=== PATIENT | female | born 1955 | race Caucasian/White ===

== ENCOUNTER 2019-09-15 08:10 | Inpatient (IN) | payer MEDICAID ==
[2019-09-15] MEDS ORDERED: MORPHINE 2 MG/ML CARPUJECT IVP STA (08:36)
[2019-09-15] MEDS ORDERED: IPRATROPIUM 0.2 MG/ML NEB INH STA ×2 (08:36→11:01)
[2019-09-15] MEDS ORDERED: LEVALBUTEROL 1.25 MG/3 ML NEB INH STA ×3 (08:36→11:01)
[2019-09-15] MEDS ORDERED: DEXAMETHASONE 10 MG/ML VIAL IVP STA (08:38)
--- NOTE | 2019-09-15 08:39 | ED Physician Documentation ---
PD HPI DYSPNEA - Stated complaint Stated Complaint: SOA - Chief complaint Chief Complaint: Resp - History obtained from History obtained from: Patient - History of Present Illness Timing - onset: How many days ago (several days to a week of worsening dyspnea, more with exertion and now overnight even at rest. She has history of COPD and uses Atrovent nebulizer along with Spiriva and Advair. She does not use albuterol as it has made her jittery in the past. She does have history of lung cancer and had opted not to have any chemo or radiation so currently not sure of the staging of it. It was diagnosed 2 years ago is still localized in the lung at that time. Likely is more spread at this point.) Timing - onset during: Light activity, Exertion Timing - duration: Days, Weeks (1) Timing - details: Gradual onset, Still present Inciting event(s): No: Out of meds, URI (Has a baseline chronic cough for the last 2 years. She denies it increasing recently and no added sputum production fevers or upper respiratory symptoms.) Improved by: O2 Worsened by: Exertion, Coughing Associated symptoms: Cough (baseline dry), Wheezing, Anxiety. No: Fever, Hemoptysis, Chest pain / discomfort, Palpitations, Bilateral edema Review of Systems Constitutional: reports: Fatigue. denies: Fever, Chills, Myalgias, Weight Loss, Sweats Nose: denies: Rhinorrhea / runny nose, Congestion Throat: denies: Sore throat Cardiac: denies: Chest pain / pressure, Palpitations, Pedal edema, Calf pain Respiratory: reports: Dyspnea, Cough, Wheezing GI: denies: Abdominal Pain, Nausea, Vomiting, Diarrhea, Bloody / black stool : denies: Dysuria Musculoskeletal: denies: Extremity swelling Neurologic: reports: Generalized weakness. denies: Focal weakness, Numbness, Near syncope Psychiatric: reports: Depressed, Anxiety Endocrine: denies: Weight loss Immunocompromised: denies: Immunocompromised, Chemotherapy PD PAST MEDICAL HISTORY - Past Medical History Cardiovascular: None Respiratory: COPD, Other (lung CA, opted for no treatment; Dx 2 years ago) Endocrine/Autoimmune: None - Present Medications Home Medications: Ambulatory Orders Medication Instructions Recorded Confirmed ALPRAZolam [Alprazolam] 0.5 mg PO QID PRN 09/15/19 Atorvastatin Calcium 80 mg PO QPM 09/15/19 Balsalazide Disodium 750 mg PO DAILY 09/15/19 Budesonide/Formoterol Fumarate 2 puffs INH BID 09/15/19 [Symbicort 80-4.5 Mcg Inhaler] Buspirone HCl 30 mg PO BID 09/15/19 Citalopram Hydrobromide 40 mg PO DAILY 09/15/19 [Citalopram HBr] Fluticasone [Flonase] 2 sprays JEANNE DAILY 09/15/19 Hydrocodone/Acetaminophen 1 tab PO QID PRN 09/15/19 [Hydrocodone-Acetamin 5-325 mg] Ipratropium [Atrovent] 0.2 mg INH 09/15/19 Ipratropium [Atrovent] 0.5 mg INH Q6H 09/15/19 Mesalamine 4 gm RI QPM 09/15/19 Mesalamine W/Cleansing Wipes 1 applic RI DAILY PM 09/15/19 [Mesalamine 4 gm/60 ml Kit] Metoprolol Succinate 25 mg PO DAILY 09/15/19 SUMAtriptan [Sumatriptan] 20 mg JEANNE Q24H PRN MDD 40MG 09/15/19 Tiotropium [place] [Spiriva] 1 puffs INH DAILY 09/15/19 Trazodone HCl 100 mg PO QPM 09/15/19 lisinopriL [Zestril] 5 mg PO DAILY 09/15/19 - Allergies Allergies/Adverse Reactions: Allergies Allergy/AdvReac Type Severity Reaction Status Date / Time No Known Drug Allergies Allergy Verified 09/15/19 08:21 PD ED PE NORMAL - Vitals Vital signs reviewed: Yes - General General: Alert and oriented X 3, Well developed/nourished - HEENT HEENT: Moist mucous membranes, Pharynx benign - Neck Neck: Supple, no meningeal sign, No adenopathy - Cardiac Cardiac: No murmur. No: RRR (regular but tachycardic) - Respiratory Respiratory: Other (She is tachypneic with some work of breathing initially. She is able to talk in near complete sentences. She is awake and conversant.). No: Clear bilaterally (She has diffuse expiratory wheezes and tight sounds. There is no coarse nests noted.) - Abdomen Abdomen: Soft, Non tender - Female Female : Deferred - Rectal Rectal: Deferred - Back Back: No CVA TTP - Derm Derm: Normal color, Warm and dry - Extremities Extremities: No tenderness to palpate, Normal ROM s pain, No calf tenderness / cord, Other (1+ edema in both legs. ) - Neuro Neuro: Alert and oriented X 3, No motor deficit, Normal speech Results - Vitals Vitals: Vital Signs - 24 hr 09/15/19 09/15/19 09/15/19 08:21 08:25 08:50 Temperature 37 C Heart Rate 136 H 134 H 132 H Respiratory 24 24 25 H Rate Blood Pressure 122/85 H 123/73 O2 Saturation 86 L 83 L 09/15/19 09/15/19 09/15/19 08:58 09:39 09:52 Temperature Heart Rate 130 H 125 H 118 H Respiratory 24 20 20 Rate Blood Pressure 131/94 H 105/67 O2 Saturation 87 L 88 L 09/15/19 09/15/19 09/15/19 10:02 10:32 11:11 Temperature 37.8 C H Heart Rate 121 H 122 H 120 H Respiratory 20 19 20 Rate Blood Pressure 102/71 O2 Saturation 94 85 L 09/15/19 11:12 Temperature Heart Rate 118 H Respiratory 19 Rate Blood Pressure 119/65 O2 Saturation 92 Oxygen O2 Source Oxymask Oxygen Flow Rate 8 - EKG (time done) 08:38 Rate: Rate (enter#) (132) Rhythm: Sinus tachycardia [place]: Normal Intervals: Normal RI QRS: Normal Ischemia: Normal ST segments. No: ST elevation c/w ischemia, ST depression - Labs Labs: Laboratory Tests 09/15/19 09/15/19 09/15/19 10:00 10:00 10:00 WBC 17.0 H RBC 4.48 Hgb 12.4 Hct 39.4 MCV 87.9 MCH 27.7 MCHC 31.5 L RDW 15.0 Plt Count 378 MPV 8.2 Neut # (Auto) 15.1 H Lymph # (Auto) 0.9 L Will # (Auto) 0.6 Eos # (Auto) 0.2 Baso # (Auto) 0.1 Absolute Nucleated RBC 0.00 Nucleated RBC % 0.0 D-Dimer > 1050.0 H Bld Gas Analysis Time Sample Site ABG pH ABG pCO2 ABG pO2 ABG HCO3 ABG Total CO2 ABG O2 Saturation ABG Base Excess Ugo Test O2 Delivery Device O2 Liters/Min Sodium 134 L Potassium 4.6 Chloride 98 L Carbon Dioxide 26 Anion Gap 10.0 BUN 13 Creatinine 0.7 Estimated GFR (MDRD) 85 L Glucose 123 H Calcium 8.7 Total Bilirubin 0.6 AST 27 ALT 14 Alkaline Phosphatase 64 Troponin I High Sens B-Natriuretic Peptide Total Protein 7.1 Albumin 3.7 Globulin 3.4 Albumin/Globulin Ratio 1.1 Lipase 20 L 09/15/19 09/15/19 09/15/19 10:00 10:00 10:53 WBC RBC Hgb Hct MCV MCH MCHC RDW Plt Count MPV Neut # (Auto) Lymph # (Auto) Will # (Auto) Eos # (Auto) Baso # (Auto) Absolute Nucleated RBC Nucleated RBC % D-Dimer Bld Gas Analysis Time 1053 Sample Site RIGHT RADIAL ABG pH 7.46 H ABG pCO2 37 ABG pO2 47 L* ABG HCO3 25.5 ABG Total CO2 26.7 ABG O2 Saturation 85 L* ABG Base Excess 1.8 Ugo Test POSITIVE O2 Delivery Device OXYMASK O2 Liters/Min 6.00 Sodium Potassium Chloride Carbon Dioxide Anion Gap BUN Creatinine Estimated GFR (MDRD) Glucose Calcium Total Bilirubin AST ALT Alkaline Phosphatase Troponin I High Sens 4.2 B-Natriuretic Peptide 95 Total Protein Albumin Globulin Albumin/Globulin Ratio Lipase PD MEDICAL DECISION MAKING - ED course Complexity details: re-evaluated patient (Breathing more easily. She does appear to be resting. Concern was for hypercarbia rather than just being relaxed and so blood gas was done which showed a low oxygenation but normal PCO2 and pH. The patient's oxygenation was increased with nasal cannula and partial rebreather Ventimask to maintain sats around 90 to 92%. She had unlabored respirations. I did discuss with the patient BiPAP if needed and she was agreeable. I talked with her about intubation and CPR regarding CODE STATUS and she and her dining room captain were uncommitted at this time but would want to think about it with further discussion. She had not wanted treatment of her lung cancer but this is not highly progressed so she is not really at the point of palliative or hospice care. This seems to be mainly an exacerbation of her COPD with potential infectious underlying etiology at this point.), considered differential (She is wheezy with prolonged expiratory phase. Likely COPD exacerbation. She denies cough or current head cold type symptoms. Will get an x-ray to to see any obvious progression of her lung cancer. She could have a considerable effusion or infiltrate or mucous plugging. Check her labs and blood count as well. Initially start with Xopenex and Atrovent as she had had jitteriness from regular albuterol in the past. She is typically on 4 L nasal cannula which right now is providing her at 86 to 90% sats. This should improve with the nebulizer treatment.), d/w patient, d/w senior financial consultant (I talked with the hospitalist regarding further care. I did convey their desire for BiPAP and further discussion regarding other CODE STATUS. I did convey the patient is very anxious and tight area so prior would need sedation or some anxiolysis if doing a CT scan or BiPAP.) Departure - Departure Disposition: 66 [facility] DC/Xfer Clinical Impression: COPD exacerbation Dyspnea Qualifiers: Dyspnea type: dyspnea on exertion Qualified Code(s): R06.09 - Other forms of dyspnea Lung cancer Qualifiers: Laterality: left Lung location: upper lobe of lung Qualified Code(s): C34.12 - Malignant neoplasm of upper lobe, left bronchus or lung Condition: Stable Record reviewed to determine appropriate education?: Yes Discharge Date/Time: 09/15/19 12:22
--- NOTE | 2019-09-15 09:45 | XRAY Report ---
Reason: dyspnea/COPD/lung CA Procedure Date: 09/15/2019 Accession Number: [id number] / [id number] Procedure: XR - Chest 2 View X-Ray CPT Code: 76482 Final Report FULL RESULT: EXAM: CHEST RADIOGRAPHY EXAM DATE: 09/15/2019 09:35 AM. CLINICAL HISTORY: Dyspnea/COPD/lung CA. Increased O2 needs. Not able to breathe well. Diminished lung sounds. Wheezing. COMPARISON: None. TECHNIQUE: 2 views. FINDINGS: Lungs/Pleura: Hyperinflation. Left mid and lower lung airspace opacity also seen in the right lung base. No pneumothorax. No pleural effusions. Mediastinum: Heart size upper normal. Aorta is tortuous. Other: Degenerative changes. IMPRESSION: 1. Left mid and lower lung and right basilar airspace consolidation which may represent multilobar pneumonia. No comparison radiographs are available. Follow-up recommended. 2. Hyperinflation. RADIA
[2019-09-15 10:04] LABS: BASOPHILS # (AUTO) 0.1 10^3/uL (0.0-0.1); BASOPHILS % (AUTO) 0.4 %; EOSINOPHILS # (AUTO) 0.2 10^3/uL (0.0-0.7); EOSINOPHILS % (AUTO) 0.9 %; HGB - HEMOGLOBIN 12.4 g/dL (12.0-16.0); LYMPHOCYTES # (AUTO) 0.9 10^3/uL (1.5-3.5); LYMPHOCYTES % (AUTO) 5.2 %; MEAN CORPUSCULAR HEMOGLOBIN 27.7 pg (27.0-31.0); MEAN CORPUSCULAR HGB CONC 31.5 g/dL (32.0-36.0); MEAN CORPUSCULAR VOLUME 87.9 fL (81.0-99.0); MEAN PLATELET VOLUME 8.2 fL (7.9-10.8); MONOCYTES # (AUTO) 0.6 10^3/uL (0.0-1.0); MONOCYTES % (AUTO) 3.4 %; NEUTROPHILS # (AUTO) 15.1 10^3/uL (1.5-6.6); NEUTROPHILS % (AUTO) 89.1 %; PLT - PLATELET COUNT 378 10^3/uL (130-450); RED BLOOD COUNT 4.48 10^6/uL (4.20-5.40)
[2019-09-15] MEDS ORDERED: cefTRIAXone 1 GM VIAL IVP STA (10:12)
[2019-09-15 10:16] LABS: ALBUMIN 3.7 g/dL (3.2-5.5); ALBUMIN/GLOBULIN RATIO 1.1 (1.0-2.2); BILIRUBIN,TOTAL 0.6 mg/dL (0.2-1.0); CALCIUM 8.7 mg/dL (8.5-10.3); CREATININE 0.7 mg/dL (0.4-1.0); TOTAL PROTEIN 7.1 g/dL (6.7-8.2)
[2019-09-15] MEDS ORDERED: SODIUM CHLORIDE 0.9% 1,000 ML IV ONE (11:00)
[2019-09-15] MEDS ORDERED: LORazepam 2 MG/ML VIAL IVP STA (11:01)
[2019-09-15] MEDS ORDERED: SODIUM CHLORIDE FLUSH 0.9% 10 ML SYRINGE IVP PRN (11:27)
[2019-09-15 11:49] LABS: ABG PCO2 37 mmHg (34-45); ABG PH 7.46 (7.35-7.45)
[2019-09-15 11:50] LABS: ABG BASE EXCESS 1.8 mmol/L (-2.0-3.0); ABG HCO3 25.5 mmol/L (22.0-26.0); ABG TCO2 26.7 MMOL/L (21.0-29.0); ALLEN TEST POSITIVE
[2019-09-15 11:52] LABS: ABG PO2 47 mmHg (80-100)
[2019-09-15 11:53] LABS: ABG OXYGEN SATURATION 85 % (94-98)
[2019-09-15] MEDS ORDERED: PIPERACILLIN/TAZOBACTAM 3.375 GM in SODIUM CHLORIDE 0.9% MINIBAG 100 ML IV SCH (13:00)
[2019-09-15] MEDS ORDERED: METOPROLOL SUCCINATE 25 MG TABLET PO SCH (13:00)
--- NOTE | 2019-09-15 13:27 | HISTORY & PHYSICAL EXAMINATION ---
Chief Complaint - Chief Complaint Chief Complaint: shortness of breath, cough History of Present Illness - Admitted From Admitted From:: ED - History Obtained From Records Reviewed: yes History obtained from: patient, her S.O, and chart review Exam Limitations: anxiety - History of Present Illness HPI Comment/Other: Eve Mcmanus is an ill appearing 63-year old white female with a past medical history of hypertension, myocardial infarction, CAD, migraines, GERD, ulcerative colitis, COPD on home oxygen, tobacco dependence in remission, known lung cancer, and anxiety. She was brought into the ED by her significant other with a 2 week history of a progressive cough, increased shortness of breath, non- productive cough, and increased oxygen needs from 4L nasal cannula at home to 6L without improvement. Imaging of a chest x-ray while in the ED showed left mid to lower lung, right consolidation, which may represent multi-lobar pneumonia. Labs show an elevated WBC count of 17, sodium 134, d-dimer 1050, glucose 123, and an ABG with an elevated pH of 7.46, pO1 47, O2 saturation 85. The patient was anxious on exam and could express her wishes of full resuscitation in the event she requires temporary respiratory support, BiPAP if needed. She was swabbed for COVID-19 while in the ED, and was placed on a high flow nasal cannula with droplet precautions once arriving to the nursing unit. She has been admitted for inpatient care for COPD exacerbation, pneumonia, and evaluation via CT for pulmonary emboli. History - Past Medical History Cardiovascular: reports: Hypertension, High cholesterol, Coronary artery disease, Peripheral Vascular Disease, Murmur Respiratory: reports: COPD, Emphysema, Shortness of breath (home oxygen @ 4L chronically), Other (lung cancer) Neuro: reports: Headaches, Migraines Endocrine/Autoimmune: reports: None GI: reports: GERD, Ulcerative colitis WASH AND GREASER: reports: None : reports: Incontinence (stress), Nocturia, Frequency HEENT: reports: Chronic vision loss, Chronic sinusitis, Chronic hearing loss Psych: reports: Anxiety Musculoskeletal: reports: Osteoarthritis, Fatigue, Chronic back pain Derm: reports: None MRSA Hx?: No Other Past Medical History: lung cancer, pt opted no treatment - Past Surgical History General: reports: Colonoscopy, EGD - Family & Social History Living arrangement: At home Living Situation: With spouse/s.o. Social History Notes: [place] Khari, her significant other. She admits to life long tobacco dependence, denies alcholism, or illicit drug use. She wishes to be a FULL code. - Substance History Use: Uses substance without health or social issues: NONE Abuse: Recurrent use of substance despite neg consequences: NONE Dependence: Experiences withdrawal or developed tolerances: NONE - POLST Patient has POLST: No POLST Status: Full Code Meds/Allgy - Home Medications Home Medications: Ambulatory Orders Medication Instructions Recorded Confirmed ALPRAZolam [Alprazolam] 0.5 - 1 mg PO TID PRN 09/15/19 09/15/19 Atorvastatin Calcium 80 mg PO QPM 09/15/19 09/15/19 Balsalazide Disodium 750 mg PO DAILY 09/15/19 09/15/19 Budesonide/Formoterol Fumarate 2 puffs INH BID 09/15/19 09/15/19 [Symbicort 80-4.5 Mcg Inhaler] Buspirone HCl 20 mg PO TID 09/15/19 09/15/19 Citalopram Hydrobromide 40 mg PO DAILY 09/15/19 09/15/19 [Citalopram HBr] Fluticasone [Flonase] 2 sprays JEANNE DAILY 09/15/19 09/15/19 Hydrocodone/Acetaminophen 1 tab PO QID PRN 09/15/19 09/15/19 [Hydrocodone-Acetamin 5-325 mg] Ipratropium [Atrovent] 0.2 mg INH QID PRN 09/15/19 09/15/19 Mesalamine 4 gm HI QPM 09/15/19 09/15/19 Metoprolol Succinate 25 mg PO DAILY 09/15/19 09/15/19 SUMAtriptan [Sumatriptan] 20 mg JEANNE Q24H PRN MDD 40MG 09/15/19 09/15/19 Tiotropium [place] [Spiriva] 1 puffs INH QPM 09/15/19 09/15/19 Trazodone HCl 100 mg PO QPM 09/15/19 09/15/19 lisinopriL [Zestril] 5 mg PO DAILY 09/15/19 09/15/19 - Allergies Allergies/Adverse Reactions: Allergies Allergy/AdvReac Type Severity Reaction Status Date / Time No Known Drug Allergies Allergy Verified 09/15/19 08:21 Review of Systems - Constitutional Constitutional: reports: Fatigue, Fever, Chills, Weakness, Poor appetite - Eyes Eyes: reports: Vision loss - Ears, Nose & Throat Ears, Nose & Throat: reports: Tinnitus, Vertigo, Postnasal drainage, Sore throat, Hoarseness - Cardiovascular Cariovascular: reports: Chest pain, Edema, Lightheadedness, Exertional dyspnea, Decr. exercise tolerance, Orthopnea - Respiratory Respiratory: reports: Cough, Sputum production, Wheezing, Orthopnea, SOB at rest, SOB with exertion - Gastrointestinal Gastrointestinal: reports: Diarrhea, Change in bowel habits, Nausea, Reflux/heartburn, Bloating, Poor appetite - Genitourinary Genitourinary: reports: Dysuria, Frequency, Incontinence, Nocturia - Musculoskeletal Musculoskeletal: reports: Back pain, Muscle aches, Limited range of motion - Integumentary Integumentary: reports: Dryness - Neurological Neurological: reports: General weakness, Headache, Dizziness, Memory problems, Pre-existing deficit - Psychiatric Psychiatric: reports: Depression, Anxiety - Hematologic/Lymphatic Hematologic/Lymphatic: reports: Anemia, Bleeding tendencies, Recurrent infections - All Other Systems All Other Systems: reports: Reviewed and negative Prior Level of Functionality: Minimally ambulatory, no recent falls, lives w/ significant other, Khari Exam - Vital Signs Reviewed Vital Signs: Yes Vital Signs: Vital Signs x48h Temp Pulse Resp BP Pulse Ox 09/15/19 12:04 37.4 C 117 H 18 103/62 95 09/15/19 11:55 116 H 18 84/63 L 94 09/15/19 11:12 118 H 19 119/65 92 09/15/19 11:11 120 H 20 09/15/19 10:32 37.8 C H 122 H 19 85 L 09/15/19 10:02 121 H 20 102/71 94 09/15/19 09:52 118 H 20 09/15/19 09:39 125 H 20 105/67 88 L 09/15/19 08:58 130 H 24 131/94 H 87 L 09/15/19 08:50 132 H 25 H 09/15/19 08:25 134 H 24 123/73 83 L 09/15/19 08:21 37 C 136 H 24 122/85 H 86 L - Physical Exam General Appearance: positive: Alert, Moderate distress, Anxious Eyes Bilateral: positive: PERRL, No lid inflammation ENT: positive: Pharyngeal erythema, Dry mucous membranes Neck: positive: No JVD, Trachea midline, Stiff neck Respiratory: positive: Chest non-tender, Rhonchi, Other (scattered crackles to left mid lung, diminished, bilaterally) Cardiovascular: positive: No gallop, Tachycardia, Systolic murmur, Decreased pulse(s) Peripheral Pulses: positive: 1+ Abdomen: positive: Non-tender, Nml bowel sounds, Other (rounded, soft) Back: positive: Nml inspection Skin: positive: No rash, Warm, Dry Extremities: positive: Non-tender, Full ROM, Pedal edema (trace, BLEs), Joint swelling Neurologic/Psychiatric: positive: Oriented x3, CN's nml (2-12), Motor nml, Sensation nml, Weakness, Sensory loss, Slurred/abnml speech (short sentances, due to breathing difficulties), Depressed mood/affect Reflexes: Bicep (R): 3+, Bicep (L): 3+ Conclusion/Plan - Problem List (1) COPD exacerbation Conclusion/Plan: -Known tobacco dependence, now in remission -Known lung cancer (left lung) -Baseline home oxygen -Home inhalers include: Spiriva, Atrovent, Symbicort, and Flonase nasal spray -Presenting symptoms, progressive cough, progressive shortness of breath, air hunger, increased oxygen needs, elevated WBC count, all requiring inpatient stay -CT of chest was not obtained due to increased anxiety, baseline patient claustrophobia -COVID-19 swabs in process -Influenza A & B to be obtained -Starting high dose IV steroids, IV Zosyn, expectorants, Xopenex nebs, routine respiratory cares -Monitor for improvement Acute respiratory failure with hypoxia -Baseline home oxygen at 4L, turned up to 6L without relief -Abnormal ABG, showing alkalosis, compensating -Treating initially for COPD exacerbation with pneumonia -Await influenza and COVID-19 swabs -Await chest CT to evaluate for pulmonary emboli, progression of lung cancer, and/or pneumonia -Support respiratory system with high flow nasal cannula, respiratory cares -Monitor for improvement Pneumonia -Progressive and productive cough which first started 2-weeks ago -Now with worsening hypoxia requiring inpatient treatment -No sick contacts per patient on exam -Starting IV Zosyn, IV steroids, routine Xopenex nebulizers -Await chest CT results Lung cancer -Patient had a lung biopsy at an unknown time, confirming this, left lung -Predisposing her to a higher risk of DVT/PE, COVID-19 or recurrent pneumonia -Initial chest x-ray is questionable for lung tumor, or acute infiltrate -Baseline home oxygen, ~4L -Await chest CT results to guide treatment Anxiety disorder -Known history of this, takes alprazolam, buspirone, and trazodone for sleep at home -Continues on lorazepam, morphine for air hunger, and home buspirone -IV lorazepam prior to chest CT tonight -Monitor for air hunger, or other symptoms - Lab Results Lab results reviewed: Yes Fish Bones: 09/15/19 10:00 09/15/19 10:00 - Diagnostic Imaging Results Diagnostic Imaging Results: positive: Final report reviewed Diagnostic Imaging Results Comments: EXAM: CHEST RADIOGRAPHY 09/15/2019 09:35 AM IMPRESSION: 1. Left mid and lower lung and right basilar airspace consolidation which may represent multi-lobar pneumonia. No comparison radiographs are available. Follow-up recommended. 2. Hyperinflation. Core Measures - Anticipated LOS I expect patient to be DC'd or transferred within 96 hours.: Yes - DVT/VTE - Prophylaxis VTE/DVT Device ordered at admit?: Yes VTE/DVT Prophylaxis med ordered at admit?: Yes - Stroke - Rehab Assessment Rehab services assessment to be ordered?: No Not Ordered - Medical Reason: Contraindicated - AMI - Statin at Admit Aspirin Prescribed on Admit: Yes
[2019-09-15] MEDS: LEVALBUTEROL 1.25 MG/3 ML NEB INH SCH ×2 (14:05→19:23)
[2019-09-15] MEDS: ENOXAPARIN 40 MG/0.4 ML SYRINGE SUBQ SCH (14:31)
[2019-09-15] MEDS: methylPREDNISolone SUCCINATE 125 MG/2 ML VIAL IVP SCH ×3 (14:32→21:30)
[2019-09-15] MEDS: PIPERACILLIN/TAZOBACTAM 3.375 GM in SODIUM CHLORIDE 0.9% MINIBAG 100 ML IV SCH ×2 (16:13→21:29)
[2019-09-15] MEDS: SODIUM CHLORIDE FLUSH 0.9% 10 ML SYRINGE IVP SCH (16:14)
[2019-09-15] MEDS: LORazepam 1 MG TABLET PO PRN (16:27)
[2019-09-15] MEDS: MORPHINE 2 MG/ML CARPUJECT IVP PRN (16:28)
--- NOTE | 2019-09-15 16:40 | PHARMACY PROGRESS NOTE ---
- Best Possible Medication History Admit Date and Time: 09/15/19 1126 Processed by: Pharmacy Medication History completed: Yes Patient Interview: Pt unable to participate Secondary Source(s): Pharmacy records, Insurance records (Medication list gen erated from consistent and recent pharmacy refill history over previous 12 months from [employer] application, that included instructions. Patient currently in restricted access status.) As the person ultimately responsible for medication therapy, providers are able to order a medication from an existing home medication list in [facility] via the "Reconcile Routine" prior to Confirmation of that medication by dealer support technician. Such practice is discouraged except when the physician, in their clinical judgment, deems that a medical need exists for a medication without regard to previous use.
[2019-09-15] MEDS ORDERED: HYDROcod/ACETAM 5/325 MG TABLET PO PRN (17:41)
[2019-09-15] MEDS ORDERED: LORazepam 2 MG/ML VIAL IVP ONE (18:00)
[2019-09-15] MEDS: BUDESONIDE 0.5 MG/2 ML NEB INH SCH (19:23)
[2019-09-15] MEDS: FORMOTEROL FUMARATE NEB 20 MCG/2 ML INH SCH (19:23)
[2019-09-15] MEDS: guaiFENesin 600 MG TABLET PO SCH (21:30)
[2019-09-15] MEDS: busPIRone 5 MG TABLET PO SCH (21:30)
[2019-09-15] MEDS: traZODone 50 MG TABLET PO SCH (21:30)
[2019-09-15] MEDS ORDERED: AZITHROMYCIN 250 MG TABLET PO STA (22:43)
[2019-09-16] MEDS: LEVALBUTEROL 1.25 MG/3 ML NEB INH PRN (00:46)
[2019-09-16] MEDS: SODIUM CHLORIDE FLUSH 0.9% 10 ML SYRINGE IVP SCH ×3 (00:54→16:16)
[2019-09-16] MEDS: LORazepam 1 MG TABLET PO PRN ×3 (00:59→16:38)
[2019-09-16 05:36] LABS: BASOPHILS % (AUTO) 0.1 %; EOSINOPHILS % (AUTO) 0.1 %; HGB - HEMOGLOBIN 10.5 g/dL (12.0-16.0); LYMPHOCYTES # (AUTO) 0.9 10^3/uL (1.5-3.5); LYMPHOCYTES % (AUTO) 7.2 %; MEAN CORPUSCULAR HEMOGLOBIN 27.6 pg (27.0-31.0); MEAN CORPUSCULAR HGB CONC 30.6 g/dL (32.0-36.0); MEAN CORPUSCULAR VOLUME 90.3 fL (81.0-99.0); MONOCYTES # (AUTO) 0.2 10^3/uL (0.0-1.0); MONOCYTES % (AUTO) 1.6 %; NEUTROPHILS # (AUTO) 10.6 10^3/uL (1.5-6.6); NEUTROPHILS % (AUTO) 90.5 %; PLT - PLATELET COUNT 324 10^3/uL (130-450); RED CELL DISTRIBUTION WIDTH 15.5 % (12.0-15.0); WHITE BLOOD COUNT 11.7 x10^3/uL (4.8-10.8)
[2019-09-16 05:49] LABS: ALBUMIN 3.2 g/dL (3.2-5.5); ALBUMIN/GLOBULIN RATIO 0.9 (1.0-2.2); BILIRUBIN,TOTAL 0.6 mg/dL (0.2-1.0); CALCIUM 8.3 mg/dL (8.5-10.3); CREATININE 0.8 mg/dL (0.4-1.0); MAGNESIUM 2.3 mg/dL (1.7-2.8); PHOSPHORUS 3.3 mg/dL (2.5-4.6); TOTAL PROTEIN 6.6 g/dL (6.7-8.2)
[2019-09-16] MEDS: methylPREDNISolone SUCCINATE 125 MG/2 ML VIAL IVP SCH ×2 (06:04→13:48)
[2019-09-16] MEDS: busPIRone 5 MG TABLET PO SCH ×3 (06:04→21:47)
[2019-09-16] MEDS: PIPERACILLIN/TAZOBACTAM 3.375 GM in SODIUM CHLORIDE 0.9% MINIBAG 100 ML IV SCH ×3 (06:05→21:46)
[2019-09-16] MEDS: MORPHINE 2 MG/ML CARPUJECT IVP PRN ×2 (06:24→20:32)
[2019-09-16] MEDS: BUDESONIDE 0.5 MG/2 ML NEB INH SCH ×2 (08:06→19:47)
[2019-09-16] MEDS: FORMOTEROL FUMARATE NEB 20 MCG/2 ML INH SCH ×2 (08:06→19:46)
[2019-09-16] MEDS: LEVALBUTEROL 1.25 MG/3 ML NEB INH SCH ×4 (08:06→19:46)
[2019-09-16] MEDS ORDERED: FLUTICASONE NASAL SPRAY NAS SCH (09:00)
[2019-09-16] MEDS ORDERED: FUROSEMIDE 40 MG/4 ML VIAL IVP SCH (09:00)
[2019-09-16] MEDS ORDERED: POTASSIUM CHLORIDE 20 MEQ TABLET PO SCH (09:01)
[2019-09-16] MEDS: AZITHROMYCIN 250 MG TABLET PO SCH (09:31)
[2019-09-16] MEDS: guaiFENesin 600 MG TABLET PO SCH ×2 (09:31→21:47)
[2019-09-16] MEDS: CITALOPRAM HYDROBROMIDE 20 MG TABLET PO SCH (09:31)
[2019-09-16] MEDS: MAGNESIUM OXIDE 400 MG TABLET PO SCH ×2 (09:31→16:28)
[2019-09-16] MEDS: METOPROLOL SUCCINATE 25 MG TABLET PO SCH (09:32)
[2019-09-16] MEDS: OXYMETAZOLINE HCL 100 SPRAYS BOTTLE NAS SCH ×2 (09:33→21:44)
[2019-09-16] MEDS: ENOXAPARIN 40 MG/0.4 ML SYRINGE SUBQ SCH (09:33)
--- NOTE | 2019-09-16 13:50 | PROVIDER PROGRESS NOTE ---
Subjective - Prog Note Date Prog Note Date: 09/16/19 Prog Note Time: 13:49 - Subjective Pt reports feeling: Improved Subjective: Eve has been tearful today again, frustration, and fear are the ring leaders in this reaction, steroids are changing her into a "troll" with having profound mood swings. Eve and her significant other, Khari were given a summary of the [facility] hospital diagnoses and what we are doing for her to clear up any questions and to help them lead her care. She continues to have profound anxiety surrounding the possibility of a chest CT. She will undergo both an echocardiogram and duplex Doppler to further rule out or rule in the possibility of pulmonary emboli. She has had improvement in her symptoms since the IV lasix, but still has intermittent tachycardia on telemetry. Awaiting final read on COV ID [id number] result before both of the tests tomorrow. Current Medications - Current Medications Current Medications: Active Medications: [place] 5/325 2 tab PO QID PRN Azithromycin (Zithromax) 250 mg PO DAILY AMADO Budesonide (Pulmicort) 0.5 mg INH RTBID AMADO Buspirone HCl (Buspar) 20 mg PO TID AMADO Citalopram Hydrobromide (Celexa) 40 mg PO DAILY AMADO Enoxaparin Sodium (Lovenox) 40 mg SUBQ DAILY AMADO Formoterol Fumarate (Perforomist) 20 mcg INH RTBID AMADO Guaifenesin (Mucinex) 600 mg PO BID AMADO Piperacillin Sod/Tazobactam 100 mls @ 25 mls/hr IV Q8H AMADO Levalbuterol HCl (Xopenex) 1.25 mg INH RTQ4H PRN Levalbuterol HCl (Xopenex) 1.25 mg INH RTBID AMADO Lorazepam (Ativan) 1 mg PO Q6H PRN Magnesium Oxide (Mag Ox) 400 mg PO BIDWM AMADO Methylprednisolone Sodium Succinate 60 mg IVP BID AMADO to start in the AM (got 2 doses of 125 today) Metoprolol Succinate (Toprol Xl) 50 mg PO DAILY AMADO (adjusted up today for ongoing tachycardia) Morphine Sulfate (Morphine (Carpuject) 2 mg IVP Q2HR PRN Oxymetazoline HCl (Afrin) 2 sprays JEANNE BID AMADO Trazodone HCl (Desyrel) 50 mg PO QPM AMADO Vitamin D3 & vitamin C to start in the AM Balsalazide for her Ulcerative colitis to start in the AM HOME meds: ALPRAZolam [Alprazolam] 0.5 - 1 mg PO TID PRN 09/15/19 Atorvastatin Calcium 80 mg PO QPM 09/15/19 Balsalazide Disodium 750 mg PO DAILY 09/15/19 Budesonide/Formoterol Fumarate [Symbicort 2 puffs INH BID 09/15/19 Buspirone HCl 20 mg PO TID 09/15/19 Citalopram 40 mg PO DAILY 09/15/19 Fluticasone [Flonase] 2 sprays JEANNE DAILY 09/15/19 Hydrocodone/Acetaminophen 1 tab PO QID PRN 09/15/19 Ipratropium [Atrovent] 0.2 mg INH QID PRN 09/15/19 Mesalamine 4 gm [place] QPM 09/15/19 Metoprolol Succinate 25 mg PO DAILY 09/15/19 SUMAtriptan [Sumatriptan] 20 mg JEANNE Q24H PRN MDD 40MG 09/15/19 Tiotropium [place] [Spiriva] 1 puffs INH QPM 09/15/19 Trazodone HCl 100 mg PO QPM 09/15/19 lisinopriL [Zestril] 5 mg PO DAILY 09/15/19 Objective - Vital Signs/Intake & Output Reviewed Vital Signs: Yes Vital Signs: Vital Signs x48h Temp Pulse Pulse Resp BP Pulse Ox 09/16/19 12:16 36.9 C 98 20 104/51 L 94 09/16/19 11:48 92 20 09/16/19 08:51 36.4 C L 102 H 20 111/57 L 94 09/16/19 08:06 89 20 Intake & Output: Intake & Output 09/13/19 09/14/19 09/15/19 09/16/19 23:59 23:59 23:59 23:59 Intake Total 1200 200 Output Total 2700 Balance 1200 -2500 - Objective General Appearance: positive: Alert, Moderate distress, Anxious Eyes Bilateral: positive: PERRL, No lid inflammation Eyes: OU Conjunctivae pale ENT: positive: Pharyngeal erythema, Dry mucous membranes Neck: positive: No JVD, Trachea midline, Stiff neck Respiratory: positive: Chest non-tender, Wheezes, Rhonchi Cardiovascular: positive: No gallop, Tachycardia, Systolic murmur, Decreased pulse(s) Peripheral Pulses: 1+ Radial (R), 1+ Radial (L) Abdomen: positive: Non-tender, No organomegaly, Nml bowel sounds Back: positive: Nml inspection Skin: positive: Color nml, No rash, Warm, Dry, Cyanosis (Minimal today, fingertips, toes become cool), Other (bronze toned, pale) Extremities: positive: Non-tender, Full ROM, Nml appearance, No pedal edema Neurologic/Psychiatric: positive: Oriented x3, CN's nml (2-12), Motor nml, Sensation nml, Weakness, Sensory loss, Depressed mood/affect (flat, tearful easily) Reflexes: Bicep (R): 2+, Bicep (L): 2+ - Lab Results Fish Bones: 09/16/19 05:05 09/16/19 05:05 Other Labs: Lab Results x24hrs 09/16/19 09/16/19 09/16/19 Range/Units 05:05 05:05 05:05 WBC (4.8-10.8) x10^3/uL RBC (4.20-5.40) 10^6/uL Hgb (12.0-16.0) g/dL Hct (37.0-47.0) % MCV (81.0-99.0) fL MCH (27.0-31.0) pg MCHC (32.0-36.0) g/dL RDW (12.0-15.0) % Plt Count (130-450) 10^3/uL MPV (7.9-10.8) fL Neut # (Auto) (1.5-6.6) 10^3/uL Lymph # (Auto) (1.5-3.5) 10^3/uL [place] # (Auto) (0.0-1.0) 10^3/uL Eos # (Auto) (0.0-0.7) 10^3/uL Baso # (Auto) (0.0-0.1) 10^3/uL Absolute Nucleated RBC x10^3/uL Nucleated RBC % /100WBC Sodium 138 (135-145) mmol/L Potassium 3.6 (3.5-5.0) mmol/L Chloride 101 (101-111) mmol/L Carbon Dioxide 27 (21-32) mmol/L Anion Gap 10.0 (6-13) BUN 13 (6-20) mg/dL Creatinine 0.8 (0.4-1.0) mg/dL Estimated GFR (MDRD) 73 L (>89) Glucose 165 H (70-100) mg/dL Lactic Acid 1.2 (0.5-2.2) mmol/L Calcium 8.3 L (8.5-10.3) mg/dL Phosphorus 3.3 (2.5-4.6) mg/dL Magnesium 2.3 (1.7-2.8) mg/dL Total Bilirubin 0.6 (0.2-1.0) mg/dL AST 26 (10-42) IU/L ALT 13 (10-60) IU/L Alkaline Phosphatase 51 (42-121) IU/L B-Natriuretic Peptide 186 H (5-100) pg/mL Total Protein 6.6 L (6.7-8.2) g/dL Albumin 3.2 (3.2-5.5) g/dL Globulin 3.4 (2.1-4.2) g/dL Albumin/Globulin Ratio 0.9 L (1.0-2.2) Influenza A (Rapid) (Negative) Influenza B (Rapid) (Negative) 09/16/19 09/15/19 Range/Units 05:05 17:55 WBC 11.7 H (4.8-10.8) x10^3/uL RBC 3.80 L (4.20-5.40) 10^6/uL Hgb 10.5 L (12.0-16.0) g/dL Hct 34.3 L (37.0-47.0) % MCV 90.3 (81.0-99.0) fL MCH 27.6 (27.0-31.0) pg MCHC 30.6 L (32.0-36.0) g/dL RDW 15.5 H (12.0-15.0) % Plt Count 324 (130-450) 10^3/uL MPV 9.0 (7.9-10.8) fL Neut # (Auto) 10.6 H (1.5-6.6) 10^3/uL Lymph # (Auto) 0.9 L (1.5-3.5) 10^3/uL [place]pp # (Auto) 0.2 (0.0-1.0) 10^3/uL Eos # (Auto) 0.0 (0.0-0.7) 10^3/uL Baso # (Auto) 0.0 (0.0-0.1) 10^3/uL Absolute Nucleated RBC 0.00 x10^3/uL Nucleated RBC % 0.0 /100WBC Sodium (135-145) mmol/L Potassium (3.5-5.0) mmol/L Chloride (101-111) mmol/L Carbon Dioxide (21-32) mmol/L Anion Gap (6-13) BUN (6-20) mg/dL Creatinine (0.4-1.0) mg/dL Estimated GFR (MDRD) (>89) Glucose (70-100) mg/dL Lactic Acid (0.5-2.2) mmol/L Calcium (8.5-10.3) mg/dL Phosphorus (2.5-4.6) mg/dL Magnesium (1.7-2.8) mg/dL Total Bilirubin (0.2-1.0) mg/dL AST (10-42) IU/L ALT (10-60) IU/L Alkaline Phosphatase (42-121) IU/L B-Natriuretic Peptide (5-100) pg/mL Total Protein (6.7-8.2) g/dL Albumin (3.2-5.5) g/dL Globulin (2.1-4.2) g/dL Albumin/Globulin Ratio (1.0-2.2) Influenza A (Rapid) Negative (Negative) Influenza B (Rapid) Negative (Negative) ABX Reporting Has patient been on IV antibiotics over the past 48 hours?: Yes Assessment/Plan - Problem List (1) COPD exacerbation Impression: -Known tobacco dependence, now in remission -Known lung cancer (left lung) -Baseline home oxygen -Home inhalers include: Spiriva, Atrovent, Symbicort, and Flonase nasal spray -Presenting symptoms, progressive cough, progressive shortness of breath, air hunger, increased oxygen needs, elevated WBC count, all requiring inpatient stay -CT of chest was not obtained due to increased anxiety, baseline patient claustrophobia -COVID-19 swabs in process, no results today -Influenza A & B are negative -Sending a sputum sample today -Continues on IV steroids with reduced dosing, IV Zosyn, expectorants, Xopenex nebs, routine respiratory cares -Keep oxygen 88-92%, oxygen order adjusted accordingly -Monitor for improvement Acute respiratory failure with hypoxia -Baseline home oxygen at 4L, turned up to 6L without relief -Abnormal ABG, showing alkalosis, compensating -Treating initially for COPD exacerbation with pneumonia -Await influenza and COVID-19 swabs -Await chest CT to evaluate for pulmonary emboli, progression of lung cancer, and/or pneumonia -Support respiratory system with high flow nasal cannula, respiratory cares -Monitor for improvement Pneumonia -Progressive and productive cough which first started 2-weeks ago -Now with worsening hypoxia requiring inpatient treatment -No sick contacts per patient on exam -Continues on IV Zosyn, azithromycin, IV steroids, routine Xopenex nebulizers -Monitor for improvement Lung cancer -Patient had a lung biopsy at an unknown time, confirming this, left lung -Predisposing her to a higher risk of DVT/PE, COVID-19 or recurrent pneumonia -Initial chest x-ray is questionable for lung tumor, or acute infiltrate -Baseline home oxygen, ~4L -Patient still refuses chest CT -They are considering a Palliative care consult, but need time to think about this Ulcerative colitis -Longstanding disease -Immunocompromised as a result of years of therapy -Takes Balsalazide & mesalamine [place] at home, now resumed here -High dose IV steroids were initially given, so ok to have skipped a few doses -No colostomy as a result of this disease, no bloody diarrhea -Continue to monitor stools, symptoms and abdominal pain Anxiety disorder -Known history of this, takes alprazolam, buspirone, and trazodone for sleep at home -Continues on lorazepam, morphine for air hunger, and home buspirone -Tearful today again, frustration, and fear are the ring leaders in this reaction, steroids are changing her into a "troll" with having profound mood swings -Monitor for air hunger, or other symptoms
[2019-09-16] MEDS ORDERED: methylPREDNISolone SUCCINATE 125 MG/2 ML VIAL IVP SCH (14:00)
[2019-09-16] MEDS ORDERED: BENZOCAINE/MENTHOL LOZENGE MM PRN (17:55)
[2019-09-16] MEDS ORDERED: MESALAMINE 4 GM PR PRN (17:55)
[2019-09-16] MEDS ORDERED: SODIUM CHLORIDE 0.65% NASAL SPRAY NAS PRN (17:55)
[2019-09-16] MEDS ORDERED: MESALAMINE 4 GM PR SCH (21:00)
[2019-09-16] MEDS: ATORVASTATIN 40 MG TABLET PO SCH (21:46)
[2019-09-16] MEDS: HYDROcod/ACETAM 5/325 MG TABLET PO PRN (21:46)
[2019-09-16] MEDS: traZODone 50 MG TABLET PO SCH (21:47)
[2019-09-17] MEDS: MORPHINE 2 MG/ML CARPUJECT IVP PRN ×5 (00:57→17:13)
[2019-09-17] MEDS: SODIUM CHLORIDE FLUSH 0.9% 10 ML SYRINGE IVP SCH ×3 (01:22→17:13)
[2019-09-17] MEDS: LEVALBUTEROL 1.25 MG/3 ML NEB INH PRN ×4 (01:35→21:33)
[2019-09-17] MEDS: LORazepam 1 MG TABLET PO PRN ×3 (03:19→19:45)
[2019-09-17] MEDS: methylPREDNISolone SUCCINATE 125 MG/2 ML VIAL IVP SCH ×2 (05:37→08:37)
[2019-09-17] MEDS: busPIRone 5 MG TABLET PO SCH ×3 (05:41→21:14)
[2019-09-17] MEDS: PIPERACILLIN/TAZOBACTAM 3.375 GM in SODIUM CHLORIDE 0.9% MINIBAG 100 ML IV SCH ×2 (05:43→13:43)
[2019-09-17] MEDS: HYDROcod/ACETAM 5/325 MG TABLET PO PRN (06:19)
[2019-09-17] MEDS: FORMOTEROL FUMARATE NEB 20 MCG/2 ML INH SCH ×2 (06:57→21:34)
[2019-09-17] MEDS: LEVALBUTEROL 1.25 MG/3 ML NEB INH SCH (06:57)
[2019-09-17] MEDS: BUDESONIDE 0.5 MG/2 ML NEB INH SCH ×2 (06:57→21:33)
[2019-09-17 07:00] LABS: BASOPHILS % (AUTO) 0.2 %; HGB - HEMOGLOBIN 10.5 g/dL (12.0-16.0); LYMPHOCYTES % (AUTO) 4.2 %; MEAN CORPUSCULAR HEMOGLOBIN 26.7 pg (27.0-31.0); MEAN CORPUSCULAR HGB CONC 30.8 g/dL (32.0-36.0); MEAN CORPUSCULAR VOLUME 86.8 fL (81.0-99.0); MEAN PLATELET VOLUME 8.4 fL (7.9-10.8); MONOCYTES % (AUTO) 4.3 %; NEUTROPHILS % (AUTO) 89.5 %; PLT - PLATELET COUNT 443 10^3/uL (130-450); RED BLOOD COUNT 3.93 10^6/uL (4.20-5.40); RED CELL DISTRIBUTION WIDTH 15.6 % (12.0-15.0); WHITE BLOOD COUNT 22.6 x10^3/uL (4.8-10.8)
[2019-09-17 07:03] LABS: ALBUMIN 3.2 g/dL (3.2-5.5); BILIRUBIN,TOTAL 0.5 mg/dL (0.2-1.0); CREATININE 0.7 mg/dL (0.4-1.0); TOTAL PROTEIN 6.4 g/dL (6.7-8.2)
[2019-09-17 07:21] LABS: ABNORMAL LYMPHS % (MANUAL) 0 %; BAND NEUTROPHILS % (MANUAL) 0 %
[2019-09-17 07:47] LABS: LYMPHOCYTES # (MANUAL) 0.7 10^3/uL (1.5-3.5); LYMPHOCYTES % (MANUAL) 3 %; MONOCYTES # (MANUAL) 1.8 10^3/uL (0.0-1.0)
[2019-09-17 07:49] LABS: PLATELET MORPHOLOGY NORMAL APPEARANCE (NORMAL); RBC MORPHOLOGY (MULTIPLE) 1+ POLYCHROMASIA (NORMAL)
[2019-09-17 07:50] LABS: DIFFERENTIAL COMMENT MANUAL DIFFERENTIAL; PLATELET ESTIMATE, MANUAL NORMAL (130-450,000) (NORMAL)
[2019-09-17] MEDS: METOPROLOL SUCCINATE 25 MG TABLET PO SCH (08:29)
[2019-09-17] MEDS: guaiFENesin 600 MG TABLET PO SCH ×2 (08:29→21:14)
[2019-09-17] MEDS: ASCORBIC ACID CHEW 500 MG TABLET PO SCH (08:29)
[2019-09-17] MEDS: CHOLECALCIFEROL 1,000 UNIT TABLET PO SCH (08:29)
[2019-09-17] MEDS: CITALOPRAM HYDROBROMIDE 20 MG TABLET PO SCH (08:29)
[2019-09-17] MEDS: AZITHROMYCIN 250 MG TABLET PO SCH (08:30)
[2019-09-17] MEDS: MAGNESIUM OXIDE 400 MG TABLET PO SCH ×2 (08:30→17:12)
[2019-09-17] MEDS: ENOXAPARIN 40 MG/0.4 ML SYRINGE SUBQ SCH (08:32)
[2019-09-17] MEDS: OXYMETAZOLINE HCL 100 SPRAYS BOTTLE NAS SCH ×2 (08:32→21:15)
[2019-09-17] MEDS ORDERED: BALSALAZIDE DISODIUM 750 MG PO SCH ×2 (09:00)
--- NOTE | 2019-09-17 14:00 | PROVIDER PROGRESS NOTE ---
Subjective - Prog Note Date Prog Note Date: 09/17/19 Prog Note Time: 13:59 - Subjective Pt reports feeling: Improved Subjective: Eve states that her sleep has minimally improved compared to her first night here. She denies any new symptoms, and feels that her ulcerative colitis is in good order since moving her bowels last night. She thinks that her cough has improved and her COVID-19 results are still pending. Her significant other is at her bedside and also notes that the patient is much improved. During this exam, I changed her from high flow NC to regular NC with good results. She states she seems to breath better this way. We will continue to keep her oxygen saturation between 88-90%. Current Medications - Current Medications Current Medications: Active Medications: Hydrocodone Bitart/Acetaminophen 2 tab PO QID PRN Ascorbic Acid (Vitamin C) 500 mg PO DAILY COUNTS INCLUDE 234 BEDS AT THE [facility] Atorvastatin Calcium (Lipitor) 80 mg PO QPM AMADO Azithromycin (Zithromax) 250 mg PO DAILY AMADO Budesonide (Pulmicort) 0.5 mg INH RTBID AMADO Buspirone HCl (Buspar) 20 mg PO TID AMADO Cholecalciferol (Vitamin D3) 2,000 unit PO DAILY COUNTS INCLUDE 234 BEDS AT THE [facility] Citalopram Hydrobromide (Celexa) 40 mg PO DAILY COUNTS INCLUDE 234 BEDS AT THE [facility] Enoxaparin Sodium (Lovenox) 40 mg SUBQ DAILY COUNTS INCLUDE 234 BEDS AT THE [facility] Fluticasone Propionate (Flonase) 2 sprays JEANNE DAILY COUNTS INCLUDE 234 BEDS AT THE [facility] Formoterol Fumarate (Perforomist) 20 mcg INH RTBID AMADO Guaifenesin (Mucinex) 600 mg PO BID COUNTS INCLUDE 234 BEDS AT THE [facility] Piperacillin Sod/Tazobactam 100 mls @ 25 mls/hr IV Q8H AMADO Levalbuterol HCl (Xopenex) 1.25 mg INH RTQ4H PRN Levalbuterol HCl (Xopenex) 1.25 mg INH RTBID AMADO Lorazepam (Ativan) 1 mg PO Q6H PRN Magnesium Oxide (Mag Ox) 400 mg PO BIDWM COUNTS INCLUDE 234 BEDS AT THE [facility] Methylprednisolone Sodium Succinate 60 mg IVP BID AMADO Metoprolol Succinate (Toprol Xl) 50 mg PO DAILY AMADO Morphine Sulfate (Morphine (Carpuject) 2 mg IVP Q2HR PRN Oxymetazoline HCl (Afrin) 2 sprays JEANNE BID COUNTS INCLUDE 234 BEDS AT THE [facility] Patient Own Med ( Mesalamine [ Mesalamine] 4 Gm) 1 each [place] QPM PRN Balsalazide Disodium [Balsalazide Disodium] 750 Mg) 5 each PO DAILY AMADO Balsalazide Disodium [Balsalazide Disodium] 750 Mg) 4 each PO QPM AMADO Sodium Chloride ([place]) 2 sprays JEANNE Q4HR PRN Throat Lozenges (Cepacol) 1 lozenge MM Q2HR PRN Trazodone HCl (Desyrel) 50 mg PO QPM COUNTS INCLUDE 234 BEDS AT THE [facility] HOME meds: ALPRAZolam [Alprazolam] 0.5 - 1 mg PO TID PRN 09/15/19 Atorvastatin Calcium 80 mg PO QPM 09/15/19 Balsalazide Disodium 3,750 mg PO DAILY 09/15/19 Budesonide/Formoterol Fumarate 2 puffs INH BID 09/15/19 Buspirone HCl 20 mg PO TID 09/15/19 Citalopram Hydrobromide [Citalopram HBr] 40 mg PO DAILY 09/15/19 Fluticasone [Flonase] 2 sprays JEANNE DAILY 09/15/19 Hydrocodone/Acetaminophen 5-325 mg] 1 tab PO QID PRN 09/15/19 Ipratropium [Atrovent] 0.2 mg INH QID PRN 09/15/19 Mesalamine 4 gm [place] QPM 09/15/19 Metoprolol Succinate 25 mg PO DAILY 09/15/19 SUMAtriptan 20 mg JEANNE Q24H PRN MDD 40MG 09/15/19 Tiotropium [place] [Spiriva] 1 puffs INH QPM 09/15/19 Trazodone HCl 100 mg PO QPM 09/15/19 lisinopriL [Zestril] 5 mg PO DAILY 09/15/19 Balsalazide Disodium 3,000 mg PO QPM 09/17/19 Objective - Vital Signs/Intake & Output Reviewed Vital Signs: Yes Vital Signs: Vital Signs x48h Temp Pulse Pulse Resp BP Pulse Ox 09/17/19 13:39 36.9 C 100 22 111/59 L 89 L 09/17/19 11:04 90 20 09/17/19 08:00 36.6 C 88 24 128/56 L 96 09/17/19 06:59 91 20 Intake & Output: Intake & Output 09/14/19 09/15/19 09/16/19 09/17/19 23:59 23:59 23:59 23:59 Intake Total 1200 1000 660 Output Total 2800 700 Balance 1200 -1800 -40 - Objective General Appearance: positive: No acute distress, Alert Eyes Bilateral: positive: No lid inflammation ENT: positive: Pharynx nml, No signs of dehydration Neck: positive: Thyroid nml, Trachea midline Respiratory: positive: Chest non-tender, No respiratory distress, Wheezes (intermittent scattered crackles on expiration with intermittent expiratory wheezing) Cardiovascular: positive: Regular rate & rhythm, Tachycardia, Systolic murmur, Decreased pulse(s) Peripheral Pulses: 1+ Radial (R), 1+ Radial (L) Abdomen: positive: Non-tender, Nml bowel sounds, Other (obese) Back: positive: Nml inspection Skin: positive: No rash, Warm, Dry, Other (bronze toned skin, no further cyanosis today) Extremities: positive: Non-tender, Full ROM, Nml appearance, No pedal edema, Joint swelling Neurologic/Psychiatric: positive: Oriented x3, CN's nml (2-12), Motor nml, Sensation nml, Weakness, Depressed mood/affect (flat, not tearful today) Reflexes: Bicep (R): 3+, Bicep (L): 3+ - Lab Results Fish Bones: 09/17/19 06:44 09/17/19 06:44 Other Labs: Lab Results x24hrs 09/17/19 09/17/19 Range/Units 06:44 06:44 WBC 22.6 H (4.8-10.8) x10^3/uL RBC 3.93 L (4.20-5.40) 10^6/uL Hgb 10.5 L (12.0-16.0) g/dL Hct 34.1 L (37.0-47.0) % MCV 86.8 (81.0-99.0) fL MCH 26.7 L (27.0-31.0) pg MCHC 30.8 L (32.0-36.0) g/dL RDW 15.6 H (12.0-15.0) % Plt Count 443 (130-450) 10^3/uL MPV 8.4 (7.9-10.8) fL Neut # (Auto) Not Reportable Lymph # (Auto) Not Reportable [place] # (Auto) Not Reportable Eos # (Auto) Not Reportable Baso # (Auto) Not Reportable Absolute Nucleated RBC Not Reportable Total Counted 100 Band Neuts % (Manual) 0 (0 - 10) % Abnorm Lymph % (Manual) 0 % Nucleated RBC % Not Reportable Neutrophils # (Manual) 20.1 H (1.5-6.6) 10^3/uL Lymphocytes # (Manual) 0.7 L (1.5-3.5) 10^3/uL Monocytes # (Manual) 1.8 H (0.0-1.0) 10^3/uL Eosinophils # (Manual) 0.0 (0-0.7) 10^3/uL Basophils # (Manual) 0.0 (0-0.1) 10^3/uL Differential Comment MANUAL DIFFERENTIAL WBC Morphology NORMAL APPEARANCE (NORMAL) Platelet Estimate NORMAL (130-450,000) (NORMAL) Platelet Morphology NORMAL APPEARANCE (NORMAL) RBC Morph Micro Appear 1+ POLYCHROMASIA (NORMAL) Sodium 135 (135-145) mmol/L Potassium 3.3 L (3.5-5.0) mmol/L Chloride 99 L (101-111) mmol/L Carbon Dioxide 27 (21-32) mmol/L Anion Gap 9.0 (6-13) BUN 18 (6-20) mg/dL Creatinine 0.7 (0.4-1.0) mg/dL Estimated GFR (MDRD) 85 L (>89) Glucose 146 H (70-100) mg/dL Calcium 8.0 L (8.5-10.3) mg/dL Total Bilirubin 0.5 (0.2-1.0) mg/dL AST 32 (10-42) IU/L ALT 17 (10-60) IU/L Alkaline Phosphatase 47 (42-121) IU/L Total Protein 6.4 L (6.7-8.2) g/dL Albumin 3.2 (3.2-5.5) g/dL Globulin 3.2 (2.1-4.2) g/dL Albumin/Globulin Ratio 1.0 (1.0-2.2) ABX Reporting Has patient been on IV antibiotics over the past 48 hours?: Yes Assessment/Plan - Problem List (1) COPD exacerbation Impression: -Known tobacco dependence, now in remission -Known lung cancer (left lung) -Baseline home oxygen -Home inhalers include: Spiriva, Atrovent, Symbicort, and Flonase nasal spray -Presenting symptoms, progressive cough, progressive shortness of breath, air hunger, increased oxygen needs, elevated WBC count, all requiring inpatient stay -CT of chest was not obtained due to increased anxiety, baseline patient claustrophobia -COVID-19 swabs in process, no results today -Influenza A & B are negative -Sputum sample is no growth today -Continues on IV steroids with reduced dosing, IV Zosyn, expectorants, Xopenex nebs, routine respiratory cares -Keep oxygen 88-90%, oxygen order adjusted accordingly -Monitor for improvement Acute respiratory failure with hypoxia -Baseline home oxygen at 4L, now weaned to a regular nasal cannula from high flow this morning, tolerating well -Abnormal ABG, showing alkalosis, compensating, completed on admission -Treating initially for COPD exacerbation with pneumonia -Await influenza and COVID-19 swabs -Patient continues to refuse chest CT to evaluate for pulmonary emboli, progression of lung cancer, and/or pneumonia with her profound claustrophobia -Support respiratory system with nasal cannula, respiratory cares -Monitor for improvement Pneumonia -Progressive and productive cough which first started 2-weeks ago -Now with worsening hypoxia requiring inpatient treatment -No sick contacts per patient on exam -Continues on IV Zosyn, azithromycin, IV steroids, routine Xopenex nebulizers -Monitor for improvement Lung cancer -Patient had a lung biopsy at an unknown time, confirming this, left lung -Predisposing her to a higher risk of DVT/PE, COVID-19 or recurrent pneumonia -Initial chest x-ray is questionable for lung tumor, or acute infiltrate -Baseline home oxygen, ~4L -Patient still refuses chest CT, asking daily with significant other, Khari at the bedside -Continues to wish to be a FULL code despite poor prognosis -They are considering a Palliative care consult, but need time to think about this Ulcerative colitis -Longstanding disease -Immunocompromised as a result of years of therapy -Takes Balsalazide & mesalamine [place] at home, now resumed here -High dose IV steroids were initially given, so ok to have skipped a few doses -No colostomy as a result of this disease -Continue to monitor stools, symptoms and abdominal pain Anxiety disorder -Known history of this, takes alprazolam, buspirone, and trazodone for sleep at home -Continues on lorazepam, morphine for air hunger, and home buspirone -Not tearful today, less frustration, and fear -Monitor for air hunger, or other symptoms
[2019-09-17] MEDS ORDERED: BENZONATATE 100 MG CAPSULE PO PRN (18:44)
[2019-09-17] MEDS: levoFLOXacin 250 MG TABLET PO SCH (19:01)
[2019-09-17] MEDS ORDERED: BALSALAZIDE DISODIUM PO SCH (21:00)
[2019-09-17] MEDS: traZODone 50 MG TABLET PO SCH (21:14)
[2019-09-17] MEDS: ATORVASTATIN 40 MG TABLET PO SCH (21:14)
[2019-09-17] MEDS: BALSALAZIDE DISODIUM 750 MG PO SCH (21:15)
[2019-09-18] MEDS: SODIUM CHLORIDE FLUSH 0.9% 10 ML SYRINGE IVP SCH ×3 (01:34→16:39)
[2019-09-18] MEDS: MORPHINE SOL 10 MG/0.5 ML SYRINGE PO PRN ×6 (01:52→18:47)
[2019-09-18] MEDS: LORazepam 1 MG TABLET PO PRN ×4 (01:53→22:32)
[2019-09-18] MEDS: LEVALBUTEROL 1.25 MG/3 ML NEB INH PRN ×6 (03:13→23:13)
[2019-09-18] MEDS: busPIRone 5 MG TABLET PO SCH ×3 (07:16→21:18)
[2019-09-18] MEDS: BUDESONIDE 0.5 MG/2 ML NEB INH SCH ×2 (07:21→18:07)
[2019-09-18] MEDS: FORMOTEROL FUMARATE NEB 20 MCG/2 ML INH SCH ×2 (07:21→18:07)
[2019-09-18] MEDS ORDERED: LORazepam 2 MG/ML VIAL IVP SCH (09:29)
[2019-09-18 09:37] LABS: BASOPHILS % (AUTO) 0.2 %; EOSINOPHILS # (AUTO) 0.3 10^3/uL (0.0-0.7); EOSINOPHILS % (AUTO) 1.3 %; HGB - HEMOGLOBIN 11.6 g/dL (12.0-16.0); LYMPHOCYTES # (AUTO) 1.4 10^3/uL (1.5-3.5); LYMPHOCYTES % (AUTO) 7.3 %; MEAN CORPUSCULAR HEMOGLOBIN 27.6 pg (27.0-31.0); MEAN CORPUSCULAR HGB CONC 31.4 g/dL (32.0-36.0); MEAN CORPUSCULAR VOLUME 88.1 fL (81.0-99.0); MEAN PLATELET VOLUME 9.5 fL (7.9-10.8); MONOCYTES # (AUTO) 1.2 10^3/uL (0.0-1.0); MONOCYTES % (AUTO) 6.4 %; NEUTROPHILS # (AUTO) 15.7 10^3/uL (1.5-6.6); NEUTROPHILS % (AUTO) 83.9 %; PLT - PLATELET COUNT 503 10^3/uL (130-450); RED CELL DISTRIBUTION WIDTH 15.8 % (12.0-15.0); WHITE BLOOD COUNT 18.7 x10^3/uL (4.8-10.8)
[2019-09-18 09:50] LABS: ALBUMIN 3.5 g/dL (3.2-5.5); ALBUMIN/GLOBULIN RATIO 1.1 (1.0-2.2); BILIRUBIN,TOTAL 0.4 mg/dL (0.2-1.0); CALCIUM 8.2 mg/dL (8.5-10.3); CREATININE 0.7 mg/dL (0.4-1.0); CRP - C-REACTIVE PROTEIN 2.1 mg/dL (0-1.0); TOTAL PROTEIN 6.7 g/dL (6.7-8.2)
[2019-09-18] MEDS: ENOXAPARIN 40 MG/0.4 ML SYRINGE SUBQ SCH (09:58)
[2019-09-18] MEDS: predniSONE 20 MG TABLET PO SCH (09:58)
[2019-09-18] MEDS: MAGNESIUM OXIDE 400 MG TABLET PO SCH ×2 (09:59→16:38)
[2019-09-18] MEDS: CITALOPRAM HYDROBROMIDE 20 MG TABLET PO SCH (09:59)
[2019-09-18] MEDS: ASCORBIC ACID CHEW 500 MG TABLET PO SCH (09:59)
[2019-09-18] MEDS: LOPERAMIDE 2 MG CAPSULE PO PRN (10:00)
[2019-09-18] MEDS: METOPROLOL SUCCINATE 25 MG TABLET PO SCH (10:00)
[2019-09-18] MEDS: levoFLOXacin 250 MG TABLET PO SCH (10:00)
[2019-09-18] MEDS: AZITHROMYCIN 250 MG TABLET PO SCH (10:00)
[2019-09-18] MEDS: CHOLECALCIFEROL 1,000 UNIT TABLET PO SCH (10:00)
[2019-09-18] MEDS: guaiFENesin 600 MG TABLET PO SCH ×2 (10:00→21:18)
[2019-09-18] MEDS: SACCHAROMYCES BOULARDII 250 MG CAPSULE PO SCH (10:00)
[2019-09-18] MEDS: OXYMETAZOLINE HCL 100 SPRAYS BOTTLE NAS SCH ×2 (10:03→21:20)
[2019-09-18] MEDS: FLUTICASONE NASAL SPRAY NAS SCH (10:04)
[2019-09-18 10:29] LABS: PLATELET MORPHOLOGY NORMAL APPEARANCE (NORMAL); RBC MORPHOLOGY (MULTIPLE) 1+ STOMATOCYTES (NORMAL)
[2019-09-18 10:30] LABS: PLATELET ESTIMATE, MANUAL INCREASED (>450,000) (NORMAL)
[2019-09-18] MEDS ORDERED: POTASSIUM CHLORIDE 20 MEQ TABLET PO ONE (12:00)
[2019-09-18] MEDS ORDERED: POTASSIUM CHLORIDE INJ 40 MEQ in SODIUM CHLORIDE 0.9% 500 ML IV ONE (12:00)
[2019-09-18] MEDS: BALSALAZIDE DISODIUM 750 MG PO SCH ×2 (12:20→21:20)
[2019-09-18 14:22] LABS: ABG BASE EXCESS 3.5 mmol/L (-2.0-3.0); ABG HCO3 27.6 mmol/L (22.0-26.0); ABG PCO2 40 mmHg (34-45); ABG PH 7.46 (7.35-7.45); ABG TCO2 28.8 MMOL/L (21.0-29.0); ALLEN TEST POSITIVE
[2019-09-18 14:23] LABS: ABG PO2 52 mmHg (80-100)
[2019-09-18 14:24] LABS: ABG OXYGEN SATURATION 86 % (94-98)
--- NOTE | 2019-09-18 15:51 | PROVIDER PROGRESS NOTE ---
Subjective - Prog Note Date Prog Note Date: 09/18/19 - Subjective Pt reports feeling: Worse Subjective: pt present lots of anxiety. pt has 88% sats on 10 liter of O2 and present mild to moderate respiratory distress. RT report pt vomit out around several ml fresh blood with sputum. discussed with pt's , VETO. he report pt took 4-5 liter of O2 with NC at home and remain 88-92% sat on home. DPOA report pt refused to have chemotherapy or other therapy for her lung cancer since she was diagnosis about 2 yeas ago. The reason is pt declined to have treatment because of "too weak for treatment." pt has chronic vomit with a few cc fresh blood for over a year, " it is no new for my ." DPOA refused pt to have CTA of chest. pt was diagnosis on stage 2 lung cancer with biopsy per DPOA report. DPOA state if pt's conditions continue deteriorate, he think palliative and hospice for pt. he will come back tomorrow to see the progress. DPOA did not pursue further cancer treatment for pt. Current Medications - Current Medications Current Medications: Active Medications Hydrocodone Bitart/Acetaminophen ([place] 5/325) 2 tab PO QID PRN PRN Reason: CANCER PAIN Last Admin: 09/17/19 06:19 Dose: 1 tab Ascorbic Acid (Vitamin C) 500 mg PO DAILY [facility] Last Admin: 09/18/19 09:59 Dose: 500 mg Atorvastatin Calcium (Lipitor) 80 mg PO QPM [facility] Last Admin: 09/17/19 21:14 Dose: 80 mg Azithromycin (Zithromax) 250 mg PO DAILY [facility] Stop: 09/19/19 09:01 Last Admin: 09/18/19 10:00 Dose: 250 mg Benzonatate (Tessalon) 100 mg PO TID PRN PRN Reason: Cough Budesonide (Pulmicort) 0.5 mg INH RTBID [facility] Last Admin: 09/18/19 07:21 Dose: 0.5 mg Buspirone HCl (Buspar) 20 mg PO TID [facility] Last Admin: 09/18/19 14:30 Dose: 20 mg Cholecalciferol (Vitamin D3) 2,000 unit PO DAILY [facility] Last Admin: 09/18/19 10:00 Dose: 2,000 unit Citalopram Hydrobromide (Celexa) 40 mg PO DAILY [facility] Last Admin: 09/18/19 09:59 Dose: 40 mg Enoxaparin Sodium (Lovenox) 40 mg SUBQ DAILY [facility] Last Admin: 09/18/19 09:58 Dose: 40 mg Fluticasone Propionate (Flonase) 2 sprays JEANNE DAILY [facility] Last Admin: 09/18/19 10:04 Dose: 2 spr Formoterol Fumarate (Perforomist) 20 mcg INH RTBID [facility] Last Admin: 09/18/19 07:21 Dose: 20 mcg Guaifenesin (Mucinex) 600 mg PO BID [facility] Last Admin: 09/18/19 10:00 Dose: 600 mg Levalbuterol HCl (Xopenex) 1.25 mg INH RTQ4H PRN PRN Reason: WHEEZING/SHORTNESS OF AIR Last Admin: 09/18/19 14:33 Dose: 1.25 mg Levofloxacin (Levaquin) 500 mg PO DAILY [facility] Last Admin: 09/18/19 10:00 Dose: 500 mg Loperamide HCl (Imodium) 2 mg PO QID PRN PRN Reason: Diarrhea Last Admin: 09/18/19 10:00 Dose: 2 mg Lorazepam (Ativan) 1 mg PO Q6H PRN PRN Reason: Anxiety Last Admin: 09/18/19 10:00 Dose: 1 mg Magnesium Oxide (Mag Ox) 400 mg PO BIDWM [facility] Last Admin: 09/18/19 09:59 Dose: 400 mg Metoprolol Succinate (Toprol Xl) 50 mg PO DAILY [facility] Last Admin: 09/18/19 10:00 Dose: 50 mg Morphine Sulfate (Roxanol) 10 mg PO Q2HR PRN PRN Reason: PAIN Last Admin: 09/18/19 14:30 Dose: 10 mg Oxymetazoline HCl (Afrin) 2 sprays JEANNE BID [facility] Stop: 09/18/19 21:01 Last Admin: 09/18/19 10:03 Dose: 2 sprays Patient Own Med ( Mesalamine [ Mesalamine] 4 Gm) 1 each NE QPM PRN PRN Reason: Abdominal Pain Balsalazide Disodium [Balsalazide Disodium] 750 Mg) 5 each PO DAILY [facility] Last Admin: 09/18/19 12:20 Dose: Not Given Balsalazide Disodium [Balsalazide Disodium] 750 Mg) 4 each PO QPM [facility] Last Admin: 09/17/19 21:15 Dose: 4 each Prednisone (Deltasone) 60 mg PO DAILYWM [facility] Last Admin: 09/18/19 09:58 Dose: 60 mg Saccharomyces Boulardii (Florastor) 250 mg PO DAILYWM [facility] Last Admin: 09/18/19 10:00 Dose: 250 mg Sodium Chloride (Normal Saline Flush 0.9%) 10 ml IVP PRN PRN PRN Reason: NEEDED PER PROVIDER ORDERS Last Admin: 09/16/19 20:33 Dose: 10 ml Sodium Chloride (Normal Saline Flush 0.9%) 10 ml IVP 0100,0900,1700 [facility] Last Admin: 09/18/19 09:59 Dose: 10 ml Sodium Chloride (Summers) 2 sprays JEANNE Q4HR PRN PRN Reason: Nasal Congestion Throat Lozenges (Cepacol) 1 lozenge MM Q2HR PRN PRN Reason: Mouth Sore Pain Trazodone HCl (Desyrel) 50 mg PO QPM [facility] Last Admin: 09/17/19 21:14 Dose: 50 mg ALPRAZolam [Alprazolam] 0.5 - 1 mg PO TID PRN 09/15/19 Atorvastatin Calcium 80 mg PO QPM 09/15/19 Balsalazide Disodium 3,750 mg PO DAILY 09/15/19 Budesonide/Formoterol Fumarate [Symbicort 80-4.5 Mcg Inhaler] 2 puffs INH BID Buspirone HCl 20 mg PO TID 09/15/19 Citalopram Hydrobromide [Citalopram HBr] 40 mg PO DAILY 09/15/19 Fluticasone [Flonase] 2 sprays JEANNE DAILY 09/15/19 Hydrocodone/Acetaminophen [Hydrocodone-Acetamin 5-325 mg] 1 tab PO QID PRN 09/15/19 Ipratropium [Atrovent] 0.2 mg INH QID PRN 09/15/19 Mesalamine 4 gm NE QPM 09/15/19 Metoprolol Succinate 25 mg PO DAILY 09/15/19 SUMAtriptan [Sumatriptan] 20 mg JEANNE Q24H PRN MDD 40MG 09/15/19 Tiotropium [place] [Spiriva] 1 puffs INH QPM 09/15/19 Trazodone HCl 100 mg PO QPM 09/15/19 lisinopriL [Zestril] 5 mg PO DAILY 09/15/19 Balsalazide Disodium 3,000 mg PO QPM 09/17/19 Objective - Vital Signs/Intake & Output Vital Signs: Vital Signs x48h Pulse Resp Pulse Ox 09/18/19 14:35 94 24 09/18/19 10:37 92 24 09/18/19 09:15 88 L Intake & Output: Intake & Output 09/15/19 09/16/19 09/17/19 09/18/19 23:59 23:59 23:59 23:59 Intake Total 1200 1000 1680 540 Output Total 2800 1400 450 Balance 1200 -1800 280 90 - Objective General Appearance: positive: Alert, Mild distress. negative: Lethargic Eyes Bilateral: positive: Normal inspection, PERRL, No lid inflammation ENT: positive: ENT inspection nml, Pharynx nml, No signs of dehydration. negative: Purulent nasal drainage Neck: positive: Nml inspection, Thyroid nml, No JVD, Trachea midline. negative: Thyromegaly, Lymphadenopathy (R), Lymphadenopathy (L), Stiff neck, Tracheal deviation Respiratory: positive: Chest non-tender, Rales, Rhonchi. negative: No respiratory distress, Breath sounds nml, Wheezes Cardiovascular: positive: Regular rate & rhythm, No murmur, No gallop. negative: Irregularly irregular, Extrasystoles, Tachycardia, Bradycardia, JVD present, Systolic murmur, Diastolic murmur Peripheral Pulses: 2+ Radial (R), 2+ Radial (L), 2+ Dorsalis pedis (R), 2+ Dorsalis pedis (L) Abdomen: positive: Non-tender, No organomegaly, Nml bowel sounds, No distention. negative: Tenderness, Guarding, Rebound Back: positive: Nml inspection. negative: CVA tenderness (R), CVA tenderness (L) Skin: positive: Color nml, No rash, Warm, Dry. negative: Cyanosis, Diaphoresis, Pallor Extremities: positive: Non-tender, Full ROM, Nml appearance. negative: Calf tenderness, Kwadwo's sign/cords Neurologic/Psychiatric: positive: Oriented x3, Sensation nml. negative: Weakness, Sensory loss, Facial droop, Slurred/abnml speech, Depressed mood/aff ect - Lab Results Fish Bones: 09/18/19 09:10 09/18/19 09:10 Other Labs: Lab Results x24hrs 09/18/19 09/18/19 09/18/19 Range/Units 14:15 09:10 09:10 WBC (4.8-10.8) x10^3/uL RBC (4.20-5.40) 10^6/uL Hgb (12.0-16.0) g/dL Hct (37.0-47.0) % MCV (81.0-99.0) fL MCH (27.0-31.0) pg MCHC (32.0-36.0) g/dL RDW (12.0-15.0) % Plt Count (130-450) 10^3/uL MPV (7.9-10.8) fL Neut # (Auto) (1.5-6.6) 10^3/uL Lymph # (Auto) (1.5-3.5) 10^3/uL [place] # (Auto) (0.0-1.0) 10^3/uL Eos # (Auto) (0.0-0.7) 10^3/uL Baso # (Auto) (0.0-0.1) 10^3/uL Absolute Nucleated RBC x10^3/uL Nucleated RBC % /100WBC Manual Slide Review WBC Morphology (NORMAL) Platelet Estimate (NORMAL) Platelet Morphology (NORMAL) RBC Morph Micro Appear (NORMAL) Bld Gas Analysis Time 1415 Sample Site LEFT RADIAL ABG pH 7.46 H (7.35-7.45) ABG pCO2 40 (34-45) mmHg ABG pO2 52 L* (80-100) mmHg ABG HCO3 27.6 H (22.0-26.0) mmol/L ABG Total CO2 28.8 (21.0-29.0) MMOL/L ABG O2 Saturation 86 L* (94-98) % ABG Base Excess 3.5 H (-2.0-3.0) mmol/L Ugo Test POSITIVE O2 Delivery Device OXYMIZER O2 Liters/Min 8.00 LPM Sodium 138 (135-145) mmol/L Potassium 2.7 L (3.5-5.0) mmol/L Chloride 100 L (101-111) mmol/L Carbon Dioxide 27 (21-32) mmol/L Anion Gap 11.0 (6-13) BUN 19 (6-20) mg/dL Creatinine 0.7 (0.4-1.0) mg/dL Estimated GFR (MDRD) 85 L (>89) Glucose 110 H (70-100) mg/dL Lactic Acid 1.2 (0.5-2.2) mmol/L Calcium 8.2 L (8.5-10.3) mg/dL Total Bilirubin 0.4 (0.2-1.0) mg/dL AST 32 (10-42) IU/L ALT 23 (10-60) IU/L Alkaline Phosphatase 46 (42-121) IU/L C-Reactive Protein 2.1 H (0-1.0) mg/dL Total Protein 6.7 (6.7-8.2) g/dL Albumin 3.5 (3.2-5.5) g/dL Globulin 3.2 (2.1-4.2) g/dL Albumin/Globulin Ratio 1.1 (1.0-2.2) Stl C. diff Tox B Gene (NEGATIVE) 09/18/19 09/18/19 Range/Units 09:10 03:47 WBC 18.7 H (4.8-10.8) x10^3/uL RBC 4.20 (4.20-5.40) 10^6/uL Hgb 11.6 L (12.0-16.0) g/dL Hct 37.0 (37.0-47.0) % MCV 88.1 (81.0-99.0) fL MCH 27.6 (27.0-31.0) pg MCHC 31.4 L (32.0-36.0) g/dL RDW 15.8 H (12.0-15.0) % Plt Count 503 H (130-450) 10^3/uL MPV 9.5 (7.9-10.8) fL Neut # (Auto) 15.7 H (1.5-6.6) 10^3/uL Lymph # (Auto) 1.4 L (1.5-3.5) 10^3/uL [place] # (Auto) 1.2 H (0.0-1.0) 10^3/uL Eos # (Auto) 0.3 (0.0-0.7) 10^3/uL Baso # (Auto) 0.0 (0.0-0.1) 10^3/uL Absolute Nucleated RBC 0.00 x10^3/uL Nucleated RBC % 0.0 /100WBC Manual Slide Review Indicated WBC Morphology NORMAL APPEARANCE (NORMAL) Platelet Estimate INCREASED (>450,000) (NORMAL) Platelet Morphology NORMAL APPEARANCE (NORMAL) RBC Morph Micro Appear 1+ STOMATOCYTES (NORMAL) Bld Gas Analysis Time Sample Site ABG pH (7.35-7.45) ABG pCO2 (34-45) mmHg ABG pO2 (80-100) mmHg ABG HCO3 (22.0-26.0) mmol/L ABG Total CO2 (21.0-29.0) MMOL/L ABG O2 Saturation (94-98) % ABG Base Excess (-2.0-3.0) mmol/L Ugo Test O2 Delivery Device O2 Liters/Min LPM Sodium (135-145) mmol/L Potassium (3.5-5.0) mmol/L Chloride (101-111) mmol/L Carbon Dioxide (21-32) mmol/L Anion Gap (6-13) BUN (6-20) mg/dL Creatinine (0.4-1.0) mg/dL Estimated GFR (MDRD) (>89) Glucose (70-100) mg/dL Lactic Acid (0.5-2.2) mmol/L Calcium (8.5-10.3) mg/dL Total Bilirubin (0.2-1.0) mg/dL AST (10-42) IU/L ALT (10-60) IU/L Alkaline Phosphatase (42-121) IU/L C-Reactive Protein (0-1.0) mg/dL Total Protein (6.7-8.2) g/dL Albumin (3.2-5.5) g/dL Globulin (2.1-4.2) g/dL Albumin/Globulin Ratio (1.0-2.2) Stl C. diff Tox B Gene NEGATIVE (NEGATIVE) ABX Reporting Has patient been on IV antibiotics over the past 48 hours?: Yes Assessment/Plan - Problem List (1) Acute respiratory failure with hypoxia Impression: pt required 10 liter of O2 on mask to remain 88% sats. pt report has been on sats 88%-92% on home with NC of 4-5 liter of O2. pt has hx of lung cancer but without treatment. pt present multilobar pneumonia with acute COPD exacerbation. Covid 19 was order three days ago. the test result was pending now. ABG is slight better today. continue antibiotics, and steroid continue supplement of O2 Covid 19 was ordered and result is pending will discuss with DPOA for d/c plan on tomorrow. COPD exacerbation pt has hx of cigarette smoking, and COPD, and present respiratory distress. pt was already treated with steroid by colleague for COPD exacerbation. continue PO Prednisone, continue Spiriva, Atrovent, Symbicort, and Flonase nasal spray for d/c, continue albuterol, and Dueneb, and O2 supplement. Pneumonia multilobar pneumonia, continue antibiotics. Covid 19 was ordered and result is pending Lung cancer pt and DPOA refused to have treatment for her lung cancer. today DPOA still declined to have oncologist consult or treatment. DPOA report it was too weak for her to have cancer treatment before, now he still declined to have CTA or oncologist consult Ulcerative colitis pt has hx of Longstanding ulcerative colitis resume home Immunocompromised as a result of years of therapy as Takes Balsalazide & mesalamine NE at home Anxiety disorder Known history of this issue, takes alprazolam, buspirone, and trazodone for sleep at home, Continues on lorazepam, morphine for air hunger, and home buspirone
--- NOTE | 2019-09-18 16:30 | ADVANCE CARE PLANNING NOTE ---
Advance Care Planning - Planning Encounter Date: 09/18/19 Time: 10:30 Purpose: advance care plan for pt Parties in Attendance: pt's DPOA and me Decisional Capacity of the Patient: pt has limited capacity to make her own decision because of her illness. - Diagnosis for Encounter (2) Lung cancer Qualifiers: Laterality: left Lung location: upper lobe of lung Qualified Code(s): C34.12 - Malignant neoplasm of upper lobe, left bronchus or lung - Encounter Subjective/Patient's Story: discussed with pt's , DPOA. he report pt took 4-5 liter of O2 with NC at home and remain 88-92% sat on home. DPOA report pt refused to have chemotherapy or other therapy for her lung cancer since she was diagnosis about 2 yeas ago. The reason is pt declined to have treatment because of "too weak for treatment." pt has chronic vomit with a few cc fresh blood for over a year, " it is no new for my ." DPOA refused pt to have CTA of chest. pt was diagnosis on stage 2 lung cancer with biopsy per DPOA report. DPOA state if pt's conditions continue deteriorate, he think palliative and hospice for pt. he will come back tomorrow to see the progress. DPOA did not pursue further cancer treatment for pt. Objective/Medical Story: pt has lung cancer for two years without any treatment, because pt and her DPOA refused to have treatment. multilobar pneumonia COPD exacerbation chronic colitis extremely anxiety disorder Goals of Care: advance and comfortable care for pt's quality of life Plan: keep code status as full code today, DPOA will come back tomorrow for further discuss and possible for palliative and hospice care if pt's condition deteriorate. Code Status: Attempt Resuscitation Time spent on advance care plannin
[2019-09-18] MEDS: ATORVASTATIN 40 MG TABLET PO SCH (21:18)
[2019-09-18] MEDS: traZODone 50 MG TABLET PO SCH (21:18)
[2019-09-19] MEDS: LOPERAMIDE 2 MG CAPSULE PO PRN ×2 (02:12→08:48)
[2019-09-19] MEDS: SODIUM CHLORIDE FLUSH 0.9% 10 ML SYRINGE IVP SCH ×3 (02:12→17:37)
[2019-09-19] MEDS: MORPHINE SOL 10 MG/0.5 ML SYRINGE PO PRN ×5 (02:13→17:37)
[2019-09-19] MEDS: LEVALBUTEROL 1.25 MG/3 ML NEB INH PRN ×5 (05:14→23:40)
[2019-09-19 05:44] LABS: BASOPHILS % (AUTO) 0.1 %; EOSINOPHILS # (AUTO) 0.3 10^3/uL (0.0-0.7); EOSINOPHILS % (AUTO) 1.9 %; HGB - HEMOGLOBIN 10.7 g/dL (12.0-16.0); LYMPHOCYTES # (AUTO) 1.6 10^3/uL (1.5-3.5); LYMPHOCYTES % (AUTO) 11.5 %; MEAN CORPUSCULAR HEMOGLOBIN 27.3 pg (27.0-31.0); MEAN CORPUSCULAR HGB CONC 30.7 g/dL (32.0-36.0); MEAN CORPUSCULAR VOLUME 88.8 fL (81.0-99.0); MEAN PLATELET VOLUME 8.5 fL (7.9-10.8); MONOCYTES # (AUTO) 1.1 10^3/uL (0.0-1.0); MONOCYTES % (AUTO) 7.8 %; NEUTROPHILS # (AUTO) 11.1 10^3/uL (1.5-6.6); NEUTROPHILS % (AUTO) 77.3 %; PLT - PLATELET COUNT 471 10^3/uL (130-450); RED BLOOD COUNT 3.92 10^6/uL (4.20-5.40); RED CELL DISTRIBUTION WIDTH 15.7 % (12.0-15.0); WHITE BLOOD COUNT 14.3 x10^3/uL (4.8-10.8)
[2019-09-19 05:54] LABS: ALBUMIN 3.3 g/dL (3.2-5.5); BILIRUBIN,TOTAL 0.5 mg/dL (0.2-1.0); CALCIUM 8.5 mg/dL (8.5-10.3); CREATININE 0.5 mg/dL (0.4-1.0); CRP - C-REACTIVE PROTEIN 8.3 mg/dL (0-1.0); TOTAL PROTEIN 6.5 g/dL (6.7-8.2)
[2019-09-19] MEDS: busPIRone 5 MG TABLET PO SCH ×3 (07:07→21:09)
[2019-09-19] MEDS: LORazepam 1 MG TABLET PO PRN ×3 (07:08→21:09)
[2019-09-19] MEDS: BUDESONIDE 0.5 MG/2 ML NEB INH SCH ×2 (07:31→19:28)
[2019-09-19] MEDS: FORMOTEROL FUMARATE NEB 20 MCG/2 ML INH SCH ×2 (07:31→19:28)
[2019-09-19] MEDS: SACCHAROMYCES BOULARDII 250 MG CAPSULE PO SCH (08:47)
[2019-09-19] MEDS: ENOXAPARIN 40 MG/0.4 ML SYRINGE SUBQ SCH (08:47)
[2019-09-19] MEDS: AZITHROMYCIN 250 MG TABLET PO SCH (08:47)
[2019-09-19] MEDS: ASCORBIC ACID CHEW 500 MG TABLET PO SCH (08:47)
[2019-09-19] MEDS: CITALOPRAM HYDROBROMIDE 20 MG TABLET PO SCH (08:47)
[2019-09-19] MEDS: levoFLOXacin 250 MG TABLET PO SCH (08:47)
[2019-09-19] MEDS: guaiFENesin 600 MG TABLET PO SCH ×2 (08:47→21:09)
[2019-09-19] MEDS: CHOLECALCIFEROL 1,000 UNIT TABLET PO SCH (08:47)
[2019-09-19] MEDS: predniSONE 20 MG TABLET PO SCH (08:48)
[2019-09-19] MEDS: METOPROLOL SUCCINATE 25 MG TABLET PO SCH (08:48)
[2019-09-19] MEDS: MAGNESIUM OXIDE 400 MG TABLET PO SCH ×2 (08:48→17:36)
[2019-09-19] MEDS: BALSALAZIDE DISODIUM 750 MG PO SCH ×2 (08:49→21:11)
[2019-09-19] MEDS: FLUTICASONE NASAL SPRAY NAS SCH (08:50)
[2019-09-19] MEDS ORDERED: FUROSEMIDE 20 MG TABLET PO ONE (11:00)
[2019-09-19] MEDS: HYDROcod/ACETAM 5/325 MG TABLET PO PRN (16:31)
--- NOTE | 2019-09-19 18:31 | PROVIDER PROGRESS NOTE ---
Assessment/Plan - Problem List (1) Acute respiratory failure with hypoxia Assessment/Plan: 09/18 still present significant respiratory distress, and easy drop her sats especially when she has on anxiety, and significant SOB on exertion, and difficult to go to bathroom, but improved when she is at rest she feel comfortable. Covid 19 test is negative continue antibiotics, and steroid continue supplement of O2 discuss with pt's DOPA for care and d/c plan pt required 10 liter of O2 on mask to remain 88% sats. pt report has been on sats 88%-92% on home with NC of 4-5 liter of O2. pt has hx of lung cancer but without treatment. pt present multilobar pneumonia with acute COPD exacerbation. Covid 19 was order three days ago. the test result was pending now. ABG is slight better today. continue antibiotics, and steroid continue supplement of O2 Covid 19 was ordered and result is pending will discuss with DPOA for d/c plan on tomorrow. Anxiety disorder 09/18 Known history of this issue, takes alprazolam, buspirone, and trazodone for sleep at home, Continues on lorazepam, morphine for air hunger, and home buspirone ativan and morphine PRN COPD exacerbation 09/18 continue breath treatment, and supplement of O2 as needed pt has hx of cigarette smoking, and COPD, and present respiratory distress. pt was already treated with steroid by colleague for COPD exacerbation. continue PO Prednisone, continue Spiriva, Atrovent, Symbicort, and Flonase nasal spray for d/c, continue albuterol, and Dueneb, and O2 supplement. Pneumonia multilobar pneumonia, continue antibiotics. Covid 19 was ordered and result is pending Lung cancer pt and DPOA refused to have treatment for her lung cancer. today DPOA still declined to have oncologist consult or treatment. DPOA report it was too weak for her to have cancer treatment before, now he still declined to have CTA or oncologist consult Ulcerative colitis pt has hx of Longstanding ulcerative colitis resume home Immunocompromised as a result of years of therapy as Takes Balsalazide & mesalamine IA at home (2) Lung cancer Qualifiers: Laterality: left Lung location: upper lobe of lung Qualified Code(s): C34.12 - Malignant neoplasm of upper lobe, left bronchus or lung - Current Meds Current Meds: Current Medications Generic Name Dose Route Start Last Admin Trade Name Freq PRN Reason Stop Dose Admin Hydrocodone Bitart/Acetaminophen 2 tab 09/16/19 17:54 09/19/19 16:31 [place] 5/325 PO 1 tab QID PRN Administration CANCER PAIN Ascorbic Acid 500 mg 09/17/19 09:00 09/19/19 08:47 Vitamin C PO 500 mg DAILY AMADO Administration Atorvastatin Calcium 80 mg 09/16/19 21:00 09/18/19 21:18 Lipitor PO 80 mg QPM AMADO Administration Budesonide 0.5 mg 09/15/19 19:00 09/19/19 07:31 Pulmicort INH 0.5 mg RTBID AMADO Administration Buspirone HCl 20 mg 09/15/19 22:00 09/19/19 13:42 Buspar PO 20 mg TID AMADO Administration Cholecalciferol 2,000 unit 09/17/19 09:00 09/19/19 08:47 Vitamin D3 PO 2,000 unit DAILY AMADO Administration Citalopram Hydrobromide 40 mg 09/16/19 09:00 09/19/19 08:47 Celexa PO 40 mg DAILY AMADO Administration Enoxaparin Sodium 40 mg 09/15/19 13:00 09/19/19 08:47 Lovenox SUBQ 40 mg DAILY AMADO Administration Fluticasone Propionate 2 sprays 09/18/19 09:00 09/19/19 08:50 Flonase JEANNE 2 spr DAILY AMADO Administration Formoterol Fumarate 20 mcg 09/15/19 19:00 09/19/19 07:31 Perforomist INH 20 mcg RTBID AMADO Administration Guaifenesin 600 mg 09/15/19 21:00 09/19/19 08:47 Mucinex PO 600 mg BID AMADO Administration Levalbuterol HCl 1.25 mg 09/15/19 12:30 09/19/19 11:16 Xopenex INH 1.25 mg RTQ4H PRN Administration WHEEZING/SHORTNESS OF AIR Levofloxacin 500 mg 09/17/19 18:44 09/19/19 08:47 Levaquin PO 500 mg DAILY AMADO Administration Loperamide HCl 2 mg 09/18/19 07:00 09/19/19 08:48 Imodium PO 2 mg QID PRN Administration Diarrhea Lorazepam 1 mg 09/15/19 12:33 09/19/19 13:42 Ativan PO 1 mg Q6H PRN Administration Anxiety Magnesium Oxide 400 mg 09/16/19 09:01 09/19/19 17:36 Mag Ox PO 400 mg BIDWM AMADO Administration Metoprolol Succinate 50 mg 09/17/19 09:00 09/19/19 08:48 Toprol Xl PO 50 mg DAILY AMADO Administration Morphine Sulfate 10 mg 09/17/19 18:42 09/19/19 17:37 Roxanol PO 10 mg Q2HR PRN Administration PAIN Balsalazide Disodium 5 each 09/18/19 13:00 09/19/19 08:49 [Balsalazide PO Not Given Disodium] 750 Mg) DAILY AMADO Balsalazide Disodium 4 each 09/17/19 21:00 09/18/19 21:20 [Balsalazide PO Not Given Disodium] 750 Mg) QPM AMADO Prednisone 60 mg 09/18/19 08:00 09/19/19 08:48 Deltasone PO 60 mg DAILYWM AMADO Administration Saccharomyces Boulardii 250 mg 09/18/19 08:00 09/19/19 08:47 Florastor PO 250 mg DAILYWM AMADO Administration Sodium Chloride 10 ml 09/15/19 11:27 09/16/19 20:33 Normal Saline Flush 0.9% IVP 10 ml PRN PRN Administration NEEDED PER PROVIDER ORDERS Sodium Chloride 10 ml 09/15/19 17:00 09/19/19 17:37 Normal Saline Flush 0.9% IVP 10 ml 0100,0900,1700 AMADO Administration Trazodone HCl 50 mg 09/15/19 21:00 09/18/19 21:18 Desyrel PO 50 mg QPM AMADO Administration - Lab Result Fish Bone Diagrams: 09/19/19 04:50 09/19/19 04:50 - Additional Planning My Orders: My Active Orders 09/20/19 05:00 CBC - COMP BLD CT W/AUTO DIFF [HEME] DAILYLAB CMP [COMPREHENSIVE METABOLIC PANEL] [CHEM] DAILYLAB CRP - C-REACTIVE PROTEIN [CHEM] DAILYLAB 09/21/19 05:00 CBC - COMP BLD CT W/AUTO DIFF [HEME] DAILYLAB CMP [COMPREHENSIVE METABOLIC PANEL] [CHEM] DAILYLAB CRP - C-REACTIVE PROTEIN [CHEM] DAILYLAB 09/22/19 05:00 CBC - COMP BLD CT W/AUTO DIFF [HEME] DAILYLAB CMP [COMPREHENSIVE METABOLIC PANEL] [CHEM] DAILYLAB CRP - C-REACTIVE PROTEIN [CHEM] DAILYLAB Subjective - Subjective Patient Reports: Resting Comfortably Objective Vital Signs: Vital Signs - 24 hr 09/18/19 09/18/19 09/19/19 19:00 23:10 00:00 Temperature 36.8 C Heart Rate 94 Heart Rate [ 93 Brachial] Respiratory 22 18 Rate Blood Pressure 124/65 [Left Brachial artery] Blood Pressure [Right Brachial artery] O2 Saturation 90 L 92 09/19/19 09/19/19 09/19/19 05:14 07:12 07:14 Temperature 36.8 C Heart Rate 86 Heart Rate [ 101 H Brachial] Respiratory 22 24 Rate Blood Pressure [Left Brachial artery] Blood Pressure 141/68 H [Right Brachial artery] O2 Saturation 85 L 90 L 09/19/19 09/19/19 09/19/19 07:33 11:21 11:29 Temperature 37.3 C Heart Rate 94 91 Heart Rate [ 99 Brachial] Respiratory 20 28 H 20 Rate Blood Pressure [Left Brachial artery] Blood Pressure 144/77 H [Right Brachial artery] O2 Saturation 88 L 09/19/19 16:00 Temperature 36.8 C Heart Rate Heart Rate [ 99 Brachial] Respiratory 20 Rate Blood Pressure [Left Brachial artery] Blood Pressure 126/74 [Right Brachial artery] O2 Saturation 91 L Oxygen O2 Source Oxymizer Oxygen Flow Rate 8 I&O (Last 24 Hrs): Intake and Output Totals x24h 09/17/19 09/18/19 09/19/19 23:59 23:59 23:59 Intake Total 1680 1680 900 Output Total 1400 1250 400 Balance 280 430 500 General: Alert, Moderate distress HEENT: Atraumatic Neck: Supple Lymphatic: no adenopathy Neuro: Alert, Non Focal, Oriented Times 3 Cardiovascular: Regular rate, Normal S1, Normal S2 Respiratory: Chest non-tender, Rales, Rhonchi Abdomen: Normal bowel sounds, Soft, No tenderness - Results Results: Laboratory Results WBC 14.3 x10^3/uL (4.8-10.8) H 09/19/19 04:50 RBC 3.92 10^6/uL (4.20-5.40) L 09/19/19 04:50 Hgb 10.7 g/dL (12.0-16.0) L 09/19/19 04:50 Hct 34.8 % (37.0-47.0) L 09/19/19 04:50 MCV 88.8 fL (81.0-99.0) 09/19/19 04:50 MCH 27.3 pg (27.0-31.0) 09/19/19 04:50 MCHC 30.7 g/dL (32.0-36.0) L 09/19/19 04:50 RDW 15.7 % (12.0-15.0) H 09/19/19 04:50 Plt Count 471 10^3/uL (130-450) H 09/19/19 04:50 MPV 8.5 fL (7.9-10.8) 09/19/19 04:50 Neut # (Auto) 11.1 10^3/uL (1.5-6.6) H 09/19/19 04:50 Lymph # (Auto) 1.6 10^3/uL (1.5-3.5) 09/19/19 04:50 Stoddard # (Auto) 1.1 10^3/uL (0.0-1.0) H 09/19/19 04:50 Eos # (Auto) 0.3 10^3/uL (0.0-0.7) 09/19/19 04:50 Baso # (Auto) 0.0 10^3/uL (0.0-0.1) 09/19/19 04:50 Absolute Nucleated RBC 0.02 x10^3/uL 09/19/19 04:50 Total Counted 100 09/17/19 06:44 Band Neuts % (Manual) 0 % (0-10) 09/17/19 06:44 Abnorm Lymph % (Manual) 0 % 09/17/19 06:44 Nucleated RBC % 0.1 /100WBC 09/19/19 04:50 Neutrophils # (Manual) 20.1 10^3/uL (1.5-6.6) H 09/17/19 06:44 Lymphocytes # (Manual) 0.7 10^3/uL (1.5-3.5) L 09/17/19 06:44 Monocytes # (Manual) 1.8 10^3/uL (0.0-1.0) H 09/17/19 06:44 Eosinophils # (Manual) 0.0 10^3/uL (0-0.7) 09/17/19 06:44 Basophils # (Manual) 0.0 10^3/uL (0-0.1) 09/17/19 06:44 Differential Comment MANUAL DIFFERENTIAL 09/17/19 06:44 Manual Slide Review Indicated 09/18/19 09:10 WBC Morphology NORMAL APPEARANCE (NORMAL) 09/18/19 09:10 Platelet Estimate INCREASED (>450,000) (NORMAL) 09/18/19 09:10 Platelet Morphology NORMAL APPEARANCE (NORMAL) 09/18/19 09:10 RBC Morph Micro Appear 1+ STOMATOCYTES (NORMAL) 09/18/19 09:10 D-Dimer > 1050.0 ng/mL (200.0-255.0) H 09/15/19 10:00 Bld Gas Analysis Time 1415 09/18/19 14:15 Sample Site LEFT RADIAL 09/18/19 14:15 ABG pH 7.46 (7.35-7.45) H 09/18/19 14:15 ABG pCO2 40 mmHg (34-45) 09/18/19 14:15 ABG pO2 52 mmHg (80-100) L* 09/18/19 14:15 ABG HCO3 27.6 mmol/L (22.0-26.0) H 09/18/19 14:15 ABG Total CO2 28.8 MMOL/L (21.0-29.0) 09/18/19 14:15 ABG O2 Saturation 86 % (94-98) L* 09/18/19 14:15 ABG Base Excess 3.5 mmol/L (-2.0-3.0) H 09/18/19 14:15 Ugo Test POSITIVE 09/18/19 14:15 O2 Delivery Device OXYMIZER 09/18/19 14:15 O2 Liters/Min 8.00 LPM 09/18/19 14:15 Sodium 139 mmol/L (135-145) 09/19/19 04:50 Potassium 3.8 mmol/L (3.5-5.0) 09/19/19 04:50 Chloride 102 mmol/L (101-111) 09/19/19 04:50 Carbon Dioxide 29 mmol/L (21-32) 09/19/19 04:50 Anion Gap 8.0 (6-13) 09/19/19 04:50 BUN 16 mg/dL (6-20) 09/19/19 04:50 Creatinine 0.5 mg/dL (0.4-1.0) 09/19/19 04:50 Estimated GFR (MDRD) 125 (>89) 09/19/19 04:50 Glucose 107 mg/dL (70-100) H 09/19/19 04:50 Lactic Acid 1.2 mmol/L (0.5-2.2) 09/18/19 09:10 Calcium 8.5 mg/dL (8.5-10.3) 09/19/19 04:50 Phosphorus 3.3 mg/dL (2.5-4.6) 09/16/19 05:05 Magnesium 2.3 mg/dL (1.7-2.8) 09/16/19 05:05 Total Bilirubin 0.5 mg/dL (0.2-1.0) 09/19/19 04:50 AST 28 IU/L (10-42) 09/19/19 04:50 ALT 21 IU/L (10-60) 09/19/19 04:50 Alkaline Phosphatase 46 IU/L (42-121) 09/19/19 04:50 Troponin I High Sens 4.2 ng/L (2.3-14.8) 09/15/19 10:00 C-Reactive Protein 8.3 mg/dL (0-1.0) H 09/19/19 04:50 B-Natriuretic Peptide 186 pg/mL (5-100) H 09/16/19 05:05 Total Protein 6.5 g/dL (6.7-8.2) L 09/19/19 04:50 Albumin 3.3 g/dL (3.2-5.5) 09/19/19 04:50 Globulin 3.2 g/dL (2.1-4.2) 09/19/19 04:50 Albumin/Globulin Ratio 1.0 (1.0-2.2) 09/19/19 04:50 Lipase 20 U/L (22-51) L 09/15/19 10:00 Stl C. diff Tox B Gene NEGATIVE (NEGATIVE) 09/18/19 03:47 Influenza A (Rapid) Negative (Negative) 09/15/19 17:55 Influenza B (Rapid) Negative (Negative) 09/15/19 17:55 Ref Lab Test Result REPORT 09/15/19 11:17 ABX Reporting Has patient been on IV antibiotics over the past 48 hours?: Yes Current Medications - Current Medications Current Medications: Active Medications Hydrocodone Bitart/Acetaminophen ([place] 5/325) 2 tab PO QID PRN PRN Reason: CANCER PAIN Last Admin: 09/19/19 16:31 Dose: 1 tab Ascorbic Acid (Vitamin C) 500 mg PO DAILY [facility] Last Admin: 09/19/19 08:47 Dose: 500 mg Atorvastatin Calcium (Lipitor) 80 mg PO QPM [facility] Last Admin: 09/18/19 21:18 Dose: 80 mg Benzonatate (Tessalon) 100 mg PO TID PRN PRN Reason: Cough Budesonide (Pulmicort) 0.5 mg INH RTBID [facility] Last Admin: 09/19/19 07:31 Dose: 0.5 mg Buspirone HCl (Buspar) 20 mg PO TID [facility] Last Admin: 09/19/19 13:42 Dose: 20 mg Cholecalciferol (Vitamin D3) 2,000 unit PO DAILY [facility] Last Admin: 09/19/19 08:47 Dose: 2,000 unit Citalopram Hydrobromide (Celexa) 40 mg PO DAILY [facility] Last Admin: 09/19/19 08:47 Dose: 40 mg Enoxaparin Sodium (Lovenox) 40 mg SUBQ DAILY [facility] Last Admin: 09/19/19 08:47 Dose: 40 mg Fluticasone Propionate (Flonase) 2 sprays JEANNE DAILY [facility] Last Admin: 09/19/19 08:50 Dose: 2 spr Formoterol Fumarate (Perforomist) 20 mcg INH RTBID [facility] Last Admin: 09/19/19 07:31 Dose: 20 mcg Guaifenesin (Mucinex) 600 mg PO BID [facility] Last Admin: 09/19/19 08:47 Dose: 600 mg Levalbuterol HCl (Xopenex) 1.25 mg INH RTQ4H PRN PRN Reason: WHEEZING/SHORTNESS OF AIR Last Admin: 09/19/19 11:16 Dose: 1.25 mg Levofloxacin (Levaquin) 500 mg PO DAILY [facility] Last Admin: 09/19/19 08:47 Dose: 500 mg Loperamide HCl (Imodium) 2 mg PO QID PRN PRN Reason: Diarrhea Last Admin: 09/19/19 08:48 Dose: 2 mg Lorazepam (Ativan) 1 mg PO Q6H PRN PRN Reason: Anxiety Last Admin: 09/19/19 13:42 Dose: 1 mg Magnesium Oxide (Mag Ox) 400 mg PO BIDWM [facility] Last Admin: 09/19/19 17:36 Dose: 400 mg Metoprolol Succinate (Toprol Xl) 50 mg PO DAILY [facility] Last Admin: 09/19/19 08:48 Dose: 50 mg Morphine Sulfate (Roxanol) 10 mg PO Q2HR PRN PRN Reason: PAIN Last Admin: 09/19/19 17:37 Dose: 10 mg Patient Own Med ( Mesalamine [ Mesalamine] 4 Gm) 1 each IA QPM PRN PRN Reason: Abdominal Pain Balsalazide Disodium [Balsalazide Disodium] 750 Mg) 5 each PO DAILY [facility] Last Admin: 09/19/19 08:49 Dose: Not Given Balsalazide Disodium [Balsalazide Disodium] 750 Mg) 4 each PO QPM [facility] Last Admin: 09/18/19 21:20 Dose: Not Given Prednisone (Deltasone) 60 mg PO DAILYWM [facility] Last Admin: 09/19/19 08:48 Dose: 60 mg Saccharomyces Boulardii (Florastor) 250 mg PO DAILYWM [facility] Last Admin: 09/19/19 08:47 Dose: 250 mg Sodium Chloride (Normal Saline Flush 0.9%) 10 ml IVP PRN PRN PRN Reason: NEEDED PER PROVIDER ORDERS Last Admin: 09/16/19 20:33 Dose: 10 ml Sodium Chloride (Normal Saline Flush 0.9%) 10 ml IVP 0100,0900,1700 [facility] Last Admin: 09/19/19 17:37 Dose: 10 ml Sodium Chloride (Kimball) 2 sprays JEANNE Q4HR PRN PRN Reason: Nasal Congestion Throat Lozenges (Cepacol) 1 lozenge MM Q2HR PRN PRN Reason: Mouth Sore Pain Trazodone HCl (Desyrel) 50 mg PO QPM [facility] Last Admin: 09/18/19 21:18 Dose: 50 mg ALPRAZolam [Alprazolam] 0.5 - 1 mg PO TID PRN 09/15/19 Atorvastatin Calcium 80 mg PO QPM 09/15/19 Balsalazide Disodium 3,750 mg PO DAILY 09/15/19 Budesonide/Formoterol Fumarate [Symbicort 80-4.5 Mcg Inhaler] 2 puffs INH BID 09/15/19 Buspirone HCl 20 mg PO TID 09/15/19 Citalopram Hydrobromide [Citalopram HBr] 40 mg PO DAILY 09/15/19 Fluticasone [Flonase] 2 sprays JEANNE DAILY 09/15/19 Hydrocodone/Acetaminophen [Hydrocodone-Acetamin 5-325 mg] 1 tab PO QID PRN 09/15/19 Ipratropium [Atrovent] 0.2 mg INH QID PRN 09/15/19 Mesalamine 4 gm IA QPM 09/15/19 Metoprolol Succinate 25 mg PO DAILY 09/15/19 SUMAtriptan [Sumatriptan] 20 mg JEANNE Q24H PRN MDD 40MG 09/15/19 Tiotropium Banner [Spiriva] 1 puffs INH QPM 09/15/19 Trazodone HCl 100 mg PO QPM 09/15/19 lisinopriL [Zestril] 5 mg PO DAILY 09/15/19 Balsalazide Disodium 3,000 mg PO QPM 09/17/19
[2019-09-19] MEDS: traZODone 50 MG TABLET PO SCH (21:09)
[2019-09-19] MEDS: ATORVASTATIN 40 MG TABLET PO SCH (21:09)
[2019-09-19] MEDS: OXYMETAZOLINE HCL 100 SPRAYS BOTTLE NAS SCH (21:11)
[2019-09-20] MEDS: SODIUM CHLORIDE FLUSH 0.9% 10 ML SYRINGE IVP SCH ×2 (04:08→09:19)
[2019-09-20] MEDS: MORPHINE SOL 10 MG/0.5 ML SYRINGE PO PRN ×2 (05:09→09:15)
[2019-09-20] MEDS: LORazepam 1 MG TABLET PO PRN (05:10)
[2019-09-20] MEDS: LEVALBUTEROL 1.25 MG/3 ML NEB INH PRN (05:29)
[2019-09-20 05:46] LABS: BASOPHILS % (AUTO) 0.2 %; EOSINOPHILS # (AUTO) 0.5 10^3/uL (0.0-0.7); EOSINOPHILS % (AUTO) 3.8 %; HGB - HEMOGLOBIN 10.3 g/dL (12.0-16.0); LYMPHOCYTES # (AUTO) 1.9 10^3/uL (1.5-3.5); LYMPHOCYTES % (AUTO) 14.5 %; MEAN CORPUSCULAR HEMOGLOBIN 26.5 pg (27.0-31.0); MEAN CORPUSCULAR VOLUME 88.2 fL (81.0-99.0); MEAN PLATELET VOLUME 8.8 fL (7.9-10.8); MONOCYTES # (AUTO) 1.1 10^3/uL (0.0-1.0); MONOCYTES % (AUTO) 8.7 %; NEUTROPHILS # (AUTO) 9.3 10^3/uL (1.5-6.6); NEUTROPHILS % (AUTO) 70.9 %; PLT - PLATELET COUNT 456 10^3/uL (130-450); RED BLOOD COUNT 3.89 10^6/uL (4.20-5.40); RED CELL DISTRIBUTION WIDTH 15.5 % (12.0-15.0)
[2019-09-20 05:58] LABS: ALBUMIN 3.1 g/dL (3.2-5.5); ALBUMIN/GLOBULIN RATIO 1.1 (1.0-2.2); BILIRUBIN,TOTAL 0.7 mg/dL (0.2-1.0); CALCIUM 8.4 mg/dL (8.5-10.3); CREATININE 0.7 mg/dL (0.4-1.0); CRP - C-REACTIVE PROTEIN 4.7 mg/dL (0-1.0)
[2019-09-20] MEDS: busPIRone 5 MG TABLET PO SCH (06:55)
[2019-09-20 08:21] VITALS: BP 128/77
[2019-09-20] MEDS: BUDESONIDE 0.5 MG/2 ML NEB INH SCH (08:26)
[2019-09-20] MEDS: FORMOTEROL FUMARATE NEB 20 MCG/2 ML INH SCH (08:26)
[2019-09-20] MEDS: SACCHAROMYCES BOULARDII 250 MG CAPSULE PO SCH (09:17)
[2019-09-20] MEDS: ASCORBIC ACID CHEW 500 MG TABLET PO SCH ×2 (09:17→09:23)
[2019-09-20] MEDS: guaiFENesin 600 MG TABLET PO SCH (09:17)
[2019-09-20] MEDS: levoFLOXacin 250 MG TABLET PO SCH (09:17)
[2019-09-20] MEDS: predniSONE 20 MG TABLET PO SCH (09:17)
[2019-09-20] MEDS: MAGNESIUM OXIDE 400 MG TABLET PO SCH (09:17)
[2019-09-20] MEDS: CHOLECALCIFEROL 1,000 UNIT TABLET PO SCH (09:18)
[2019-09-20] MEDS: CITALOPRAM HYDROBROMIDE 20 MG TABLET PO SCH (09:18)
[2019-09-20] MEDS: FLUTICASONE NASAL SPRAY NAS SCH (09:18)
[2019-09-20] MEDS: ENOXAPARIN 40 MG/0.4 ML SYRINGE SUBQ SCH (09:19)
[2019-09-20] MEDS: BALSALAZIDE DISODIUM 750 MG PO SCH (09:19)
[2019-09-20] MEDS: METOPROLOL SUCCINATE 25 MG TABLET PO SCH (09:20)
--- NOTE | 2019-09-20 10:08 | Discharge Plan ---
Discharge Plan Problem Reviewed?: Yes Disposition: Home, Self Care Condition: Poor Prescriptions: levoFLOXacin [Levaquin] 500 mg PO DAILY #7 tablet LORazepam [Ativan] 1 mg PO Q8H PRN #15 tablet PRN Reason: Anxiety predniSONE [Deltasone] 20 mg PO [id number] #21 tab Diet: Regular Activity Restrictions: Activity as Tolerated Shower Restrictions: No (fall precaution) Instruction Topics: Levofloxacin tablets, Lorazepam tablets, Prednisone tablets Health Concerns: COPD, pneumonia, anxiety, lung cancer Plan of Treatment: your pulmonary function status is returned to your baseline and stable, and without acute distress. pt are prescribed short term of steroid, and you can continue your home meds regimens. you are also prescribed anti-anxiety meds. antibiotics Levaquin is prescribed for your finishing of treatment course for pneumonia. advise you followup oncologist as out-pt. Care Goals: stabilization and improvement of your medical conditions Assessment: discussed with you for the care plan, you understood. Additional Instructions or Follow Up instructions: You may followup your PCP in one week, followup your stay cutter and oncologist as out-pt. Should your symptoms return or worsen, you may present ER or call 911 for help No Smoking: If you smoke, Please STOP! Call for help.
--- NOTE | 2019-09-20 10:26 | DISCHARGE SUMMARY ---
Discharge Summary Admit Date: 09/15/19 Discharge Date: 09/20/19 Discharging Provider: Zachary Abdul Condition at Discharge: Poor Discharge Disposition: 01 Home, Self Care Discharge Facility Name: home - DIAGNOSES Admission Diagnoses: (1) COPD exacerbation Acute respiratory failure with hypoxia Pneumonia Lung cancer Anxiety disorder Discharge Diagnoses with Status of Each Condition: (1) Acute respiratory failure with hypoxia resolved as pt's baseline. pt has 91% sats on 6 liter of O2 as her's sats status with O2 supplement on her home. pt report she feel comfortable without respiratory distress. pt clinic did not show respiratory distress. pt request to be d/c to home as soon as possible, the same as her request. pt is prescribed Morphine PRN. pt report to RT she had enough O2 tank at her home at the time when pt was d/c Anxiety disorder chronic. pt is prescribed Ativan PRN COPD exacerbation controlled/chronic. pt is prescribed Prednisone for short term and wane off. pt is prescribed O2 tank for her O2 need: 6 liter of O2 by [place] to remain her 91% sats . Pneumonia controlled. pt is prescribed antibiotics Levaquin to finish the treatment course Lung cancer for two years without treatment. pt refused to have treatment, and refused to image study CTA of chest. advise pt followup oncologist as out-pt Ulcerative colitis stable, Covid 19 test is negative, pt and her were notified the test result - [facility] History of Present Illness: refer from Ms. Broderick's HPI on 09/15/2019 Eve Mcmanus is an ill appearing 63-year old white female with a past medical history of hypertension, myocardial infarction, CAD, migraines, GERD, ulcerative colitis, COPD on home oxygen, tobacco dependence in remission, known lung cancer, and anxiety. She was brought into the ED by her significant other with a 2 week history of a progressive cough, increased shortness of breath, non-pr oductive cough, and increased oxygen needs from 4L nasal cannula at home to 6L without improvement. Imaging of a chest x-ray while in the ED showed left mid to lower lung, right consolidation, which may represent multi-lobar pneumonia. Labs show an elevated WBC count of 17, sodium 134, d-dimer 1050, glucose 123, and an ABG with an elevated pH of 7.46, pO1 47, O2 saturation 85. The patient was anxi ous on exam and could express her wishes of full resuscitation in the event she requires temporary respiratory support, BiPAP if needed. She was swabbed for COVID-19 while in the ED, and was placed on a high flow nasal cannula with droplet precautions once arriving to the nursing unit. She has been admitted for inpatient care for COPD exacerbation, pneumonia, and evaluation via CT for pulmonary emboli. - HOSPITAL COURSE Hospital Course: pt was admitted for shortness of breath and cough. pt was found to have pneumonia and COPD exacerbation. pt has hx of significant anxiety, hx of lung cancer and pt refused to be treated. pt had Covid 19 test which was negative. after pt was given antibiotics, steroid, anti-anxiety, supplement of O2 as ne eded, pt was improved to her baseline without acute distress. pt was happy and request to be d/c to home. The detail hospital course is as the below: (1) Acute respiratory failure with hypoxia resolved as pt's baseline. pt has 91% sats on 6 liter of O2 as her's sats status with O2 supplement on her home. pt report she feel comfortable without respiratory distress. pt clinic did not show respiratory distress. pt request to be d/c to home as soon as possible, the same as her request. pt is prescribed Morphine PRN. pt report to RT she had enough O2 tank at her home at the time when pt was d/c Anxiety disorder chronic. pt is prescribed Ativan PRN COPD exacerbation controlled/chronic. pt is prescribed Prednisone for short term and wane off. pt is prescribed O2 tank for her O2 need: 6 liter of O2 by [place] to remain her 91% sats . Pneumonia controlled. pt is prescribed antibiotics Levaquin to finish the treatment course Lung cancer for two years without treatment. pt refused to have treatment, and refused to image study CTA of chest. advise pt followup oncologist as out-pt Ulcerative colitis stable, Covid 19 test is negative, pt and her were notified the test result - ALLERGIES Allergies/Adverse Reactions: Allergies Allergy/AdvReac Type Severity Reaction Status Date / Time No Known Drug Allergies Allergy Verified 09/15/19 08:21 - MEDICATIONS Home Medications: Ambulatory Orders Medication Instructions Recorded Confirmed Atorvastatin Calcium 80 mg PO QPM 09/15/19 09/15/19 Balsalazide Disodium 3,750 mg PO DAILY 09/15/19 09/17/19 Budesonide/Formoterol Fumarate 2 puffs INH BID 09/15/19 09/15/19 [Symbicort 80-4.5 Mcg Inhaler] Buspirone HCl 20 mg PO TID 09/15/19 09/15/19 Citalopram Hydrobromide 40 mg PO DAILY 09/15/19 09/15/19 [Citalopram HBr] Fluticasone [Flonase] 2 sprays JEANNE DAILY 09/15/19 09/15/19 Hydrocodone/Acetaminophen 1 tab PO QID PRN 09/15/19 09/15/19 [Hydrocodone-Acetamin 5-325 mg] Ipratropium [Atrovent] 0.2 mg INH QID PRN 09/15/19 09/15/19 Mesalamine 4 gm MT QPM 09/15/19 09/15/19 Metoprolol Succinate 25 mg PO DAILY 09/15/19 09/15/19 SUMAtriptan [Sumatriptan] 20 mg JEANNE Q24H PRN MDD 40MG 09/15/19 09/15/19 Tiotropium [place] [Spiriva] 1 puffs INH QPM 09/15/19 09/15/19 Trazodone HCl 100 mg PO QPM 09/15/19 09/15/19 lisinopriL [Zestril] 5 mg PO DAILY 09/15/19 09/15/19 Balsalazide Disodium 3,000 mg PO QPM 09/17/19 09/17/19 LORazepam [Ativan] 1 mg PO Q8H PRN #15 tablet 09/20/19 Morphine Sulfate [Morphine Sulf 5 mg PO Q4H PRN #15 ml 09/20/19 Oral (Roxanol)] levoFLOXacin [Levaquin] 500 mg PO DAILY #7 tablet 09/20/19 predniSONE [Deltasone] 20 mg PO [id number] #21 tab 09/20/19 - PHYSICAL EXAM AT DISCHARGE General Appearance: positive: No acute distress, Alert. negative: Lethargic Eyes Bilateral: positive: Normal inspection, PERRL, No lid inflammation ENT: positive: ENT inspection nml, Pharynx nml, No signs of dehydration. negative: Purulent nasal drainage Neck: positive: Nml inspection, Thyroid nml, No JVD. negative: Trachea midline, Thyromegaly, Lymphadenopathy (R), Lymphadenopathy (L), Stiff neck, Tracheal deviation Respiratory: positive: Chest non-tender, No respiratory distress, Rales. negative: Breath sounds nml Cardiovascular: positive: Regular rate & rhythm, No murmur, No gallop. negative: Irregularly irregular, Extrasystoles, Tachycardia, Bradycardia, Systolic murmur, Diastolic murmur Peripheral Pulses: positive: 2+ Abdomen: positive: Non-tender, No organomegaly, Nml bowel sounds, No distention. negative: Tenderness, Guarding, Rebound Back: positive: Nml inspection. negative: CVA tenderness (R), CVA tenderness (L) Skin: positive: Color nml, No rash, Warm, Dry. negative: Cyanosis, Diaphoresis, Pallor Extremities: positive: Non-tender, Full ROM, Nml appearance. negative: Calf tenderness, Kwadwo's sign/cords Neurologic/Psychiatric: positive: Oriented x3, Sensation nml. negative: Weakness, Sensory loss, Facial droop, Slurred/abnml speech - LABS Result Diagrams: 09/20/19 04:40 09/20/19 04:40 - FOLLOW UP Follow Up: your pulmonary function status is returned to your baseline and stable, and without acute distress. pt are prescribed short term of steroid, and you can continue your home meds regimens. you are also prescribed anti-anxiety meds. antibiotics Levaquin is prescribed for your finishing of treatment course for pneumonia. advise you followup oncologist as out-pt. You may followup your PCP in one week, followup your bottom hoop driver and oncologist as out-pt. Should your symptoms return or worsen, you may present ER or call 911 for help - TIME SPENT Time Spent in Discharge (Minutes): 30
== END 2019-09-20 11:20 | disposition home or self-care (01) | DRG 189 ==
LOC: ED 08:10 → MS2 11:26
PROVIDERS: ADMIT Nurse Practitioner; ATTEND Nurse Practitioner Gerontology
DX: J96.01 Acute respiratory failure with hypoxia (principal); J18.1 Lobar pneumonia, unspecified organism; J44.0 Chronic obstructive pulmonary disease with (acute) lower respiratory infection; J44.1 Chronic obstructive pulmonary disease with (acute) exacerbation; K51.90 Ulcerative colitis, unspecified, without complications; C34.92 Malignant neoplasm of unspecified part of left bronchus or lung; F17.210 Nicotine dependence, cigarettes, uncomplicated; F41.9 Anxiety disorder, unspecified; I10 Essential (primary) hypertension; F40.240 Claustrophobia; I25.10 Atherosclerotic heart disease of native coronary artery without angina pectoris; R32 Unspecified urinary incontinence; R35.1 Nocturia; R35.0 Frequency of micturition; H54.7 Unspecified visual loss; J32.9 Chronic sinusitis, unspecified; H91.90 Unspecified hearing loss, unspecified ear; G89.29 Other chronic pain; M54.9 Dorsalgia, unspecified; M19.90 Unspecified osteoarthritis, unspecified site; Z91.19 Patient's noncompliance with other medical treatment and regimen; Z79.51 Long term (current) use of inhaled steroids; Z79.899 Other long term (current) drug therapy; Z99.81 Dependence on supplemental oxygen; I25.2 Old myocardial infarction
CPT/HCPCS: 36415; 36600; 71046; 80053; 81599; 82803; 83605; 83690; 83735; 83880; 84100; 84484; 85025; 85379; 86140; 87070; 87205; 87275; 87276; 87493; 93005; 94640; 96374; 96375; 99284; 99285; A9270; J1650; J2060; J7512; J7626; J8499

== ENCOUNTER 2019-09-20 16:53 | Outpatient (CLI) | payer MEDICAID | END 2019-09-20 16:54 | disposition EMS.NT | LOC: EMS 16:53 | PROVIDERS: ATTEND Surgery | DX: R06.02 Shortness of breath (principal) ==

== ENCOUNTER 2019-11-22 11:28 | Outpatient (CLI) | payer MEDICAID | END 2019-11-22 11:29 | disposition critical access hospital (66) | LOC: EMS 11:28 | PROVIDERS: ATTEND Surgery | DX: R06.02 Shortness of breath (principal) | CPT/HCPCS: A0425; A0429; A0999 ==

== ENCOUNTER 2019-11-22 12:09 | Inpatient (IN) | payer MEDICAID ==
[2019-11-22] MEDS ORDERED: DEXAMETHASONE 10 MG/ML VIAL IV STA (12:26)
[2019-11-22] MEDS ORDERED: IPRATROPIUM/ALBUTEROL 3 ML NEB INH STA (12:26)
[2019-11-22] MEDS ORDERED: ALBUTEROL 1 PUFF INH STA (12:47)
[2019-11-22 12:58] LABS: BASOPHILS # (AUTO) 0.1 10^3/uL (0.0-0.1); BASOPHILS % (AUTO) 0.5 %; EOSINOPHILS # (AUTO) 0.2 10^3/uL (0.0-0.7); EOSINOPHILS % (AUTO) 1.5 %; HGB - HEMOGLOBIN 11.4 g/dL (12.0-16.0); LYMPHOCYTES # (AUTO) 1.3 10^3/uL (1.5-3.5); LYMPHOCYTES % (AUTO) 9.6 %; MEAN CORPUSCULAR HEMOGLOBIN 27.7 pg (27.0-31.0); MEAN CORPUSCULAR HGB CONC 31.3 g/dL (32.0-36.0); MEAN CORPUSCULAR VOLUME 88.6 fL (81.0-99.0); MEAN PLATELET VOLUME 8.4 fL (7.9-10.8); MONOCYTES # (AUTO) 0.8 10^3/uL (0.0-1.0); MONOCYTES % (AUTO) 5.9 %; NEUTROPHILS # (AUTO) 11.3 10^3/uL (1.5-6.6); NEUTROPHILS % (AUTO) 81.9 %; PLT - PLATELET COUNT 370 10^3/uL (130-450); RED BLOOD COUNT 4.11 10^6/uL (4.20-5.40); RED CELL DISTRIBUTION WIDTH 16.3 % (12.0-15.0); WHITE BLOOD COUNT 13.8 x10^3/uL (4.8-10.8)
[2019-11-22 13:12] LABS: ABG BASE EXCESS 2.7 mmol/L (-2.0-3.0); ABG HCO3 26.3 mmol/L (22.0-26.0); ABG PCO2 37 mmHg (34-45); ABG PH 7.47 (7.35-7.45); ABG PO2 66 mmHg (80-100); ABG TCO2 27.5 MMOL/L (21.0-29.0)
[2019-11-22 13:13] LABS: ABG OXYGEN SATURATION 93 % (94-98)
[2019-11-22 13:15] LABS: ALBUMIN 3.3 g/dL (3.2-5.5); ALBUMIN/GLOBULIN RATIO 1.1 (1.0-2.2); BILIRUBIN,TOTAL 0.7 mg/dL (0.2-1.0); CALCIUM 9.3 mg/dL (8.5-10.3); CREATININE 0.7 mg/dL (0.4-1.0); TOTAL PROTEIN 6.4 g/dL (6.7-8.2)
--- NOTE | 2019-11-22 13:29 | XRAY Report ---
Reason: Chest pain Procedure Date: 11/22/2019 Accession Number: [id number] / [id number] Procedure: XR - Chest 1 View X-Ray CPT Code: 67752 Final Report FULL RESULT: EXAM: CHEST RADIOGRAPHY EXAM DATE: 11/22/2019 12:34 PM. CLINICAL HISTORY: Chest pain. Shortness of breath. COMPARISON: CHEST 2 VIEW 09/15/2019 8:53 AM. TECHNIQUE: 1 view. FINDINGS: Lungs/Pleura: There are patchy interstitial and airspace opacities in the left midlung and bilateral lung bases, similar to the prior exam. There is blunting of the left costophrenic sulcus. No pneumothorax. Mediastinum: The cardiac silhouette is normal in size. Prominent left hilar contour raises the possibility of left hilar adenopathy. Other: No acute osseous abnormality. IMPRESSION: 1. Similar appearance of interstitial and airspace opacities in the left midlung and bilateral lung bases. This could be due to edema in the setting of chronic fibrotic changes, multifocal pneumonia, or aspiration. 2. Blunting of the left costophrenic sulcus is suspicious for small left pleural effusion. 3. Prominent left hilar contour raises the possibility of left hilar adenopathy. This could be further evaluated with contrast enhanced CT of the chest when clinically appropriate. RADIA
[2019-11-22] MEDS ORDERED: IOVERSOL 320 100 ML VIAL IVP ONE ×2 (14:53→16:03)
[2019-11-22] MEDS ORDERED: LORazepam 2 MG/ML VIAL IVP STA (15:00)
--- NOTE | 2019-11-22 16:18 | CT Report ---
Reason: worsening SOB, h/o cancer Procedure Date: 11/22/2019 Accession Number: [id number] / [id number] Procedure: CT - ANGIO CHEST W/WO CPT Code: Final Report FULL RESULT: EXAM: CT ANGIOGRAM CHEST EXAM DATE: 11/22/2019 03:50 PM. CLINICAL HISTORY: Worsening SOB, h/o cancer. COMPARISON: None. TECHNIQUE: Routine helical imaging was performed through the chest in the pulmonary arterial phase. IV Contrast: 80 cc Optiray 320 IV. Reconstructions: Coronal 3-D MIP reconstructions. Sagittal and coronal. In accordance with CT protocol optimization, one or more of the following dose reduction techniques were utilized for this exam: automated exposure control, adjustment of mA and/or KV based on patient size, or use of iterative reconstructive technique. FINDINGS: Pulmonary Arteries: Diagnostic quality: Adequate through the segmental arteries. Negative for acute pulmonary embolism. Main pulmonary artery size is normal. Lungs/Pleura: There is complete consolidation of the left lower lobe. There is left lower lobe segmental airway narrowing. There is peripheral consolidation within the posterior aspect of the left upper lobe. There are moderate reticular opacities throughout both lungs. There is moderate emphysema. Negative for pneumothorax. There are several nonspecific round and ovoid nodules. There is a right lower lobe 8 mm nodule image 175 of series 6. There is an irregular shaped spiculated nodular opacity in the left upper lobe measuring 32 mm image 91. There is a trace left pleural effusion. Mediastinum: Heart size is normal. There is no pericardial effusion. There is left hilar and mediastinal lymphadenopathy. There are multiple enlarged left hilar lymph nodes including a 21 x 16 mm node. There is a subcarinal node measuring 22 x 18 mm. There is narrowing of the left superior pulmonary vein from a mass of nodes at the left hilum. Thoracic Aorta: There is moderate atherosclerotic disease of the thoracic aorta without aneurysm or dissection. Upper Abdomen: Unremarkable. Other: None. IMPRESSION: 1. Negative for acute pulmonary embolism. 2. Complete consolidation of the left lower lobe. Patchy consolidation in the left upper lobe. These findings could represent pneumonia, bronchogenic carcinoma, asymmetric pulmonary hemorrhage, edema, or radiation pneumonitis depending on clinical history. 3. Moderately bulky left hilar and mediastinal lymph node. The enlarged left hilar lymph nodes narrow the left superior pulmonary vein and left lower lobe bronchus. These lymph nodes are more suspicious for malignant adenopathy than reactive lymphadenopathy. 4. Moderate diffuse emphysema. 5. Comparison with any previous CT would be useful to evaluate for change. RADIA
[2019-11-22] MEDS ORDERED: cefTRIAXone 2 GM in SODIUM CHLORIDE 0.9% MINIBAG 100 ML IV STA (16:33)
[2019-11-22] MEDS ORDERED: AZITHROMYCIN INJ 500 MG in SODIUM CHLORIDE 0.9% 250 ML IV STA (16:33)
--- NOTE | 2019-11-22 16:46 | ED Physician Documentation ---
PD HPI DYSPNEA - Stated complaint Stated Complaint: SOA - Chief complaint Chief Complaint: Resp - History obtained from History obtained from: Patient - Additional information Additional information: Patient comes emergency department complaining of increasing dyspnea over the last couple of weeks. She states that she has a history of COPD and untreated lung cancer, and normally uses oxygen [id number] a couple of liters. However, the patient states that over the last 2 weeks that she has needed increasingly more oxygen and it does not seem to be helping. The patient denies measured fevers, but this feels more tired. She states that she has not had any worsening of her baseline cough. No rhinorrhea or sore throat. No hemoptysis. No sick contacts that she knows of. The patient states that she was told that She would not be a good candidate for cancer treatment, and so she has "nature take its course." However, she is not on hospice. Patient states she stopped smoking about 15 years ago but had smoked for decades before that. She states that she has been using her albuterol Atrovent nebulizers at home, and this does not seem to be helping at all. She states that normally, she is able to ambulate around the house, but that this is been very difficult recently, due to becoming severely short of breath with ambulation. The patient denies any history of DVT or PE. No other complaints at this time. Review of Systems Ten Systems: 10 systems reviewed and negative Constitutional: reports: Reviewed and negative Eyes: reports: Reviewed and negative Ears: reports: Reviewed and negative Nose: reports: Reviewed and negative Throat: reports: Reviewed and negative Cardiac: reports: Reviewed and negative Respiratory: reports: Dyspnea, Cough GI: reports: Reviewed and negative : reports: Reviewed and negative Skin: reports: Reviewed and negative Musculoskeletal: reports: Reviewed and negative Neurologic: reports: Reviewed and negative Psychiatric: reports: Reviewed and negative Endocrine: reports: Reviewed and negative Immunocompromised: reports: Reviewed and negative PD PAST MEDICAL HISTORY - Past Medical History Cardiovascular: Hypertension, High cholesterol, Coronary artery disease, Peripheral Vascular Disease, Murmur Respiratory: COPD, Emphysema, Shortness of breath, Other Neuro: Headaches, Migraines Endocrine/Autoimmune: None GI: GERD, Ulcerative colitis MDM SR: None : Incontinence, Nocturia, Frequency HEENT: Chronic vision loss, Chronic sinusitis, Chronic hearing loss Psych: Anxiety Musculoskeletal: Osteoarthritis, Fatigue, Chronic back pain Derm: None - Past Surgical History Past Surgical History: Yes General: Colonoscopy, EGD - Present Medications Home Medications: Ambulatory Orders Medication Instructions Recorded Confirmed Atorvastatin Calcium 80 mg PO QPM 09/15/19 11/22/19 Balsalazide Disodium 3,750 mg PO DAILY 09/15/19 11/22/19 Budesonide/Formoterol Fumarate 2 puffs INH BID 09/15/19 11/22/19 [Symbicort 80-4.5 Mcg Inhaler] Buspirone HCl 20 mg PO TID 09/15/19 11/22/19 Citalopram Hydrobromide 40 mg PO DAILY 09/15/19 11/22/19 [Citalopram HBr] Fluticasone [Flonase] 2 sprays JEANNE DAILY 09/15/19 11/22/19 Hydrocodone/Acetaminophen 1 tab PO QID PRN 09/15/19 11/22/19 [Hydrocodone-Acetamin 5-325 mg] Ipratropium [Atrovent] 0.2 mg INH QID PRN 09/15/19 11/22/19 Mesalamine 4 gm [place] QPM 09/15/19 11/22/19 Metoprolol Succinate 25 mg PO DAILY 09/15/19 11/22/19 SUMAtriptan [Sumatriptan] 20 mg JEANNE Q24H PRN MDD 40MG 09/15/19 11/22/19 Tiotropium [place] [Spiriva] 1 puffs INH QPM 09/15/19 11/22/19 Trazodone HCl 100 mg PO QPM 09/15/19 11/22/19 lisinopriL [Zestril] 5 mg PO DAILY 09/15/19 11/22/19 Balsalazide Disodium 3,000 mg PO QPM 09/17/19 11/22/19 ALPRAZolam [Alprazolam] 0.25 - 0.5 mg PO DAILY 11/22/19 11/22/19 Multivitamin [Theragran] 1 tab PO DAILY 11/22/19 11/22/19 - Allergies Allergies/Adverse Reactions: Allergies Allergy/AdvReac Type Severity Reaction Status Date / Time No Known Drug Allergies Allergy Verified 09/15/19 08:21 - Social History Does the pt smoke?: No Smoking Status: Never smoker Does the pt drink ETOH?: Yes Does the pt have substance abuse?: No - Immunizations Immunizations are current?: No - POLST Patient has POLST: No POLST Status: Full Code PD ED PE NORMAL - Vitals Vital signs reviewed: Yes - General General: Alert and oriented X 3, Other (Patient appears chronically ill. She is in moderate respiratory distress upon my initial evaluation peer) - HEENT HEENT: Atraumatic, PERRL, EOMI, Moist mucous membranes - Neck Neck: Supple, no meningeal sign - Cardiac Cardiac: RRR, No murmur, Strong equal pulses - Respiratory Respiratory: Other (Patient has diminished air movement bilaterally with occasional fine wheezes. She is tachypneic with mild laboring of respirations. She initially speaks in phrases, though this does improve throughout the course of our interview.) - Abdomen Abdomen: Soft, Non tender, Non distended - Derm Derm: Normal color, Warm and dry, No rash - Extremities Extremities: No deformity, No edema, No calf tenderness / cord - Neuro Neuro: Alert and oriented X 3 - Psych Psych: Normal mood, Normal affect Results - Vitals Vitals: Oxygen O2 Source Simple Mask Oxygen Flow Rate 15 - EKG (time done) 1219 Rate: Rate (enter#) (1219) Rhythm: Sinus tachycardia, Other (PVCs, occasional) [place]: Normal Intervals: Normal [place] QRS: Normal Ischemia: Normal ST segments, Non specific changes Compare to prior EKG: Old EKG unavailable - Labs Labs: Laboratory Tests 11/22/19 11/22/19 11/22/19 12:49 12:49 12:49 WBC 13.8 H RBC 4.11 L Hgb 11.4 L Hct 36.4 L MCV 88.6 MCH 27.7 MCHC 31.3 L RDW 16.3 H Plt Count 370 MPV 8.4 Neut # (Auto) 11.3 H Lymph # (Auto) 1.3 L [place] # (Auto) 0.8 Eos # (Auto) 0.2 Baso # (Auto) 0.1 Absolute Nucleated RBC 0.00 Nucleated RBC % 0.0 Bld Gas Analysis Time Sample Site ABG pH ABG pCO2 ABG pO2 ABG HCO3 ABG Total CO2 ABG O2 Saturation ABG Base Excess Ugo Test O2 Delivery Device O2 Liters/Min Sodium 139 Potassium 4.3 Chloride 101 Carbon Dioxide 29 Anion Gap 9.0 BUN 11 Creatinine 0.7 Estimated GFR (MDRD) 85 L Glucose 109 H Calcium 9.3 Total Bilirubin 0.7 AST 26 ALT 15 Alkaline Phosphatase 61 Troponin I High Sens 3.1 Total Protein 6.4 L Albumin 3.3 Globulin 3.1 Albumin/Globulin Ratio 1.1 Lipase 26 11/22/19 13:07 WBC RBC Hgb Hct MCV MCH MCHC RDW Plt Count MPV Neut # (Auto) Lymph # (Auto) [place] # (Auto) Eos # (Auto) Baso # (Auto) Absolute Nucleated RBC Nucleated RBC % Bld Gas Analysis Time 1311 Sample Site RIGHT BRACHIAL ABG pH 7.47 H ABG pCO2 37 ABG pO2 66 L ABG HCO3 26.3 H ABG Total CO2 27.5 ABG O2 Saturation 93 L ABG Base Excess 2.7 Ugo Test NOT APPLICABLE O2 Delivery Device NON REBREATHER MASK O2 Liters/Min 15.00 Sodium Potassium Chloride Carbon Dioxide Anion Gap BUN Creatinine Estimated GFR (MDRD) Glucose Calcium Total Bilirubin AST ALT Alkaline Phosphatase Troponin I High Sens Total Protein Albumin Globulin Albumin/Globulin Ratio Lipase - Rads (name of study) chest xray Radiology: Final report received, EMP read indepedently, See rad report CTA chest Radiology: Final report received, EMP read indepedently, See rad report PD MEDICAL DECISION MAKING - ED course Complexity details: reviewed results, re-evaluated patient, considered diff erential, d/w patient ED course: The patient was worked up with labs, EKG, chest x-ray, and ultimately, CT angiogram of the chest. She was found to have a mild leukocytosis. The patient was treated initially with IV Decadron and given the possibility of COVID, it was treated with puffs of albuterol instead of a DuoNeb.. This did provide only minimal improvement in the patient's sense of dyspnea. The patient was noted to be difficult to oxygenate, especially after walking to the bathroom. She was found to have a pulse ox of around 70 and was ultimately placed on a nonrebreather mask. After some minutes, her sats did eventually come up to the low 90s on this amount of oxygen. Because of this, I did obtain an ABG, which showed a pH of 7.469, PCO2 of 37.1, and PO2 of 66.4. The patient was not found to have major difficulty with speaking, however, and was after couple of minutes able to speak in full sentences to me throughout her interview. She was found to have complete consolidation of her left lower lobe and partial consolidation of her left upper lobe. This was felt to potentially be pneumonia versus malignancy. I discussed with the patient that she would be best off staying in the hospital, and she was agreeable to this plan. I spoke with Dr. Melissa, who is agreed to admit the patient to her service. I did order COVID testing on the pt, but pt refused swab. I went and explained to the pt why we would like to test her, and she still refused testing. I have asked her to further discuss the matter with her admitting team and reconsider her decision. Departure - Departure Disposition: 66 [facility] DC/Xfer Clinical Impression: COPD exacerbation Pneumonia Qualifiers: Pneumonia type: due to unspecified organism Laterality: left Lung location: unspecified part of lung Qualified Code(s): J18.9 - Pneumonia, unspecified organism Lung cancer Qualifiers: Laterality: unspecified laterality Lung location: unspecified part of lung Qualified Code(s): C34.90 - Malignant neoplasm of unspecified part of unspecified bronchus or lung Discharge Date/Time: 11/22/19 17:50
[2019-11-22] MEDS ORDERED: ACETAMINOPHEN 325 MG TABLET PO PRN (16:59)
[2019-11-22] MEDS ORDERED: ONDANSETRON 4 MG/2 ML VIAL IVP PRN (16:59)
--- NOTE | 2019-11-22 17:25 | PHARMACY PROGRESS NOTE ---
- Best Possible Medication History Admit Date and Time: 11/22/19 1659 Processed by: Pharmacy Medication History completed: Yes Patient Interview: Completed Secondary Source(s): Written medication list, Pharmacy records, Insurance records As the person ultimately responsible for medication therapy, providers are able to order a medication from an existing home medication list in [facility] via the "Reconcile Routine" prior to Confirmation of that medication by it desktop support technician. Such practice is discouraged except when the physician, in their clinical judgment, deems that a medical need exists for a medication without regard to previous use.
[2019-11-22 17:43] LABS: INR 1.1 (0.8-1.2); PT - PROTHROMBIN TIME 12.4 secs (9.9-12.6)
[2019-11-22] MEDS: DEXTROSE 5%-0.9% NACL 1,000 ML IV SCH (18:30)
[2019-11-22] MEDS: methylPREDNISolone SUCCINATE 40 MG/ML VIAL IVP SCH ×2 (18:42→23:35)
[2019-11-22] MEDS: SODIUM CHLORIDE FLUSH 0.9% 10 ML SYRINGE IVP SCH ×2 (18:43→21:45)
[2019-11-22] MEDS ORDERED: LEVALBUTEROL 1.25 MG/3 ML NEB INH PRN (19:00)
[2019-11-22] MEDS ORDERED: IPRATROPIUM 0.2 MG/ML NEB INH PRN (19:00)
--- NOTE | 2019-11-22 19:07 | HISTORY & PHYSICAL EXAMINATION ---
DATE OF SERVICE: 11/22/2019 Physician: Sary Melissa MD PRIMARY CARE PROVIDER: Dr. Feroz Hubbard, [place], [place]. HISTORY OF PRESENT ILLNESS: This is a 64-year-old white female with a history of heavy smoking until 15 years ago, COPD on home oxygen, lung cancer on the left side after biopsy done 2 years ago that was never treated with chemotherapy or other treatment because she was told she was too fragile to have the treatment. The patient was last admitted here 2 months ago with pneumonia and COPD exacerbation and had marked anxiety. She would not even allow a CT scan because of claustrophobia and anxiety. She had COVID testing then which was neg. The patient was admitted on 4 liters of oxygen at that time and now she is on 6 liters of oxygen. The patient now presents with 2 days of worsening shortness of breath, cough, tried to increase her inhaler treatments and her oxygen settings as high as 9 liters and has had no improvement, and presented to the ER. She describe white and blood-tinged sputum. In the ER, she had saturations in the 70% range, despite being on 6L of oxygen, and was put on a nonrebreather oxygen mask. She was given Ativan, had a chest x-ray that shows left-sided infiltrates and then did agree to a CTA of chest, which shows left lobe infiltrate, left upper lobe infiltrate, and lymphadenopathy. Blood gas was done in the ER that showed pH 7.46, pCO2 of 37, pO2 of 66 on a nonrebreather mask. The patient is being admitted to the ICU, because she is hypotensive with blood pressure in the 90s and heart rate of 100-110. PAST MEDICAL HISTORY 1. COPD, on home oxygen. 2. Lung cancer that was untreated. 3. Anxiety. 4. Ulcerative colitis history. 5. Hypertension. ALLERGIES: NONE. MEDICATIONS 1. Symbicort inhaler b.i.d. 2. Ipratropium inhaler q.i.d. p.r.n. 3. Lisinopril 5 mg daily. 4. Mesalamine 4 grams per rectum every evening. 5. Spiriva 1 puff every evening. 6. Alprazolam 0.5 mg daily. 7. Lipitor 80 mg every night. 8. Balsalazide 3000 mg in the evening and 3750 mg every morning. 9. Buspirone 20 mg t.i.d. 10. Citalopram 40 mg daily. 11. Flonase nasal spray daily. 12. Tylenol with Codeine p.r.n. 13. Metoprolol succinate 25 mg daily. 14. Multivitamin daily. 15. Sumatriptan 20 mg nasal spray daily. 16. Trazodone 100 mg every night. SOCIAL HISTORY: The patient was a heavy smoker until 15 years ago when she stopped. There has been no history of alcohol abuse or drug abuse. She lives with her significant other of 35 years. They recently moved to [facility] about 3 months ago. She still has her PCP on in [place], [place]. FAMILY HISTORY: She denies any inherited diseases that run in the family. REVIEW OF SYSTEMS: There has been no fever, travel or exposure to other people, GI symptoms, chest pain, palpitations or syncope. A comprehensive review of systems was performed, the pertinent positives are listed, the rest are negative. PHYSICAL EXAMINATION GENERAL: Cushingoid appearing, white female. She is in no respiratory distress on supplemental oxygen by mask. VITAL SIGNS: Blood pressure 98/60, heart rate 104 in sinus tachycardia, temperature 36, respiratory rate 24, O2 saturation 96% on an 8 liters per minute via mask. HEENT: Unremarkable, moist oral mucosa. NECK: Shows no JVD. CHEST: Diminished breath sounds diffusely, poor air movement. HEART: Tachycardic. No audible murmur. ABDOMEN: Soft, nontender. EXTREMITIES: No clubbing, or cyanosis. She has 1+ pre-tibial edema. NEUROLOGIC: Grossly intact. LABORATORY DATA: Normal electrolytes. Normal BUN and creatinine. Normal liver tests. Normal lipase. Troponin-hs is 3.1. White blood count 30.8 with a left shift, hemoglobin 11.4 with MCV 88, platelet count normal at 370. INR is pending. EKG: Sinus tachycardia, rate 120, low voltage, and diffusely flat T waves. This EKG is unchanged from her EKG 2 months ago. IMAGING: Chest x-ray: Left lower lobe consolidation, prominent left hilum, blunting of the left costophrenic angle, consistent with small pleural effusion, opacity in the left mid lung as well. CTA of the chest showed: no pulmonary embolism. She has complete consolidation of left lower lobe, patchy consolidation in the left upper lobe, bulky left hilar and mediastinal lymph node enlargement. The enlarged left hilar lymph nodes narrow the left superior pulmonary vein and left lower lobe bronchus, which appears suspicious for malignant adenopathy. There is diffuse emphysema. IMPRESSION/DIAGNOSIS 1. Sepsis, with elevated WBC, tachycardia and the source appears to be her lungs. 2. [id number] respiratory failure with hypoxia. 3. Chronic obstructive pulmonary disease exacerbation. 4. Community-acquired pneumonia, probably a post-obstructive pneumonia due to lung cancer. 5. Lung cancer. 6. Hypotension. 7. Tachycardia. 8. Abnormal EKG. 9. Anxiety disorder. 10. Anemia. 11. History of ulcerative colitis, no current symptoms. PLAN: Admit the patient to the ICU and continue with supplemental oxygen and respiratory therapy. Begin nebulizers q.i.d. and 4 hours p.r.n. Use Xopenex because of the tachycardia. Begin IV steroids. Begin Mucinex for expectoration. Add Singulair at bedtime as well. Obtain sputum culture and begin empiric Zithromax and Ceftriaxone treatment. This is very likely a postobstructive pneumonia given the findings of various obstruction on the CT scan chest. Since the patient is not undergoing chemotherapy, she does not want invasive management of her lung status. No cafeteria aide was contacted to consider bronchoscopy and transfer by the ER doctor. COVID nasal swab test ordered and begin respiratory isolation until her status is known. Check BNP regarding the shortness of breath as well and cycle troponins. Obtain an Echo. Obtain a lactic acid level regarding the hypotension, in case this is septic shock, and hold her lisinopril. Will continue the beta halley, but put hold orders if she has very low blood pressure. Check TSH level regarding the tachycardia. Check B12, folate and iron stores regarding her anemia. Watch for significant hemoptysis. Continue with her home medication for her colitis. Continue with her anxiety medications. Add morphine p.r.n. dyspnea and IV Ativan p.r.n. anxiety. CODE STATUS: FULL CODE. DEEP VENOUS THROMBOSIS PROPHYLAXIS: SCDs. ATTESTATION: The patient is expected to be discharged or transferred to another facility within 96 hours: Yes. TD: 11/22/2019 17:55 [facility]
[2019-11-22] MEDS: LEVALBUTEROL 1.25 MG/3 ML NEB INH SCH (19:48)
[2019-11-22] MEDS: HYDROcod/ACETAM 5/325 MG TABLET PO PRN (20:16)
[2019-11-22] MEDS: traZODone 50 MG TABLET PO SCH (21:34)
[2019-11-22] MEDS: ATORVASTATIN 40 MG TABLET PO SCH (21:35)
[2019-11-22] MEDS: guaiFENesin 600 MG TABLET PO SCH (21:35)
[2019-11-22] MEDS: busPIRone 5 MG TABLET PO SCH (21:35)
[2019-11-22] MEDS: MONTELUKAST 10 MG TABLET PO SCH (21:36)
[2019-11-22] MEDS: BALSALAZIDE DISODIUM PO SCH (21:40)
[2019-11-22] MEDS: MORPHINE 2 MG/ML CARPUJECT IVP PRN (21:45)
[2019-11-22 22:09] LABS: BILIRUBIN,URINE NEGATIVE (NEGATIVE); GLUCOSE, URINE (UA) NEGATIVE (NEGATIVE); KETONES,URINE (UA) NEGATIVE (NEGATIVE); LEUKOCYTE ESTERASE, URINE SMALL (NEGATIVE); NITRITE,URINE POSITIVE (NEGATIVE); OCCULT BLOOD,URINE NEGATIVE (NEGATIVE); PROTEIN,URINE NEGATIVE (NEGATIVE); UROBILINOGEN,URINE 0.2 (NORMAL) E.U./dL (NORMAL)
[2019-11-22 22:10] LABS: CLARITY,URINE CLEAR (CLEAR)
[2019-11-22 22:15] LABS: BACTERIA,URINE Few /HPF (None Seen); RBC,URINE None Seen /HPF (0-5); SQUAMOUS EPITHELIAL CELL,UR NONE SEEN (<= Few)
[2019-11-22] MEDS: SODIUM CHLORIDE FLUSH 0.9% 10 ML SYRINGE IVP PRN (23:35)
[2019-11-22] MEDS: LORazepam 2 MG/ML VIAL IVP PRN (23:36)
[2019-11-23] MEDS: DEXTROSE 5%-0.9% NACL 1,000 ML IV SCH ×2 (03:57→14:12)
[2019-11-23 05:23] LABS: BASOPHILS % (AUTO) 0.2 %; HGB - HEMOGLOBIN 9.9 g/dL (12.0-16.0); LYMPHOCYTES # (AUTO) 0.7 10^3/uL (1.5-3.5); LYMPHOCYTES % (AUTO) 7.7 %; MEAN CORPUSCULAR HEMOGLOBIN 27.7 pg (27.0-31.0); MEAN CORPUSCULAR HGB CONC 30.2 g/dL (32.0-36.0); MEAN CORPUSCULAR VOLUME 91.9 fL (81.0-99.0); MEAN PLATELET VOLUME 8.5 fL (7.9-10.8); MONOCYTES # (AUTO) 0.2 10^3/uL (0.0-1.0); NEUTROPHILS # (AUTO) 8.5 10^3/uL (1.5-6.6); NEUTROPHILS % (AUTO) 89.4 %; PLT - PLATELET COUNT 369 10^3/uL (130-450); RED BLOOD COUNT 3.57 10^6/uL (4.20-5.40); RED CELL DISTRIBUTION WIDTH 16.5 % (12.0-15.0); WHITE BLOOD COUNT 9.5 x10^3/uL (4.8-10.8)
[2019-11-23] MEDS: LORazepam 2 MG/ML VIAL IVP PRN ×2 (05:38→19:58)
[2019-11-23] MEDS: SODIUM CHLORIDE FLUSH 0.9% 10 ML SYRINGE IVP PRN ×3 (05:39→19:59)
[2019-11-23 05:42] LABS: CALCIUM 8.6 mg/dL (8.5-10.3); CREATININE 0.8 mg/dL (0.4-1.0); MAGNESIUM 2.1 mg/dL (1.7-2.8)
[2019-11-23 06:01] LABS: FOLATE 16.79 ng/mL (5.90 - >24.8)
[2019-11-23] MEDS: methylPREDNISolone SUCCINATE 40 MG/ML VIAL IVP SCH ×3 (06:22→18:18)
[2019-11-23] MEDS: PANTOPRAZOLE 40 MG VIAL IVP SCH (06:22)
[2019-11-23] MEDS: busPIRone 5 MG TABLET PO SCH ×3 (06:22→21:43)
[2019-11-23] MEDS: LEVALBUTEROL 1.25 MG/3 ML NEB INH SCH ×4 (07:44→19:26)
[2019-11-23] MEDS: SACCHAROMYCES BOULARDII 250 MG CAPSULE PO SCH ×2 (08:24→17:30)
[2019-11-23] MEDS: MULTIVITAMIN TABLET PO SCH (08:52)
[2019-11-23] MEDS: ALPRAZolam 0.25 MG TABLET PO SCH (08:52)
[2019-11-23] MEDS: AZITHROMYCIN 250 MG TABLET PO SCH (08:52)
[2019-11-23] MEDS: CITALOPRAM 10 MG TABLET PO SCH (08:52)
[2019-11-23] MEDS ORDERED: IPRATROPIUM 0.2 MG/ML NEB INH SCH (09:00)
[2019-11-23] MEDS: cefTRIAXone 2 GM in SODIUM CHLORIDE 0.9% MINIBAG 100 ML IV SCH (09:04)
[2019-11-23] MEDS: METOPROLOL SUCCINATE 25 MG TABLET PO SCH (09:05)
[2019-11-23] MEDS: MORPHINE 2 MG/ML CARPUJECT IVP PRN ×3 (09:10→21:46)
[2019-11-23] MEDS: SODIUM CHLORIDE FLUSH 0.9% 10 ML SYRINGE IVP SCH ×3 (09:11→21:47)
[2019-11-23] MEDS: guaiFENesin 600 MG TABLET PO SCH ×2 (11:03→21:43)
[2019-11-23] MEDS: FLUTICASONE NASAL SPRAY NAS SCH (11:11)
[2019-11-23] MEDS: HYDROcod/ACETAM 5/325 MG TABLET PO PRN ×2 (11:11→16:31)
[2019-11-23] MEDS: ENOXAPARIN 40 MG/0.4 ML SYRINGE SUBQ SCH (11:21)
[2019-11-23] MEDS: IPRATROPIUM 0.2 MG/ML NEB INH SCH ×3 (11:35→19:26)
[2019-11-23] MEDS: BUDESONIDE 0.5 MG/2 ML NEB INH SCH ×3 (11:37→19:26)
[2019-11-23] MEDS: BALSALAZIDE DISODIUM PO SCH ×2 (13:09→21:44)
[2019-11-23] MEDS: CARBOXYMETHYLCELLULOSE OPHTH DROPS EACHEYE PRN (16:21)
--- NOTE | 2019-11-23 16:32 | PROVIDER PROGRESS NOTE ---
Assessment/Plan - Problem List (1) Sepsis Assessment/Plan: She remains hypotensive and tachycardic. White blood count improved slightly, Lactic acid improved. Continue with fluid hydration and treatment of infection with antibiotics. Remain in the ICU. (2) Acute and chronic respiratory failure with hypoxia Assessment/Plan: She still requires higher supplemental oxygen than her 6 L O2 nasal cannula at home. Continue with oxygen support and treating the pneumonia and COPD exacerbation. (3) CAP (community acquired pneumonia) Assessment/Plan: She has been started on Zithromax and ceftriaxone. The concern is that this is a postobstructive pneumonia therefore oral anaerobes may also be present. If there is no clinical improvement, will need to increase antibiotics for more anaerobic coverage. Await sputum cultures. (4) COPD exacerbation Assessment/Plan: Continue with IV steroids, nebs, Mucinex, Singulair, treatment of the infection and supplemental oxygen. (5) Lung cancer Qualifiers: Laterality: unspecified laterality Lung location: unspecified part of lung Qualified Code(s): C34.90 - Malignant neoplasm of unspecified part of unspecified bronchus or lung Assessment/Plan: The CT angios showed compression from tumor plus nodes preventing pulmonary vein inflow, this could be adding to the hypotension. I discussed with hKari, that overall her status is worse than her admission 2 months ago. (6) Anxiety disorder Assessment/Plan: All her home medications are being used here. Khari requested that we use anxiolytics liberally. The patient cannot handle any medical updates, we are to call him with any information or for consents and he will "break it to her". (7) Anemia Assessment/Plan: Awaiting B12, folate, iron studies. She did report minimal hemoptysis, we have not seen any since admission. (8) Ulcerative colitis Assessment/Plan: This is currently quiesced sent. Her medications, which are nonformulary, were brought in by her significant other to use here - Current Meds Current Meds: Current Medications Generic Name Dose Route Start Last Admin Trade Name Freq PRN Reason Stop Dose Admin Hydrocodone Bitart/Acetaminophen 1 tab 11/22/19 21:00 11/23/19 11:11 [place] 5/325 PO 1 tab QID PRN Administration CANCER PAIN Alprazolam 0.25 - 0.5 mg 11/23/19 09:00 05/22/20 08:52 Xanax PO 0.25 mg DAILY AMADO Administration Atorvastatin Calcium 80 mg 11/22/19 21:00 11/22/19 21:35 Lipitor PO 80 mg QPM AMADO Administration Azithromycin 250 mg 11/23/19 09:00 11/23/19 08:52 Zithromax PO 11/27/19 00:00 250 mg DAILY AMADO Administration Budesonide 0.5 mg 11/23/19 09:30 11/23/19 11:45 Pulmicort INH 0.5 mg RTBID AMADO Administration Buspirone HCl 20 mg 11/22/19 22:00 11/23/19 06:22 Buspar PO 20 mg TID AMADO Administration Carboxymethylcellulose 1 drops 11/23/19 13:15 11/23/19 16:21 Refresh 1% Ophth Drops EACHEYE 1 applic PRN PRN Administration Dry Eye Citalopram Hydrobromide 40 mg 11/23/19 09:00 11/23/19 08:52 Celexa PO 40 mg DAILY AMADO Administration Enoxaparin Sodium 40 mg 11/23/19 11:00 11/23/19 11:21 Lovenox SUBQ 40 mg DAILY AMADO Administration Fluticasone Propionate 2 sprays 11/23/19 09:00 11/23/19 11:11 Flonase JEANNE 2 sprays DAILY AMADO Administration Guaifenesin 600 mg 11/22/19 21:00 11/23/19 11:03 Mucinex PO 600 mg BID AMADO Administration Dextrose/Sodium Chloride 1,000 mls @ 100 mls/hr 11/22/19 17:00 11/23/19 14:12 D5ns IV 100 mls/hr .Q10H AMADO Administration Ceftriaxone Sodium 2 gm/ 100 mls @ 200 mls/hr 11/23/19 09:00 11/23/19 09:35 Sodium Chloride IV Infused DAILY AMADO Infusion Ipratropium [place] 0.5 mg 11/23/19 15:00 11/23/19 15:28 Atrovent INH 0.5 mg RTQID AMADO Administration Levalbuterol HCl 1.25 mg 11/22/19 19:00 11/23/19 15:28 Xopenex INH 1.25 mg RTQID AMADO Administration Lorazepam 0.5 mg 11/22/19 17:12 11/23/19 05:38 Ativan Inj (Vial) IVP 0.5 mg Q2H PRN Administration Anxiety Methylprednisolone 40 mg 11/22/19 18:00 11/23/19 13:12 Solu-Medrol (40mg Vial) IVP 40 mg Q6HR AMADO Administration Metoprolol Succinate 25 mg 11/23/19 09:00 11/23/19 09:05 Toprol Xl PO Not Given DAILY AMADO Montelukast Sodium 10 mg 11/22/19 21:00 11/22/19 21:36 Singulair PO 10 mg QPM AMADO Administration Morphine Sulfate 1 mg 11/22/19 16:59 11/23/19 09:10 Morphine (Carpuject) IVP 1 mg Q3HR PRN Administration Dyspnea Multivitamins 1 tab 11/23/19 09:00 11/23/19 08:52 Theragran PO 1 tab DAILY AMADO Administration (Balsalazide 3,000 mg 11/22/19 21:00 11/22/19 21:40 Disodium [ PO Not Given Balsalazide Disodium QPM AMADO ] 3,000 Mg) (Balsalazide 3,750 mg 11/23/19 09:00 11/23/19 13:09 Disodium [ PO 3,750 mg Balsalazide Disodium DAILY AMADO Administration ] 3,750 Mg) (Mesalamine [ 4 gm 11/22/19 21:00 11/22/19 21:40 Mesalamine] 4 Gm) MS Not Given QPM AMADO Ondansetron HCl 4 mg 11/22/19 16:59 11/23/19 05:36 Zofran Inj IVP 4 mg Q6HR PRN Administration Nausea / Vomiting Pantoprazole Sodium 40 mg 11/23/19 07:00 11/23/19 06:22 Protonix IVP 40 mg QDAC AMADO Administration Saccharomyces Boulardii 250 mg 11/23/19 08:00 11/23/19 08:24 Florastor PO 250 mg BIDWM AMADO Administration Sodium Chloride 10 ml 11/22/19 17:00 11/23/19 09:11 Normal Saline Flush 0.9% IVP 10 ml 0100,0900,1700 AMADO Administration Sodium Chloride 10 ml 11/22/19 16:59 11/23/19 06:22 Normal Saline Flush 0.9% IVP 10 ml PRN PRN Administration NEEDED PER PROVIDER ORDERS Trazodone HCl 100 mg 11/22/19 21:00 11/22/19 21:34 Desyrel PO 100 mg QPM AMADO Administration - Lab Result Fish Bone Diagrams: 11/23/19 05:10 11/23/19 05:10 - Additional Planning My Orders: My Active Orders 11/22/19 16:59 Activity Orders [RC] Q2HR Daily Weight [RC] 0600 IO [RC] Q1HR Initiate Bowel Care Protocol [RC] QSHIFT Initiate Bronchodialator Karel [RC] .PROTOCOL Initiate ICU Electrolyte Prot. [RC] .protocol Initiate Line Care Protocol [RC] .protocol Initiate Lung Inflation Protoc [RC] .PROTOCOL Initiate Personal Care Protoco [RC] .protocol Initiate Secretion Clearance P [RC] .PROTOCOL Acetaminophen [Tylenol] 650 mg PO Q4HR PRN Morphine Inj (Carpuject) [Morphine (Carpuject)] 1 mg IVP Q3HR PRN Ondansetron Inj [Zofran Inj] 4 mg IVP Q6HR PRN Sodium Chloride Flush 0.9% [Normal Saline Flush 0.9%] 10 ml IVP PRN PRN Code Status [OTHERS] Routine Condition of Patient [OTHERS] Routine DVT Prophylaxis [OTHERS] Routine 11/22/19 17:00 Dextrose 5%-0.9% NaCl [D5ns] 1,000 ml IV 100 mls/hr Sodium Chloride Flush 0.9% [Normal Saline Flush 0.9%] 10 ml IVP 0100,0900,1700 11/22/19 17:02 Oxygen Therapy [RC] .PRN Telemetry- [RC] Q4HR 11/22/19 17:07 Initiate Line Care Protocol [RC] QSHIFT Isolation [Infection Precautions] [RC] ONCE 11/22/19 17:12 LORazepam INJ [Ativan Inj (Vial)] 0.5 mg IVP Q2H PRN 11/22/19 17:28 SUMAtriptan [Sumatriptan] 20 mg JEANNE Q24H PRN 11/22/19 18:00 methylPREDNISolone SUCCINATE [SOLU-Medrol (40MG VIAL)] 40 mg IVP Q6HR 11/22/19 19:00 Ipratropium [Atrovent] 0.5 mg INH RTQ6H PRN Levalbuterol [Xopenex] 1.25 mg INH RTQ4H PRN Levalbuterol [Xopenex] 1.25 mg INH RTQID 11/22/19 20:11 Nebulizer [Nebulizer/MDI Tx.] [RC] .qid&q4prn 11/22/19 21:00 Atorvastatin [Lipitor] 80 mg PO QPM Balsalazide Disodium [Balsalazide Disodium] 3,000 mg PO QPM HYDROcod/ACETAM 5/325 [[place] 5/325] 1 tab PO QID PRN Mesalamine [Mesalamine] 4 gm MS QPM Montelukast [Singulair] 10 mg PO QPM guaiFENesin [Mucinex] 600 mg PO BID traZODone [Desyrel] 100 mg PO QPM 11/22/19 21:44 CUL, URINE [RM] Routine 11/22/19 22:00 busPIRone [Buspar] 20 mg PO TID 11/22/19 Dinner Soft Mechanical Diet [DIET] 11/23/19 07:00 Pantoprazole [Protonix] 40 mg IVP QDAC 11/23/19 08:00 Echo Transthoracic Complete [ECHO] Routine Saccharomyces Boulardii [Florastor] 250 mg PO BIDWM 11/23/19 08:26 Isolation [Isolation - Discontinue] [RC] .once 11/23/19 08:52 Resp Teach Nebulizer/MDI [RC] .ONCE 11/23/19 09:00 ALPRAZolam [Xanax] 0.25 - 0.5 mg PO DAILY Azithromycin [Zithromax] 250 mg PO DAILY Balsalazide Disodium [Balsalazide Disodium] 3,750 mg PO DAILY Citalopram [CeleXA] 40 mg PO DAILY Fluticasone [Flonase] 2 sprays JEANNE DAILY Metoprolol Succinate [Toprol Xl] 25 mg PO DAILY Multivitamin [Theragran] 1 tab PO DAILY cefTRIAXone [Rocephin] 2 gm Sodium Chloride 0.9% Minibag [Normal Saline 0.9% Minibag] 100 ml IV DAILY 11/23/19 09:30 Budesonide [Pulmicort] 0.5 mg INH RTBID 11/23/19 11:00 Enoxaparin [Lovenox] 40 mg SUBQ DAILY 11/23/19 13:15 Carboxymethylcellulose 1% Opht [Refresh 1% Ophth Drops] 1 drops EACHEYE PRN PRN 11/23/19 15:00 Ipratropium [Atrovent] 0.5 mg INH RTQID 11/24/19 05:00 BMP - BASIC METABOLIC PANEL [CHEM] DAILYLAB CBC - COMP BLD CT W/AUTO DIFF [HEME] DAILYLAB 11/25/19 05:00 BMP - BASIC METABOLIC PANEL [CHEM] DAILYLAB CBC - COMP BLD CT W/AUTO DIFF [HEME] DAILYLAB Subjective - Subjective Patient Reports: Feeling Better ("Happy that her COVID test is neg", said her signioficant other, Khari , at bedside.) Objective Vital Signs: Vital Signs - 24 hr 11/22/19 11/22/19 11/22/19 17:00 18:00 19:00 Temperature 36.6 C Heart Rate 104 H Heart Rate [ 100 99 Monitoring electrodes] Respiratory 20 19 22 Rate Blood Pressure 98/60 Blood Pressure 93/52 L 96/76 [Left Brachial artery] O2 Saturation 96 95 93 11/22/19 11/22/19 11/22/19 19:45 20:00 21:00 Temperature 36.4 C L Heart Rate 91 Heart Rate [ 99 104 H Monitoring electrodes] Respiratory 22 19 16 Rate Blood Pressure Blood Pressure 92/58 L 103/58 L [Left Brachial artery] O2 Saturation 94 90 L 11/22/19 11/22/19 11/22/19 22:00 23:00 23:36 Temperature 36.6 C 36.8 C Heart Rate Heart Rate [ 97 94 94 Monitoring electrodes] Respiratory 16 17 18 Rate Blood Pressure Blood Pressure 88/56 L 85/49 L 90/61 [Left Brachial artery] O2 Saturation 93 95 94 11/23/19 11/23/19 11/23/19 00:45 01:00 01:26 Temperature Heart Rate Heart Rate [ 88 91 88 Monitoring electrodes] Respiratory 17 15 15 Rate Blood Pressure Blood Pressure 85/50 L 81/42 L 84/50 L [Left Brachial artery] O2 Saturation 91 L 94 92 11/23/19 11/23/19 11/23/19 02:00 03:00 04:00 Temperature 36.8 C Heart Rate Heart Rate [ 89 80 89 Monitoring electrodes] Respiratory 15 15 16 Rate Blood Pressure Blood Pressure 80/48 L 84/55 L 87/51 L [Left Brachial artery] O2 Saturation 93 93 94 11/23/19 11/23/19 11/23/19 05:00 06:00 07:00 Temperature 36.6 C Heart Rate Heart Rate [ 107 H 101 H 89 Monitoring electrodes] Respiratory 17 21 17 Rate Blood Pressure Blood Pressure 103/56 L 98/56 L 89/52 L [Left Brachial artery] O2 Saturation 91 L 92 92 11/23/19 11/23/19 11/23/19 07:48 07:53 08:00 Temperature 36.6 C 37.5 C Heart Rate 104 H 104 H Heart Rate [ 110 H Monitoring electrodes] Respiratory 20 20 14 Rate Blood Pressure Blood Pressure 97/53 L [Left Brachial artery] O2 Saturation 92 90 L 11/23/19 11/23/19 11/23/19 09:00 10:00 11:00 Temperature Heart Rate Heart Rate [ 118 H 105 H 114 H Monitoring electrodes] Respiratory 21 15 15 Rate Blood Pressure Blood Pressure 103/61 102/57 L 108/63 [Left Brachial artery] O2 Saturation 92 94 91 L 11/23/19 11/23/19 11/23/19 11:38 12:00 13:00 Temperature Heart Rate 112 H Heart Rate [ 125 H 120 H Monitoring electrodes] Respiratory 21 23 18 Rate Blood Pressure Blood Pressure 91/58 L 109/52 L [Left Brachial artery] O2 Saturation 87 L 87 L 11/23/19 11/23/19 11/23/19 14:00 15:00 15:30 Temperature Heart Rate 113 H Heart Rate [ 122 H 118 H Monitoring electrodes] Respiratory 13 18 18 Rate Blood Pressure Blood Pressure 106/54 L 103/57 L [Left Brachial artery] O2 Saturation 81 L 82 L 11/23/19 11/23/19 15:34 16:00 Temperature 36.7 C 36.7 C Heart Rate Heart Rate [ 121 H Monitoring electrodes] Respiratory 21 Rate Blood Pressure Blood Pressure 118/77 [Left Brachial artery] O2 Saturation 90 L Oxygen O2 Source Oxymizer Oxygen Flow Rate 15 I&O (Last 24 Hrs): Intake and Output Totals x24h 11/21/19 11/22/19 11/23/19 23:59 23:59 23:59 Intake Total 890 3435.000 Output Total 1075 725 Balance -185 2710.000 General: Alert, Oriented x3 HEENT: Mucous membr. moist/pink, Other (Cushingoid appearing, edentulous, wearing oximizer.) Neck: Supple Neuro: Non Focal Cardiovascular: Regular rate Respiratory: Breath sounds nml (Poor air movement with diminished breath sounds but no wheezes or rales) Abdomen: Soft Extremities: No edema - Results Results: Laboratory Results WBC 9.5 x10^3/uL (4.8-10.8) 11/23/19 05:10 RBC 3.57 10^6/uL (4.20-5.40) L 11/23/19 05:10 Hgb 9.9 g/dL (12.0-16.0) L 11/23/19 05:10 Hct 32.8 % (37.0-47.0) L 11/23/19 05:10 MCV 91.9 fL (81.0-99.0) 11/23/19 05:10 MCH 27.7 pg (27.0-31.0) 11/23/19 05:10 MCHC 30.2 g/dL (32.0-36.0) L 11/23/19 05:10 RDW 16.5 % (12.0-15.0) H 11/23/19 05:10 Plt Count 369 10^3/uL (130-450) 11/23/19 05:10 MPV 8.5 fL (7.9-10.8) 11/23/19 05:10 Neut # (Auto) 8.5 10^3/uL (1.5-6.6) H 11/23/19 05:10 Lymph # (Auto) 0.7 10^3/uL (1.5-3.5) L 11/23/19 05:10 [place] # (Auto) 0.2 10^3/uL (0.0-1.0) 11/23/19 05:10 Eos # (Auto) 0.0 10^3/uL (0.0-0.7) 11/23/19 05:10 Baso # (Auto) 0.0 10^3/uL (0.0-0.1) 11/23/19 05:10 Absolute Nucleated RBC 0.00 x10^3/uL 11/23/19 05:10 Nucleated RBC % 0.0 /100WBC 11/23/19 05:10 PT 12.4 secs (9.9-12.6) 11/22/19 17:30 INR 1.1 (0.8-1.2) 11/22/19 17:30 Bld Gas Analysis Time 1311 11/22/19 13:07 Sample Site RIGHT BRACHIAL 11/22/19 13:07 ABG pH 7.47 (7.35-7.45) H 11/22/19 13:07 ABG pCO2 37 mmHg (34-45) 11/22/19 13:07 ABG pO2 66 mmHg (80-100) L 11/22/19 13:07 ABG HCO3 26.3 mmol/L (22.0-26.0) H 11/22/19 13:07 ABG Total CO2 27.5 MMOL/L (21.0-29.0) 11/22/19 13:07 ABG O2 Saturation 93 % (94-98) L 11/22/19 13:07 ABG Base Excess 2.7 mmol/L (-2.0-3.0) 11/22/19 13:07 Ugo Test NOT APPLICABLE 11/22/19 13:07 O2 Delivery Device NON REBREATHER MASK 11/22/19 13:07 O2 Liters/Min 15.00 LPM 11/22/19 13:07 Sodium 141 mmol/L (135-145) 11/23/19 05:10 Potassium 4.2 mmol/L (3.5-5.0) 11/23/19 05:10 Chloride 107 mmol/L (101-111) 11/23/19 05:10 Carbon Dioxide 25 mmol/L (21-32) 11/23/19 05:10 Anion Gap 9.0 (6-13) 11/23/19 05:10 BUN 15 mg/dL (6-20) 11/23/19 05:10 Creatinine 0.8 mg/dL (0.4-1.0) 11/23/19 05:10 Estimated GFR (MDRD) 72 (>89) L 11/23/19 05:10 Glucose 217 mg/dL (70-100) H 11/23/19 05:10 Lactic Acid 0.9 mmol/L (0.5-2.2) 11/22/19 17:30 Calcium 8.6 mg/dL (8.5-10.3) 11/23/19 05:10 Phosphorus 4.0 mg/dL (2.5-4.6) 11/23/19 05:10 Magnesium 2.1 mg/dL (1.7-2.8) 11/23/19 05:10 Iron 22 ug/dL (28-170) L 11/23/19 05:10 TIBC 269 ug/dL (250-450) 11/23/19 05:10 % Saturation 8 % (20-50) L 11/23/19 05:10 Transferrin 192 mg/dL (192-382) 11/23/19 05:10 Total Bilirubin 0.7 mg/dL (0.2-1.0) 11/22/19 12:49 AST 26 IU/L (10-42) 11/22/19 12:49 ALT 15 IU/L (10-60) 11/22/19 12:49 Alkaline Phosphatase 61 IU/L (42-121) 11/22/19 12:49 Troponin I High Sens 2.8 ng/L (2.3-14.8) 11/22/19 17:30 B-Natriuretic Peptide 88 pg/mL (5-100) 11/22/19 17:30 Total Protein 6.4 g/dL (6.7-8.2) L 11/22/19 12:49 Albumin 3.3 g/dL (3.2-5.5) 11/22/19 12:49 Globulin 3.1 g/dL (2.1-4.2) 11/22/19 12:49 Albumin/Globulin Ratio 1.1 (1.0-2.2) 11/22/19 12:49 Lipase 26 U/L (22-51) 11/22/19 12:49 Vitamin B12 446 pg/mL (180-914) 11/23/19 05:10 Folate 16.79 ng/mL (5.90 - >24.8) 11/23/19 05:10 TSH 0.43 uIU/mL (0.34-5.60) 11/22/19 17:30 Urine Color YELLOW 11/22/19 21:44 Urine Clarity CLEAR (CLEAR) 11/22/19 21:44 Urine pH 6.0 PH (5.0-7.5) 11/22/19 21:44 Ur Specific [place] <=1.005 (1.002-1.030) 11/22/19 21:44 Urine Protein NEGATIVE mg/dL (NEGATIVE) 11/22/19 21:44 Urine Glucose (UA) NEGATIVE mg/dL (NEGATIVE) 11/22/19 21:44 Urine Ketones NEGATIVE mg/dL (NEGATIVE) 11/22/19 21:44 Urine Occult Blood NEGATIVE (NEGATIVE) 11/22/19 21:44 Urine Nitrite POSITIVE (NEGATIVE) H 11/22/19 21:44 Urine Bilirubin NEGATIVE (NEGATIVE) 11/22/19 21:44 Urine Urobilinogen 0.2 (NORMAL) E.U./dL (NORMAL) 11/22/19 21:44 Ur Leukocyte Esterase SMALL (NEGATIVE) H 11/22/19 21:44 Urine RBC None Seen /HPF (0-5) 11/22/19 21:44 Urine WBC 6-10 /HPF (0-5) H 11/22/19 21:44 Ur Squamous Epith Cells NONE SEEN (<= Few) 11/22/19 21:44 Urine Bacteria Few /HPF (None Seen) 11/22/19 21:44 Ur Microscopic Review INDICATED 11/22/19 21:44 Urine Culture Comments INDICATED 11/22/19 21:44 Nasal Screen MRSA (PCR) NEGATIVE (NEGATIVE) 11/22/19 18:41 Coronavirus (PCR) NEGATIVE 11/22/19 18:41
--- NOTE | 2019-11-23 16:34 | ADVANCE CARE PLANNING NOTE ---
Advance Care Planning - Planning Encounter Date: 11/23/19 Time: 16:00 Purpose: To update the significant other and DPOA, Khari, about her status. To confirm her wishes regarding Code status and medical management. Parties in Attendance: I spoke to Khari, her significant other and DPOA, outside the patient's room. Decisional Capacity of the Patient: Patient is alert and oriented but because of her extreme anxiety, she does not make medical decisions. The patient wants everything told to her significant other, Khari, including updates and procedures and he will "break it to her". He is her DPOA and he makes all her medical decisions. He brought in paperwork for this. - Diagnosis for Encounter (1) Sepsis Summary: I discussed her hypotension, tachycardia and pulmonary source of infection. (2) Anxiety disorder Summary: Her anxiety is so severe that she cannot handle getting medical updates, everything must be told to Khari, and he will "break it" to her. - Encounter Subjective/Patient's Story: This is a 64-year-old female patient who used to be a smoker, has COPD and is on home oxygen, has lung cancer which has not been treated, she wants it to run its course. She has extreme anxiety, is on several medications for this. She cannot "handle getting medical information". Khari is her DPOA and makes all her medical decisions. Yesterday she told me she wants to be a full code, today her significant other brings in advanced directives that state she is a DNR. Objective/Medical Story: Patient was here 2 months ago with COPD exacerbation, community-acquired pneumonia, and has severe anxiety. She required 4 L of oxygen continuously then. Now she presents on 6 L of oxygen with the same symptoms but new hypotension and tachycardia. She is in the ICU this time as opposed to 2 months ago. She did reluctantly undergo a COVID test yesterday which has come back negative today. She is getting treated for COPD exacerbation with nebs and steroids, is on antibiotics for community-acquired pneumonia which is also a suspected post-obstructive pneumonia, from untreated lung cancer. She did also have a CT angiogram yesterday (probably after being sedated, because she vehemently refused one last admission), and this showed lung tumor and enlarged lymph nodes compressing the venous inflow in the pulmonary vein emptying into the left atrium. This could also explain her hypotension. Goals of Care: I reviewed the Advance Directives which Khari brought in. The patient wants to be a DNR. She wants minimal procedures done, no invasive and aggressive medical management. Khari brought up that he realizes that she will need more home caregivers after this admission, and shares with me that the patient was tearful and anxious when she heard this from him. Plan: Continue with the current medical management for her diagnoses. Change CODE STATUS to DNR. Khari will be allowed to visit because of her serious condition and psychiatric issues. Khari will be called with all medical updates and for any decision making. Code Status: Do Not Attempt Resuscitation Time spent on advance care plannin min
[2019-11-23] MEDS: BENZONATATE 100 MG CAPSULE PO PRN (18:29)
[2019-11-23] MEDS: ATORVASTATIN 40 MG TABLET PO SCH (21:43)
[2019-11-23] MEDS: traZODone 50 MG TABLET PO SCH (21:43)
[2019-11-23] MEDS: MONTELUKAST 10 MG TABLET PO SCH (21:43)
[2019-11-24] MEDS: LORazepam 2 MG/ML VIAL IVP PRN ×3 (00:14→23:12)
[2019-11-24] MEDS: methylPREDNISolone SUCCINATE 40 MG/ML VIAL IVP SCH ×5 (00:14→23:12)
[2019-11-24] MEDS: SODIUM CHLORIDE FLUSH 0.9% 10 ML SYRINGE IVP PRN ×4 (00:14→20:41)
[2019-11-24] MEDS: DEXTROSE 5%-0.9% NACL 1,000 ML IV SCH ×2 (00:18→10:45)
[2019-11-24] MEDS: HYDROcod/ACETAM 5/325 MG TABLET PO PRN ×3 (00:28→21:02)
[2019-11-24] MEDS: MORPHINE 2 MG/ML CARPUJECT IVP PRN ×4 (04:52→20:41)
[2019-11-24 05:30] LABS: BASOPHILS % (AUTO) 0.2 %; HGB - HEMOGLOBIN 8.6 g/dL (12.0-16.0); LYMPHOCYTES # (AUTO) 0.6 10^3/uL (1.5-3.5); LYMPHOCYTES % (AUTO) 4.1 %; MEAN CORPUSCULAR HGB CONC 30.3 g/dL (32.0-36.0); MEAN CORPUSCULAR VOLUME 92.5 fL (81.0-99.0); MEAN PLATELET VOLUME 8.5 fL (7.9-10.8); MONOCYTES # (AUTO) 0.5 10^3/uL (0.0-1.0); MONOCYTES % (AUTO) 3.1 %; NEUTROPHILS # (AUTO) 13.2 10^3/uL (1.5-6.6); PLT - PLATELET COUNT 385 10^3/uL (130-450); RED BLOOD COUNT 3.07 10^6/uL (4.20-5.40); RED CELL DISTRIBUTION WIDTH 16.7 % (12.0-15.0); WHITE BLOOD COUNT 14.5 x10^3/uL (4.8-10.8)
[2019-11-24 05:34] LABS: CREATININE 0.6 mg/dL (0.4-1.0)
[2019-11-24] MEDS: BENZONATATE 100 MG CAPSULE PO PRN ×2 (06:11→21:04)
[2019-11-24] MEDS: busPIRone 5 MG TABLET PO SCH ×3 (06:11→21:04)
[2019-11-24] MEDS: PANTOPRAZOLE 40 MG VIAL IVP SCH (06:11)
[2019-11-24] MEDS: CARBOXYMETHYLCELLULOSE OPHTH DROPS EACHEYE PRN (06:43)
[2019-11-24] MEDS: IPRATROPIUM 0.2 MG/ML NEB INH SCH ×4 (07:42→19:24)
[2019-11-24] MEDS: BUDESONIDE 0.5 MG/2 ML NEB INH SCH ×2 (07:42→19:24)
[2019-11-24] MEDS: LEVALBUTEROL 1.25 MG/3 ML NEB INH SCH ×4 (07:42→19:23)
[2019-11-24] MEDS: SACCHAROMYCES BOULARDII 250 MG CAPSULE PO SCH ×2 (08:07→17:02)
[2019-11-24] MEDS: ALPRAZolam 0.25 MG TABLET PO SCH (08:08)
[2019-11-24] MEDS: AZITHROMYCIN 250 MG TABLET PO SCH (08:08)
[2019-11-24] MEDS: CITALOPRAM 10 MG TABLET PO SCH (08:11)
[2019-11-24] MEDS: BALSALAZIDE DISODIUM PO SCH ×2 (08:11→21:10)
[2019-11-24] MEDS: FLUTICASONE NASAL SPRAY NAS SCH (08:12)
[2019-11-24] MEDS: METOPROLOL SUCCINATE 25 MG TABLET PO SCH (08:13)
[2019-11-24] MEDS: guaiFENesin 600 MG TABLET PO SCH ×2 (08:13→21:03)
[2019-11-24] MEDS: MULTIVITAMIN TABLET PO SCH (08:14)
[2019-11-24] MEDS: cefTRIAXone 2 GM in SODIUM CHLORIDE 0.9% MINIBAG 100 ML IV SCH (08:15)
[2019-11-24] MEDS: SODIUM CHLORIDE FLUSH 0.9% 10 ML SYRINGE IVP SCH ×4 (08:15→23:12)
[2019-11-24] MEDS: ENOXAPARIN 40 MG/0.4 ML SYRINGE SUBQ SCH (08:39)
--- NOTE | 2019-11-24 13:50 | PROVIDER PROGRESS NOTE ---
Assessment/Plan - Problem List (1) Acute and chronic respiratory failure with hypoxia Assessment/Plan: There has been a slow improvement in her respiratory status. Blood pressure has improved. We will transfer her out of the ICU status. Start PT, was ordered today, and Khari was told and he agreed. (2) CAP (community acquired pneumonia) Assessment/Plan: The sputum only grew oral brenton, no pathologies. Part of the appearance of infiltrates is postobstructive, undoubtedly. Continue empiric antibiotics, a 7-day course will be planned. (3) COPD exacerbation Assessment/Plan: She is making slow improvement. Continue with nebs, steroids, Mucinex, Tessalon Perles, antibiotics, oxygen supplement (4) Lung cancer Qualifiers: Laterality: unspecified laterality Lung location: unspecified part of lung Qualified Code(s): C34.90 - Malignant neoplasm of unspecified part of unspecified bronchus or lung Assessment/Plan: No significant hemoptysis since here. She reported intermittent trivial hemoptysis at home. Pulmonary status is minimally improved. The compression of the pulmonary vein by lung tumor and lymph nodes has been hopefully ameliorated by IV hydration to improve LV filling, and resulted in better BP. (5) Anxiety disorder Assessment/Plan: She is cooperative and stable, being her same meds as at home and with her significant other, Khari, being able to come to bedside (6) Anemia Qualifiers: Anemia type: iron deficiency Assessment/Plan: She has low iron and TIBC levels, adequate B12 and folate. Will start daily oral iron replacement. Watch for any significant blood loss via hemoptysis. (7) Ulcerative colitis Assessment/Plan: Is quiesced sent, her meds from home were brought into use here. (8) Sepsis Assessment/Plan: Resolved hypotension and resp status - Current Meds Current Meds: Current Medications Generic Name Dose Route Start Last Admin Trade Name Freq PRN Reason Stop Dose Admin Hydrocodone Bitart/Acetaminophen 1 tab 11/22/19 21:00 11/24/19 11:45 [place] 5/325 PO 1 tab QID PRN Administration CANCER PAIN Alprazolam 0.25 - 0.5 mg 11/23/19 09:00 11/24/19 08:08 Xanax PO 0.25 mg DAILY AMADO Administration Atorvastatin Calcium 80 mg 11/22/19 21:00 11/23/19 21:43 Lipitor PO 80 mg QPM AMADO Administration Azithromycin 250 mg 11/23/19 09:00 11/24/19 08:08 Zithromax PO 11/27/19 00:00 250 mg DAILY AMADO Administration Benzonatate 100 mg 11/23/19 18:17 11/24/19 06:11 Tessalon PO 100 mg TID PRN Administration Cough Budesonide 0.5 mg 11/23/19 09:30 11/24/19 07:42 Pulmicort INH 0.5 mg RTBID AMADO Administration Buspirone HCl 20 mg 11/22/19 22:00 11/24/19 06:11 Buspar PO 20 mg TID AMADO Administration Carboxymethylcellulose 1 drops 11/23/19 13:15 11/24/19 06:43 Refresh 1% Ophth Drops EACHEYE 1 applic PRN PRN Administration Dry Eye Citalopram Hydrobromide 40 mg 11/23/19 09:00 11/24/19 08:11 Celexa PO 40 mg DAILY AMADO Administration Enoxaparin Sodium 40 mg 11/23/19 11:00 11/24/19 08:39 Lovenox SUBQ 40 mg DAILY AMADO Administration Fluticasone Propionate 2 sprays 11/23/19 09:00 11/24/19 08:12 Flonase JEANNE 2 sprays DAILY AMADO Administration Guaifenesin 1,200 mg 11/23/19 21:00 11/24/19 08:13 Mucinex PO 1,200 mg BID AMADO Administration Dextrose/Sodium Chloride 1,000 mls @ 100 mls/hr 11/22/19 17:00 11/24/19 12:00 D5ns IV 100 mls/hr .Q10H AMADO Infusion Ceftriaxone Sodium 2 gm/ 100 mls @ 200 mls/hr 11/23/19 09:00 11/24/19 08:45 Sodium Chloride IV Infused DAILY AMADO Infusion Ipratropium [place] 0.5 mg 11/23/19 15:00 11/24/19 11:19 Atrovent INH 0.5 mg RTQID AMADO Administration Levalbuterol HCl 1.25 mg 11/22/19 19:00 11/24/19 00:32 Xopenex INH 1.25 mg RTQ4H PRN Administration SHORTNESS OF AIR/WHEEZING Levalbuterol HCl 1.25 mg 11/22/19 19:00 11/24/19 11:19 Xopenex INH 1.25 mg RTQID AMADO Administration Lorazepam 0.5 mg 11/22/19 17:12 11/24/19 00:14 Ativan Inj (Vial) IVP 0.5 mg Q2H PRN Administration Anxiety Methylprednisolone 40 mg 11/22/19 18:00 11/24/19 11:48 Solu-Medrol (40mg Vial) IVP 40 mg Q6HR AMADO Administration Metoprolol Succinate 25 mg 11/23/19 09:00 11/24/19 08:13 Toprol Xl PO 25 mg DAILY AMADO Administration Montelukast Sodium 10 mg 11/22/19 21:00 11/23/19 21:43 Singulair PO 10 mg QPM AMADO Administration Morphine Sulfate 1 mg 11/22/19 16:59 11/24/19 13:29 Morphine (Carpuject) IVP 1 mg Q3HR PRN Administration Dyspnea Multivitamins 1 tab 11/23/19 09:00 11/24/19 08:14 Theragran PO 1 tab DAILY AMADO Administration (Balsalazide 3,000 mg 11/22/19 21:00 11/23/19 21:44 Disodium [ PO 3,000 mg Balsalazide Disodium QPM AMADO Administration ] 3,000 Mg) (Balsalazide 3,750 mg 11/23/19 09:00 11/24/19 08:11 Disodium [ PO 3,750 mg Balsalazide Disodium DAILY AMADO Administration ] 3,750 Mg) (Mesalamine [ 4 gm 11/22/19 21:00 11/23/19 21:48 Mesalamine] 4 Gm) AK Not Given QPM AMADO Ondansetron HCl 4 mg 11/22/19 16:59 11/23/19 05:36 Zofran Inj IVP 4 mg Q6HR PRN Administration Nausea / Vomiting Pantoprazole Sodium 40 mg 11/23/19 07:00 11/24/19 06:11 Protonix IVP 40 mg QDAC AMADO Administration Saccharomyces Boulardii 250 mg 11/23/19 08:00 11/24/19 08:07 Florastor PO 250 mg BIDWM AMADO Administration Sodium Chloride 10 ml 11/22/19 17:00 11/24/19 08:15 Normal Saline Flush 0.9% IVP 10 ml 0100,0900,1700 AMADO Administration Sodium Chloride 10 ml 11/22/19 16:59 11/24/19 06:11 Normal Saline Flush 0.9% IVP 10 ml PRN PRN Administration NEEDED PER PROVIDER ORDERS Trazodone HCl 100 mg 11/22/19 21:00 11/23/19 21:43 Desyrel PO 100 mg QPM AMADO Administration - Lab Result Fish Bone Diagrams: 11/24/19 04:25 11/24/19 04:25 - Additional Planning My Orders: My Active Orders 11/23/19 13:15 Carboxymethylcellulose 1% Opht [Refresh 1% Ophth Drops] 1 drops EACHEYE PRN PRN 11/23/19 15:00 Ipratropium [Atrovent] 0.5 mg INH RTQID 11/23/19 18:17 Benzonatate [Tessalon] 100 mg PO TID PRN 11/23/19 21:00 guaiFENesin [Mucinex] 1,200 mg PO BID 11/24/19 Evaluate and Treat OT [OT] Routine Evaluate and Treat PT [PT] Routine 11/24/19 08:30 CUL, RESPIRATORY [RM] Urgent 11/24/19 08:45 Vital Signs [RC] Q4HR 11/25/19 05:00 BMP - BASIC METABOLIC PANEL [CHEM] DAILYLAB CBC - COMP BLD CT W/AUTO DIFF [HEME] DAILYLAB Subjective - Subjective Patient Reports: Feeling Better (No new complaints per Khari, who is allowed to come at bedside due to her psych Hx.), Shortness of Breath, Other (Gets more short of breath and tearful when she is very anxious) Nursing Reports: Other (She refused to work with physical therapy who tried twice today.) Objective Vital Signs: Vital Signs - 24 hr 11/23/19 11/23/19 11/23/19 14:00 15:00 15:30 Temperature Heart Rate 113 H Heart Rate [ 122 H 118 H Monitoring electrodes] Respiratory 13 18 18 Rate Blood Pressure 106/54 L 103/57 L [Left Brachial artery] O2 Saturation 81 L 82 L 11/23/19 11/23/19 11/23/19 15:34 16:00 17:00 Temperature 36.7 C 36.7 C Heart Rate Heart Rate [ 121 H 115 H Monitoring electrodes] Respiratory 21 16 Rate Blood Pressure 118/77 111/54 L [Left Brachial artery] O2 Saturation 90 L 94 11/23/19 11/23/19 11/23/19 18:00 19:00 19:25 Temperature Heart Rate 108 H Heart Rate [ 115 H 111 H Monitoring electrodes] Respiratory 19 16 18 Rate Blood Pressure 115/51 L 126/61 [Left Brachial artery] O2 Saturation 91 L 90 L 11/23/19 11/23/19 11/23/19 19:57 21:00 22:00 Temperature 37 C Heart Rate Heart Rate [ 111 H 110 H 113 H Monitoring electrodes] Respiratory 24 18 19 Rate Blood Pressure 120/55 L 109/52 L 125/71 [Left Brachial artery] O2 Saturation 91 L 92 85 L 11/23/19 11/24/19 11/24/19 23:00 00:00 00:30 Temperature 37 C Heart Rate 91 Heart Rate [ 99 93 Monitoring electrodes] Respiratory 12 16 16 Rate Blood Pressure 113/53 L 118/58 L [Left Brachial artery] O2 Saturation 95 96 11/24/19 11/24/19 11/24/19 01:00 02:00 03:00 Temperature Heart Rate Heart Rate [ 99 95 94 Monitoring electrodes] Respiratory 15 12 12 Rate Blood Pressure 110/54 L 103/51 L 109/49 L [Left Brachial artery] O2 Saturation 93 95 96 11/24/19 11/24/19 11/24/19 04:00 05:00 06:00 Temperature 36.6 C Heart Rate Heart Rate [ 95 89 120 H Monitoring electrodes] Respiratory 12 12 24 Rate Blood Pressure 110/51 L 104/54 L 107/70 [Left Brachial artery] O2 Saturation 95 93 90 L 11/24/19 11/24/19 11/24/19 07:00 07:43 08:00 Temperature 37 C Heart Rate 96 Heart Rate [ 91 97 Monitoring electrodes] Respiratory 13 16 17 Rate Blood Pressure 112/58 L 114/60 [Left Brachial artery] O2 Saturation 92 98 11/24/19 11/24/19 11:19 12:50 Temperature 36.4 C L Heart Rate 105 H Heart Rate [ 112 H Monitoring electrodes] Respiratory 20 22 Rate Blood Pressure 108/64 [Left Brachial artery] O2 Saturation 88 L Oxygen O2 Source Oxymizer Oxygen Flow Rate 15 I&O (Last 24 Hrs): Intake and Output Totals x24h 11/22/19 11/23/19 11/24/19 23:59 23:59 23:59 Intake Total 890 4350.000 2525 Output Total 1075 1376 1100 Balance -185 2974.000 1425 General: Alert, Oriented x3 HEENT: Mucous membr. moist/pink, Other (Cushingoid) Neck: Supple Neuro: Alert, Non Focal Cardiovascular: Regular rate Respiratory: Other (Poor air movement everywhere) Abdomen: Soft Extremities: No edema - Results Results: Laboratory Results WBC 14.5 x10^3/uL (4.8-10.8) H 11/24/19 04:25 RBC 3.07 10^6/uL (4.20-5.40) L 11/24/19 04:25 Hgb 8.6 g/dL (12.0-16.0) L 11/24/19 04:25 Hct 28.4 % (37.0-47.0) L 11/24/19 04:25 MCV 92.5 fL (81.0-99.0) 11/24/19 04:25 MCH 28.0 pg (27.0-31.0) 11/24/19 04:25 MCHC 30.3 g/dL (32.0-36.0) L 11/24/19 04:25 RDW 16.7 % (12.0-15.0) H 11/24/19 04:25 Plt Count 385 10^3/uL (130-450) 11/24/19 04:25 MPV 8.5 fL (7.9-10.8) 11/24/19 04:25 Neut # (Auto) 13.2 10^3/uL (1.5-6.6) H 11/24/19 04:25 Lymph # (Auto) 0.6 10^3/uL (1.5-3.5) L 11/24/19 04:25 [place] # (Auto) 0.5 10^3/uL (0.0-1.0) 11/24/19 04:25 Eos # (Auto) 0.0 10^3/uL (0.0-0.7) 11/24/19 04:25 Baso # (Auto) 0.0 10^3/uL (0.0-0.1) 11/24/19 04:25 Absolute Nucleated RBC 0.00 x10^3/uL 11/24/19 04:25 Nucleated RBC % 0.0 /100WBC 11/24/19 04:25 PT 12.4 secs (9.9-12.6) 11/22/19 17:30 INR 1.1 (0.8-1.2) 11/22/19 17:30 Bld Gas Analysis Time 1311 11/22/19 13:07 Sample Site RIGHT BRACHIAL 11/22/19 13:07 ABG pH 7.47 (7.35-7.45) H 11/22/19 13:07 ABG pCO2 37 mmHg (34-45) 11/22/19 13:07 ABG pO2 66 mmHg (80-100) L 11/22/19 13:07 ABG HCO3 26.3 mmol/L (22.0-26.0) H 11/22/19 13:07 ABG Total CO2 27.5 MMOL/L (21.0-29.0) 11/22/19 13:07 ABG O2 Saturation 93 % (94-98) L 11/22/19 13:07 ABG Base Excess 2.7 mmol/L (-2.0-3.0) 11/22/19 13:07 Ugo Test NOT APPLICABLE 11/22/19 13:07 O2 Delivery Device NON REBREATHER MASK 11/22/19 13:07 O2 Liters/Min 15.00 LPM 11/22/19 13:07 Sodium 139 mmol/L (135-145) 11/24/19 04:25 Potassium 3.8 mmol/L (3.5-5.0) 11/24/19 04:25 Chloride 108 mmol/L (101-111) 11/24/19 04:25 Carbon Dioxide 26 mmol/L (21-32) 11/24/19 04:25 Anion Gap 5.0 (6-13) L 11/24/19 04:25 BUN 10 mg/dL (6-20) 11/24/19 04:25 Creatinine 0.6 mg/dL (0.4-1.0) 11/24/19 04:25 Estimated GFR (MDRD) 101 (>89) 11/24/19 04:25 Glucose 208 mg/dL (70-100) H 11/24/19 04:25 Lactic Acid 0.9 mmol/L (0.5-2.2) 11/22/19 17:30 Calcium 8.0 mg/dL (8.5-10.3) L 11/24/19 04:25 Phosphorus 4.0 mg/dL (2.5-4.6) 11/23/19 05:10 Magnesium 2.1 mg/dL (1.7-2.8) 11/23/19 05:10 Iron 22 ug/dL (28-170) L 11/23/19 05:10 TIBC 269 ug/dL (250-450) 11/23/19 05:10 % Saturation 8 % (20-50) L 11/23/19 05:10 Transferrin 192 mg/dL (192-382) 11/23/19 05:10 Total Bilirubin 0.7 mg/dL (0.2-1.0) 11/22/19 12:49 AST 26 IU/L (10-42) 11/22/19 12:49 ALT 15 IU/L (10-60) 11/22/19 12:49 Alkaline Phosphatase 61 IU/L (42-121) 11/22/19 12:49 Troponin I High Sens 2.8 ng/L (2.3-14.8) 11/22/19 17:30 B-Natriuretic Peptide 88 pg/mL (5-100) 11/22/19 17:30 Total Protein 6.4 g/dL (6.7-8.2) L 11/22/19 12:49 Albumin 3.3 g/dL (3.2-5.5) 11/22/19 12:49 Globulin 3.1 g/dL (2.1-4.2) 11/22/19 12:49 Albumin/Globulin Ratio 1.1 (1.0-2.2) 11/22/19 12:49 Lipase 26 U/L (22-51) 11/22/19 12:49 Vitamin B12 446 pg/mL (180-914) 11/23/19 05:10 Folate 16.79 ng/mL (5.90 - >24.8) 11/23/19 05:10 TSH 0.43 uIU/mL (0.34-5.60) 11/22/19 17:30 Urine Color YELLOW 11/22/19 21:44 Urine Clarity CLEAR (CLEAR) 11/22/19 21:44 Urine pH 6.0 PH (5.0-7.5) 11/22/19 21:44 Ur Specific [place] <=1.005 (1.002-1.030) 11/22/19 21:44 Urine Protein NEGATIVE mg/dL (NEGATIVE) 11/22/19 21:44 Urine Glucose (UA) NEGATIVE mg/dL (NEGATIVE) 11/22/19 21:44 Urine Ketones NEGATIVE mg/dL (NEGATIVE) 11/22/19 21:44 Urine Occult Blood NEGATIVE (NEGATIVE) 11/22/19 21:44 Urine Nitrite POSITIVE (NEGATIVE) H 11/22/19 21:44 Urine Bilirubin NEGATIVE (NEGATIVE) 11/22/19 21:44 Urine Urobilinogen 0.2 (NORMAL) E.U./dL (NORMAL) 11/22/19 21:44 Ur Leukocyte Esterase SMALL (NEGATIVE) H 11/22/19 21:44 Urine RBC None Seen /HPF (0-5) 11/22/19 21:44 Urine WBC 6-10 /HPF (0-5) H 11/22/19 21:44 Ur Squamous Epith Cells NONE SEEN (<= Few) 11/22/19 21:44 Urine Bacteria Few /HPF (None Seen) 11/22/19 21:44 Ur Microscopic Review INDICATED 11/22/19 21:44 Urine Culture Comments INDICATED 11/22/19 21:44 Nasal Screen MRSA (PCR) NEGATIVE (NEGATIVE) 11/22/19 18:41 Coronavirus (PCR) NEGATIVE 11/22/19 18:41
[2019-11-24] MEDS ORDERED: FUROSEMIDE 40 MG/4 ML VIAL IVP STA (20:06)
[2019-11-24] MEDS: ATORVASTATIN 40 MG TABLET PO SCH (21:03)
[2019-11-24] MEDS: traZODone 50 MG TABLET PO SCH (21:04)
[2019-11-24] MEDS: MONTELUKAST 10 MG TABLET PO SCH (21:04)
--- NOTE | 2019-11-24 21:25 | XRAY Report ---
Reason: dyspnea Procedure Date: 11/24/2019 Accession Number: [id number] / [id number] Procedure: XR - Chest 1 View X-Ray CPT Code: 82524 Final Report FULL RESULT: EXAM: CHEST RADIOGRAPHY EXAM DATE: 11/24/2019 08:36 PM. CLINICAL HISTORY: Dyspnea. COMPARISON: CHEST 1 VIEW 11/22/2019 12:34 PM. TECHNIQUE: 1 view. FINDINGS: Lungs/Pleura: There is a persistent interstitial infiltrate in the left lower lobe and a portion of the lingula. There is also a slightly more conspicuous interstitial infiltrates in the right lower lobe. There has been no improvement. There are no definite pleural effusions. Mediastinum: The heart is not enlarged. Other: None. IMPRESSION: 1. Persistent bilateral interstitial infiltrates. No significant improvement. RADIA
[2019-11-25] MEDS: SODIUM CHLORIDE FLUSH 0.9% 10 ML SYRINGE IVP SCH ×3 (02:06→16:46)
[2019-11-25] MEDS: MORPHINE 2 MG/ML CARPUJECT IVP PRN ×4 (02:06→15:09)
[2019-11-25] MEDS: LORazepam 2 MG/ML VIAL IVP PRN ×2 (02:21→21:53)
[2019-11-25] MEDS: SODIUM CHLORIDE FLUSH 0.9% 10 ML SYRINGE IVP PRN ×6 (02:22→21:54)
[2019-11-25 05:35] LABS: BASOPHILS % (AUTO) 0.1 %; HGB - HEMOGLOBIN 8.7 g/dL (12.0-16.0); LYMPHOCYTES # (AUTO) 0.8 10^3/uL (1.5-3.5); LYMPHOCYTES % (AUTO) 5.5 %; MEAN CORPUSCULAR HEMOGLOBIN 27.4 pg (27.0-31.0); MEAN CORPUSCULAR HGB CONC 30.1 g/dL (32.0-36.0); MEAN CORPUSCULAR VOLUME 91.2 fL (81.0-99.0); MEAN PLATELET VOLUME 8.6 fL (7.9-10.8); MONOCYTES # (AUTO) 0.4 10^3/uL (0.0-1.0); MONOCYTES % (AUTO) 2.9 %; NEUTROPHILS # (AUTO) 12.9 10^3/uL (1.5-6.6); NEUTROPHILS % (AUTO) 89.5 %; PLT - PLATELET COUNT 389 10^3/uL (130-450); RED BLOOD COUNT 3.17 10^6/uL (4.20-5.40); RED CELL DISTRIBUTION WIDTH 16.4 % (12.0-15.0); WHITE BLOOD COUNT 14.4 x10^3/uL (4.8-10.8)
[2019-11-25 05:47] LABS: CALCIUM 8.2 mg/dL (8.5-10.3); CREATININE 0.6 mg/dL (0.4-1.0)
[2019-11-25] MEDS: BENZONATATE 100 MG CAPSULE PO PRN (06:21)
[2019-11-25] MEDS: busPIRone 5 MG TABLET PO SCH ×3 (06:21→20:40)
[2019-11-25] MEDS: methylPREDNISolone SUCCINATE 40 MG/ML VIAL IVP SCH ×3 (06:21→17:51)
[2019-11-25] MEDS: PANTOPRAZOLE 40 MG VIAL IVP SCH (06:27)
[2019-11-25] MEDS: LEVALBUTEROL 1.25 MG/3 ML NEB INH SCH ×4 (07:40→19:34)
[2019-11-25] MEDS: IPRATROPIUM 0.2 MG/ML NEB INH SCH ×4 (07:40→19:34)
[2019-11-25] MEDS: BUDESONIDE 0.5 MG/2 ML NEB INH SCH ×2 (07:40→19:34)
[2019-11-25] MEDS: SACCHAROMYCES BOULARDII 250 MG CAPSULE PO SCH ×2 (08:24→17:00)
[2019-11-25] MEDS: ALPRAZolam 0.25 MG TABLET PO SCH (08:25)
[2019-11-25] MEDS: BALSALAZIDE DISODIUM PO SCH ×2 (08:26→20:41)
[2019-11-25] MEDS: AZITHROMYCIN 250 MG TABLET PO SCH (08:26)
[2019-11-25] MEDS: CITALOPRAM 10 MG TABLET PO SCH (08:26)
[2019-11-25] MEDS: FLUTICASONE NASAL SPRAY NAS SCH (08:27)
[2019-11-25] MEDS: MULTIVITAMIN TABLET PO SCH (08:28)
[2019-11-25] MEDS: METOPROLOL SUCCINATE 25 MG TABLET PO SCH (08:28)
[2019-11-25] MEDS: guaiFENesin 600 MG TABLET PO SCH ×2 (08:28→20:39)
[2019-11-25] MEDS: ENOXAPARIN 40 MG/0.4 ML SYRINGE SUBQ SCH (08:30)
[2019-11-25] MEDS: cefTRIAXone 2 GM in SODIUM CHLORIDE 0.9% MINIBAG 100 ML IV SCH (08:30)
[2019-11-25] MEDS: HYDROcod/ACETAM 5/325 MG TABLET PO PRN ×2 (12:35→16:45)
--- NOTE | 2019-11-25 13:00 | PROVIDER PROGRESS NOTE ---
Assessment/Plan - Problem List (1) Acute and chronic respiratory failure with hypoxia Assessment/Plan: Patient had worsening hypoxia last evening when she became anxious when told that she will be moved out of the ICU. She needed increased FiO2. Continue with supplemental oxygen with goal of O2 saturation 88%. (2) CAP (community acquired pneumonia) Assessment/Plan: Continue empiric Zithromax and ceftriaxone. Await sputum culture final results. (3) COPD exacerbation Assessment/Plan: She has slightly better air movement throughout, no wheezes, but diminished breath sounds. Continue with IV steroids, nebs, Singulair, Mucinex and Tessalon and supplemental oxygen (4) Lung cancer Qualifiers: Laterality: unspecified laterality Lung location: unspecified part of lung Qualified Code(s): C34.90 - Malignant neoplasm of unspecified part of unspecified bronchus or lung Assessment/Plan: I suspect this pneumonia is postobstructive. She is not a candidate for bronc or any other lung cancer treatment. Khari requested that Palliative care start. Will place consult for Palliatoive Care with Janey Marcelino NP, for , today is Tue and tomorrow is a holiday, . (5) Anxiety disorder Assessment/Plan: This is very severe according to past chart records and according to her significant other. He needs to be in the room "when any changes are made in her management". He states that he knows how to "break it to her".. 10 you with all her anxiolytic meds while here. (6) Anemia Qualifiers: Anemia type: iron deficiency Assessment/Plan: Iron replacement was started (7) Ulcerative colitis Assessment/Plan: Her non-formulary home meds were brought in to continue while here - Current Meds Current Meds: Current Medications Generic Name Dose Route Start Last Admin Trade Name Freq PRN Reason Stop Dose Admin Hydrocodone Bitart/Acetaminophen 1 tab 11/22/19 21:00 11/25/19 12:35 [place] 5/325 PO 1 tab QID PRN Administration CANCER PAIN Alprazolam 0.25 - 0.5 mg 11/23/19 09:00 11/25/19 08:25 Xanax PO 0.25 mg DAILY AMADO Administration Atorvastatin Calcium 80 mg 11/22/19 21:00 11/24/19 21:03 Lipitor PO 80 mg QPM AMADO Administration Azithromycin 250 mg 11/23/19 09:00 11/25/19 08:26 Zithromax PO 11/27/19 00:00 250 mg DAILY AMADO Administration Benzonatate 100 mg 11/23/19 18:17 11/25/19 06:21 Tessalon PO 100 mg TID PRN Administration Cough Budesonide 0.5 mg 11/23/19 09:30 11/25/19 07:40 Pulmicort INH 0.5 mg RTBID AMADO Administration Buspirone HCl 20 mg 11/22/19 22:00 11/25/19 06:21 Buspar PO 20 mg TID AMADO Administration Carboxymethylcellulose 1 drops 11/23/19 13:15 11/24/19 06:43 Refresh 1% Ophth Drops EACHEYE 1 applic PRN PRN Administration Dry Eye Citalopram Hydrobromide 40 mg 11/23/19 09:00 11/25/19 08:26 Celexa PO 40 mg DAILY AMADO Administration Enoxaparin Sodium 40 mg 11/23/19 11:00 11/25/19 08:30 Lovenox SUBQ 40 mg DAILY AMADO Administration Fluticasone Propionate 2 sprays 11/23/19 09:00 11/25/19 08:27 Flonase JEANNE 2 sprays DAILY AMADO Administration Guaifenesin 1,200 mg 11/23/19 21:00 11/25/19 08:28 Mucinex PO 1,200 mg BID AMADO Administration Ceftriaxone Sodium 2 gm/ 100 mls @ 200 mls/hr 11/23/19 09:00 11/25/19 09:00 Sodium Chloride IV Infused DAILY AMADO Infusion Ipratropium [place] 0.5 mg 11/23/19 15:00 11/25/19 11:58 Atrovent INH 0.5 mg RTQID AMADO Administration Levalbuterol HCl 1.25 mg 11/22/19 19:00 11/24/19 00:32 Xopenex INH 1.25 mg RTQ4H PRN Administration SHORTNESS OF AIR/WHEEZING Levalbuterol HCl 1.25 mg 11/22/19 19:00 11/25/19 11:58 Xopenex INH 1.25 mg RTQID AMADO Administration Lorazepam 0.5 mg 11/22/19 17:12 11/25/19 02:21 Ativan Inj (Vial) IVP 0.5 mg Q2H PRN Administration Anxiety Methylprednisolone 40 mg 11/22/19 18:00 11/25/19 12:33 Solu-Medrol (40mg Vial) IVP 40 mg Q6HR AMADO Administration Metoprolol Succinate 25 mg 11/23/19 09:00 11/25/19 08:28 Toprol Xl PO 25 mg DAILY AMADO Administration Montelukast Sodium 10 mg 11/22/19 21:00 11/24/19 21:04 Singulair PO 10 mg QPM AMADO Administration Morphine Sulfate 1 mg 11/22/19 16:59 11/25/19 10:35 Morphine (Carpuject) IVP 1 mg Q3HR PRN Administration Dyspnea Multivitamins 1 tab 11/23/19 09:00 11/25/19 08:28 Theragran PO 1 tab DAILY AMADO Administration (Balsalazide 3,000 mg 11/22/19 21:00 11/24/19 21:10 Disodium [ PO Not Given Balsalazide Disodium QPM AMADO ] 3,000 Mg) (Balsalazide 3,750 mg 11/23/19 09:00 11/25/19 08:26 Disodium [ PO 3,750 mg Balsalazide Disodium DAILY AMADO Administration ] 3,750 Mg) (Mesalamine [ 4 gm 11/22/19 21:00 11/24/19 21:10 Mesalamine] 4 Gm) [place] Not Given QPM AMADO Ondansetron HCl 4 mg 11/22/19 16:59 11/23/19 05:36 Zofran Inj IVP 4 mg Q6HR PRN Administration Nausea / Vomiting Pantoprazole Sodium 40 mg 11/23/19 07:00 11/25/19 06:27 Protonix IVP 40 mg QDAC AMADO Administration Saccharomyces Boulardii 250 mg 11/23/19 08:00 11/25/19 08:24 Florastor PO 250 mg BIDWM AMADO Administration Sodium Chloride 10 ml 11/22/19 17:00 11/25/19 08:29 Normal Saline Flush 0.9% IVP 10 ml 0100,0900,1700 AMADO Administration Sodium Chloride 10 ml 11/22/19 16:59 11/25/19 06:28 Normal Saline Flush 0.9% IVP 10 ml PRN PRN Administration NEEDED PER PROVIDER ORDERS Trazodone HCl 100 mg 11/22/19 21:00 11/24/19 21:04 Desyrel PO 100 mg QPM AMADO Administration - Lab Result Fish Bone Diagrams: 11/25/19 05:15 11/25/19 05:15 Subjective - Subjective Patient Reports: Feeling Better, Other (Khari and I spoke outside of her room, she has no new physical complaints but said the PT was making her get OOB when she didn't want to.) Objective Vital Signs: Vital Signs - 24 hr 11/24/19 11/24/19 11/24/19 15:14 16:20 19:24 Temperature 36.9 C Heart Rate 100 111 H Heart Rate [ 100 Monitoring electrodes] Respiratory 18 17 23 Rate Blood Pressure 120/60 [Left Brachial artery] O2 Saturation 88 L 11/24/19 11/24/19 11/25/19 20:31 23:49 03:45 Temperature 37.1 C 37.0 C 36.9 C Heart Rate Heart Rate [ 105 H 95 98 Monitoring electrodes] Respiratory 18 16 18 Rate Blood Pressure 101/66 115/68 119/71 [Left Brachial artery] O2 Saturation 90 L 94 92 11/25/19 11/25/19 11/25/19 07:40 08:30 11:59 Temperature 37.4 C Heart Rate 101 H 94 Heart Rate [ 111 H Monitoring electrodes] Respiratory 18 22 18 Rate Blood Pressure 129/57 L [Left Brachial artery] O2 Saturation 87 L 11/25/19 12:37 Temperature Heart Rate Heart Rate [ 105 H Monitoring electrodes] Respiratory 22 Rate Blood Pressure 121/65 [Left Brachial artery] O2 Saturation 85 L Oxygen O2 Source Oxymizer Oxygen Flow Rate 15 I&O (Last 24 Hrs): Intake and Output Totals x24h 11/23/19 11/24/19 11/25/19 23:59 23:59 23:59 Intake Total 4350.000 3750 320 Output Total 1376 3000 725 Balance 2974.000 750 -405 General: Alert, Oriented x3 HEENT: Mucous membr. moist/pink, Other (On O2 via oximizer, Cushingoid appearing and face flushed) Neuro: Alert, Non Focal Cardiovascular: Regular rate Respiratory: No respiratory distress, Other (Diminished breath sounds everywhere, but no wheezing) Abdomen: Soft Extremities: No edema - Results Results: Laboratory Results WBC 14.4 x10^3/uL (4.8-10.8) H 11/25/19 05:15 RBC 3.17 10^6/uL (4.20-5.40) L 11/25/19 05:15 Hgb 8.7 g/dL (12.0-16.0) L 11/25/19 05:15 Hct 28.9 % (37.0-47.0) L 11/25/19 05:15 MCV 91.2 fL (81.0-99.0) 11/25/19 05:15 MCH 27.4 pg (27.0-31.0) 11/25/19 05:15 MCHC 30.1 g/dL (32.0-36.0) L 11/25/19 05:15 RDW 16.4 % (12.0-15.0) H 11/25/19 05:15 Plt Count 389 10^3/uL (130-450) 11/25/19 05:15 MPV 8.6 fL (7.9-10.8) 11/25/19 05:15 Neut # (Auto) 12.9 10^3/uL (1.5-6.6) H 11/25/19 05:15 Lymph # (Auto) 0.8 10^3/uL (1.5-3.5) L 11/25/19 05:15 [place] # (Auto) 0.4 10^3/uL (0.0-1.0) 11/25/19 05:15 Eos # (Auto) 0.0 10^3/uL (0.0-0.7) 11/25/19 05:15 Baso # (Auto) 0.0 10^3/uL (0.0-0.1) 11/25/19 05:15 Absolute Nucleated RBC 0.00 x10^3/uL 11/25/19 05:15 Nucleated RBC % 0.0 /100WBC 11/25/19 05:15 PT 12.4 secs (9.9-12.6) 11/22/19 17:30 INR 1.1 (0.8-1.2) 11/22/19 17:30 Bld Gas Analysis Time 1311 11/22/19 13:07 Sample Site RIGHT BRACHIAL 11/22/19 13:07 ABG pH 7.47 (7.35-7.45) H 11/22/19 13:07 ABG pCO2 37 mmHg (34-45) 11/22/19 13:07 ABG pO2 66 mmHg (80-100) L 11/22/19 13:07 ABG HCO3 26.3 mmol/L (22.0-26.0) H 11/22/19 13:07 ABG Total CO2 27.5 MMOL/L (21.0-29.0) 11/22/19 13:07 ABG O2 Saturation 93 % (94-98) L 11/22/19 13:07 ABG Base Excess 2.7 mmol/L (-2.0-3.0) 11/22/19 13:07 Ugo Test NOT APPLICABLE 11/22/19 13:07 O2 Delivery Device NON REBREATHER MASK 11/22/19 13:07 O2 Liters/Min 15.00 LPM 11/22/19 13:07 Sodium 140 mmol/L (135-145) 11/25/19 05:15 Potassium 3.2 mmol/L (3.5-5.0) L 11/25/19 05:15 Chloride 107 mmol/L (101-111) 11/25/19 05:15 Carbon Dioxide 27 mmol/L (21-32) 11/25/19 05:15 Anion Gap 6.0 (6-13) 11/25/19 05:15 BUN 17 mg/dL (6-20) 11/25/19 05:15 Creatinine 0.6 mg/dL (0.4-1.0) 11/25/19 05:15 Estimated GFR (MDRD) 101 (>89) 11/25/19 05:15 Glucose 135 mg/dL (70-100) H 11/25/19 05:15 Lactic Acid 0.9 mmol/L (0.5-2.2) 11/22/19 17:30 Calcium 8.2 mg/dL (8.5-10.3) L 11/25/19 05:15 Phosphorus 4.0 mg/dL (2.5-4.6) 11/23/19 05:10 Magnesium 2.1 mg/dL (1.7-2.8) 11/23/19 05:10 Iron 22 ug/dL (28-170) L 11/23/19 05:10 TIBC 269 ug/dL (250-450) 11/23/19 05:10 % Saturation 8 % (20-50) L 11/23/19 05:10 Transferrin 192 mg/dL (192-382) 11/23/19 05:10 Total Bilirubin 0.7 mg/dL (0.2-1.0) 11/22/19 12:49 AST 26 IU/L (10-42) 11/22/19 12:49 ALT 15 IU/L (10-60) 11/22/19 12:49 Alkaline Phosphatase 61 IU/L (42-121) 11/22/19 12:49 Troponin I High Sens 2.8 ng/L (2.3-14.8) 11/22/19 17:30 B-Natriuretic Peptide 88 pg/mL (5-100) 11/22/19 17:30 Total Protein 6.4 g/dL (6.7-8.2) L 11/22/19 12:49 Albumin 3.3 g/dL (3.2-5.5) 11/22/19 12:49 Globulin 3.1 g/dL (2.1-4.2) 11/22/19 12:49 Albumin/Globulin Ratio 1.1 (1.0-2.2) 11/22/19 12:49 Lipase 26 U/L (22-51) 11/22/19 12:49 Vitamin B12 446 pg/mL (180-914) 11/23/19 05:10 Folate 16.79 ng/mL (5.90 - >24.8) 11/23/19 05:10 TSH 0.43 uIU/mL (0.34-5.60) 11/22/19 17:30 Urine Color YELLOW 11/22/19 21:44 Urine Clarity CLEAR (CLEAR) 11/22/19 21:44 Urine pH 6.0 PH (5.0-7.5) 11/22/19 21:44 Ur Specific [place] <=1.005 (1.002-1.030) 11/22/19 21:44 Urine Protein NEGATIVE mg/dL (NEGATIVE) 11/22/19 21:44 Urine Glucose (UA) NEGATIVE mg/dL (NEGATIVE) 11/22/19 21:44 Urine Ketones NEGATIVE mg/dL (NEGATIVE) 11/22/19 21:44 Urine Occult Blood NEGATIVE (NEGATIVE) 11/22/19 21:44 Urine Nitrite POSITIVE (NEGATIVE) H 11/22/19 21:44 Urine Bilirubin NEGATIVE (NEGATIVE) 11/22/19 21:44 Urine Urobilinogen 0.2 (NORMAL) E.U./dL (NORMAL) 11/22/19 21:44 Ur Leukocyte Esterase SMALL (NEGATIVE) H 11/22/19 21:44 Urine RBC None Seen /HPF (0-5) 11/22/19 21:44 Urine WBC 6-10 /HPF (0-5) H 11/22/19 21:44 Ur Squamous Epith Cells NONE SEEN (<= Few) 11/22/19 21:44 Urine Bacteria Few /HPF (None Seen) 11/22/19 21:44 Ur Microscopic Review INDICATED 11/22/19 21:44 Urine Culture Comments INDICATED 11/22/19 21:44 Nasal Screen MRSA (PCR) NEGATIVE (NEGATIVE) 11/22/19 18:41 Coronavirus (PCR) NEGATIVE 11/22/19 18:41
[2019-11-25] MEDS: MONTELUKAST 10 MG TABLET PO SCH (20:39)
[2019-11-25] MEDS: ATORVASTATIN 40 MG TABLET PO SCH (20:39)
[2019-11-25] MEDS: traZODone 50 MG TABLET PO SCH (20:43)
[2019-11-26] MEDS: SODIUM CHLORIDE FLUSH 0.9% 10 ML SYRINGE IVP SCH ×5 (00:13→23:35)
[2019-11-26] MEDS: methylPREDNISolone SUCCINATE 40 MG/ML VIAL IVP SCH ×5 (00:13→23:35)
[2019-11-26] MEDS: MORPHINE 2 MG/ML CARPUJECT IVP PRN ×5 (00:25→19:46)
[2019-11-26] MEDS: SODIUM CHLORIDE FLUSH 0.9% 10 ML SYRINGE IVP PRN ×3 (05:08→06:11)
[2019-11-26] MEDS: LORazepam 2 MG/ML VIAL IVP PRN ×4 (05:08→23:35)
[2019-11-26] MEDS: busPIRone 5 MG TABLET PO SCH ×3 (06:11→21:05)
[2019-11-26] MEDS: PANTOPRAZOLE 40 MG VIAL IVP SCH (06:11)
[2019-11-26] MEDS ORDERED: POTASSIUM CHLORIDE 20 MEQ TABLET PO SCH (08:14)
[2019-11-26] MEDS: SACCHAROMYCES BOULARDII 250 MG CAPSULE PO SCH ×2 (08:44→16:55)
[2019-11-26] MEDS: MULTIVITAMIN TABLET PO SCH (08:45)
[2019-11-26] MEDS: guaiFENesin 600 MG TABLET PO SCH ×2 (08:45→21:02)
[2019-11-26] MEDS: METOPROLOL SUCCINATE 25 MG TABLET PO SCH (08:45)
[2019-11-26] MEDS: AZITHROMYCIN 250 MG TABLET PO SCH (08:46)
[2019-11-26] MEDS: ALPRAZolam 0.25 MG TABLET PO SCH (08:47)
[2019-11-26] MEDS: CITALOPRAM 10 MG TABLET PO SCH (08:48)
[2019-11-26] MEDS: cefTRIAXone 2 GM in SODIUM CHLORIDE 0.9% MINIBAG 100 ML IV SCH (08:50)
[2019-11-26] MEDS: ENOXAPARIN 40 MG/0.4 ML SYRINGE SUBQ SCH (08:50)
[2019-11-26] MEDS: FLUTICASONE NASAL SPRAY NAS SCH (08:54)
[2019-11-26] MEDS: BALSALAZIDE DISODIUM PO SCH ×2 (08:57→21:04)
[2019-11-26] MEDS: HYDROcod/ACETAM 5/325 MG TABLET PO PRN ×2 (09:11→21:03)
--- NOTE | 2019-11-26 12:57 | PROVIDER PROGRESS NOTE ---
Assessment/Plan - Problem List (1) Acute and chronic respiratory failure with hypoxia Assessment/Plan: She was on 6 L of oxygen at home. Here she has required between 7 and 9 L. It takes her 5 to 10 minutes with activity such as getting in and out of bed, to recover from desaturations of 77% to the high 80% range. She does have an home oxygenator that can go up to 10 L. (2) CAP (community acquired pneumonia) Assessment/Plan: I suspect this is a postobstructive pneumonia from her untreated lung cancer with tumors and adenopathy seen on chest x-ray. The sputum culture has returned today growing E. coli. She was on empiric Zithromax and iv Ceftriaxone and clinically is improving. Will stop the Zithromax. Continue IV ceftriaxone and transition to oral anti biotic on the day of discharge. She also needs management of pulmonary toilet. She is getting Mucinex and prn Tessalon [place]. She may need a chest physical therapy vest. (3) COPD exacerbation Assessment/Plan: She has better air movement and an improved expiratory phase since yesterday, and wheezing only heard on the left. Continue with nebs, steroids, the new Singulair, Mucinex. She will need to be discharged with oral steroids with a tapering down schedule. (4) Lung cancer Qualifiers: Laterality: unspecified laterality Lung location: unspecified part of lung Qualified Code(s): C34.90 - Malignant neoplasm of unspecified part of unspecified bronchus or lung Assessment/Plan: This was diagnosed with biopsy 2 years ago. She never received any treatment. Her significant other and DPOA, Khari, has requested Palliative Care to start being involved. I will put in a request for a Palliative Care consult while she is here, which will be tomorrow, today is a holiday, . Khari also requests that she get a hospital bed when she gets home. I told social work of that request. Social work responded that it is only covered for hospice patients and they will call Khari and tell him to reach out to [employer]. (5) Anxiety disorder Assessment/Plan: She has extreme anxiety. Any change in medical status or any updates need to be given to Khari, and none to the patient, as per her request. Then Khari "breaks the news to her". He has been allowed to visit daily (during this this time of restricted visitors due to COVID), because of her extreme anxiety. She does best with cooperating with PT when Khari is present, for example. All her anxiolytic medications have been continued while here. (6) Anemia Qualifiers: Anemia type: iron deficiency Assessment/Plan: She was started on oral iron replacement and tolerating it. (7) Ulcerative colitis Assessment/Plan: Her non-formulary meds were brought in from home, to use while here. There has been no ulcerative colitis flair. (8) Sepsis Assessment/Plan: Hypotension and tachycardia have resolved. - Current Meds Current Meds: Current Medications Generic Name Dose Route Start Last Admin Trade Name Freq PRN Reason Stop Dose Admin Hydrocodone Bitart/Acetaminophen 1 tab 11/22/19 21:00 11/26/19 09:11 [place] 5/325 PO 1 tab QID PRN Administration CANCER PAIN Alprazolam 0.25 - 0.5 mg 11/23/19 09:00 11/26/19 08:47 Xanax PO 0.25 mg DAILY AMADO Administration Atorvastatin Calcium 80 mg 11/22/19 21:00 11/25/19 20:39 Lipitor PO 80 mg QPM AMADO Administration Benzonatate 100 mg 11/23/19 18:17 11/25/19 06:21 Tessalon PO 100 mg TID PRN Administration Cough Budesonide 0.5 mg 11/23/19 09:30 11/25/19 19:34 Pulmicort INH 0.5 mg RTBID AMADO Administration Buspirone HCl 20 mg 11/22/19 22:00 11/26/19 06:11 Buspar PO 20 mg TID AMADO Administration Carboxymethylcellulose 1 drops 11/23/19 13:15 11/24/19 06:43 Refresh 1% Ophth Drops EACHEYE 1 applic PRN PRN Administration Dry Eye Citalopram Hydrobromide 40 mg 11/23/19 09:00 11/26/19 08:48 Celexa PO 40 mg DAILY AMADO Administration Enoxaparin Sodium 40 mg 11/23/19 11:00 11/26/19 08:50 Lovenox SUBQ 40 mg DAILY AMADO Administration Fluticasone Propionate 2 sprays 11/23/19 09:00 11/26/19 08:54 Flonase JEANNE 4 sprays DAILY AMADO Administration Guaifenesin 1,200 mg 11/23/19 21:00 11/26/19 08:45 Mucinex PO 1,200 mg BID AMADO Administration Ceftriaxone Sodium 2 gm/ 100 mls @ 200 mls/hr 11/23/19 09:00 11/26/19 08:50 Sodium Chloride IV 200 mls/hr DAILY AMADO Administration Ipratropium [place] 0.5 mg 11/23/19 15:00 11/25/19 19:34 Atrovent INH 0.5 mg RTQID AMADO Administration Levalbuterol HCl 1.25 mg 11/22/19 19:00 11/24/19 00:32 Xopenex INH 1.25 mg RTQ4H PRN Administration SHORTNESS OF AIR/WHEEZING Levalbuterol HCl 1.25 mg 11/22/19 19:00 11/25/19 19:34 Xopenex INH 1.25 mg RTQID AMADO Administration Lorazepam 0.5 mg 11/22/19 17:12 11/26/19 09:12 Ativan Inj (Vial) IVP 0.5 mg Q2H PRN Administration Anxiety Methylprednisolone 40 mg 11/22/19 18:00 11/26/19 11:42 Solu-Medrol (40mg Vial) IVP 40 mg Q6HR AMADO Administration Metoprolol Succinate 25 mg 11/23/19 09:00 11/26/19 08:45 Toprol Xl PO 25 mg DAILY AMADO Administration Montelukast Sodium 10 mg 11/22/19 21:00 11/25/19 20:39 Singulair PO 10 mg QPM AMADO Administration Morphine Sulfate 1 mg 11/22/19 16:59 11/26/19 11:39 Morphine (Carpuject) IVP 1 mg Q3HR PRN Administration Dyspnea Multivitamins 1 tab 11/23/19 09:00 11/26/19 08:45 Theragran PO 1 tab DAILY AMADO Administration (Balsalazide 3,000 mg 11/22/19 21:00 11/25/19 20:41 Disodium [ PO 3,000 mg Balsalazide Disodium QPM AMADO Administration ] 3,000 Mg) (Balsalazide 3,750 mg 11/23/19 09:00 11/26/19 08:57 Disodium [ PO 3,750 mg Balsalazide Disodium DAILY AMADO Administration ] 3,750 Mg) (Mesalamine [ 4 gm 11/22/19 21:00 11/25/19 20:44 Mesalamine] 4 Gm) [place] Not Given QPM AMADO Ondansetron HCl 4 mg 11/22/19 16:59 11/23/19 05:36 Zofran Inj IVP 4 mg Q6HR PRN Administration Nausea / Vomiting Pantoprazole Sodium 40 mg 11/23/19 07:00 11/26/19 06:11 Protonix IVP 40 mg QDAC AMADO Administration Saccharomyces Boulardii 250 mg 11/23/19 08:00 11/26/19 08:44 Florastor PO 250 mg BIDWM AMADO Administration Sodium Chloride 10 ml 11/22/19 17:00 11/26/19 08:49 Normal Saline Flush 0.9% IVP 10 ml 0100,0900,1700 AMADO Administration Sodium Chloride 10 ml 11/22/19 16:59 11/26/19 06:11 Normal Saline Flush 0.9% IVP 20 ml PRN PRN Administration NEEDED PER PROVIDER ORDERS Trazodone HCl 100 mg 11/22/19 21:00 11/25/19 20:43 Desyrel PO 100 mg QPM AMADO Administration - Lab Result Fish Bone Diagrams: 11/25/19 05:15 11/25/19 05:15 - Additional Planning My Orders: My Active Orders 11/27/19 Consult [Palliative Care Consult] [CONS] Routine Objective Vital Signs: Vital Signs - 24 hr 11/25/19 11/25/19 11/25/19 14:22 15:20 15:40 Temperature Heart Rate Heart Rate [ Monitoring electrodes] Respiratory 18 15 Rate Respiratory 28 H Rate [With Activity] Blood Pressure [Left Brachial artery] O2 Saturation 86 L 89 L O2 Saturation [ 85 L With Activity] 11/25/19 11/25/19 11/25/19 15:45 17:00 18:00 Temperature 98.6 C H Heart Rate 89 Heart Rate [ 94 Monitoring electrodes] Respiratory 18 18 15 Rate Respiratory Rate [With Activity] Blood Pressure 128/67 [Left Brachial artery] O2 Saturation 90 L 89 L O2 Saturation [ With Activity] 11/25/19 11/25/19 11/26/19 19:30 20:37 00:11 Temperature 37.0 C 36.7 C Heart Rate 91 Heart Rate [ 99 93 Monitoring electrodes] Respiratory 18 19 17 Rate Respiratory Rate [With Activity] Blood Pressure 149/74 H 137/77 H [Left Brachial artery] O2 Saturation 91 L 91 L O2 Saturation [ With Activity] 11/26/19 11/26/19 05:00 08:40 Temperature 36.8 C 36.6 C Heart Rate Heart Rate [ 103 H 94 Monitoring electrodes] Respiratory 26 H 22 Rate Respiratory Rate [With Activity] Blood Pressure 146/97 H 141/72 H [Left Brachial artery] O2 Saturation 87 L O2 Saturation [ With Activity] Oxygen O2 Source [With Activity] Nasal cannula O2 Source Oxymizer Oxygen Flow Rate 15 I&O (Last 24 Hrs): Intake and Output Totals x24h 11/24/19 11/25/19 11/26/19 23:59 23:59 23:59 Intake Total 3750 820 1250 Output Total 3000 925 650 Balance 750 -105 600 General: Alert, Oriented x3 HEENT: Mucous membr. moist/pink, Other (Cushingoid appearing. She is wearing an Oxymizer nasal cannula) Neck: Supple, No JVD Neuro: Alert, Non Focal Cardiovascular: Regular rate, No murmurs Respiratory: No respiratory distress, Breath sounds nml (Good air entry on the right with no wheezing, the left posterior base has mild wheezing.) Abdomen: Soft, No tenderness Extremities: No edema - Results Results: Laboratory Results WBC 14.4 x10^3/uL (4.8-10.8) H 11/25/19 05:15 RBC 3.17 10^6/uL (4.20-5.40) L 11/25/19 05:15 Hgb 8.7 g/dL (12.0-16.0) L 11/25/19 05:15 Hct 28.9 % (37.0-47.0) L 11/25/19 05:15 MCV 91.2 fL (81.0-99.0) 11/25/19 05:15 MCH 27.4 pg (27.0-31.0) 11/25/19 05:15 MCHC 30.1 g/dL (32.0-36.0) L 11/25/19 05:15 RDW 16.4 % (12.0-15.0) H 11/25/19 05:15 Plt Count 389 10^3/uL (130-450) 11/25/19 05:15 MPV 8.6 fL (7.9-10.8) 11/25/19 05:15 Neut # (Auto) 12.9 10^3/uL (1.5-6.6) H 11/25/19 05:15 Lymph # (Auto) 0.8 10^3/uL (1.5-3.5) L 11/25/19 05:15 [place] # (Auto) 0.4 10^3/uL (0.0-1.0) 11/25/19 05:15 Eos # (Auto) 0.0 10^3/uL (0.0-0.7) 11/25/19 05:15 Baso # (Auto) 0.0 10^3/uL (0.0-0.1) 11/25/19 05:15 Absolute Nucleated RBC 0.00 x10^3/uL 11/25/19 05:15 Nucleated RBC % 0.0 /100WBC 11/25/19 05:15 PT 12.4 secs (9.9-12.6) 11/22/19 17:30 INR 1.1 (0.8-1.2) 11/22/19 17:30 Bld Gas Analysis Time 1311 11/22/19 13:07 Sample Site RIGHT BRACHIAL 11/22/19 13:07 ABG pH 7.47 (7.35-7.45) H 11/22/19 13:07 ABG pCO2 37 mmHg (34-45) 11/22/19 13:07 ABG pO2 66 mmHg (80-100) L 11/22/19 13:07 ABG HCO3 26.3 mmol/L (22.0-26.0) H 11/22/19 13:07 ABG Total CO2 27.5 MMOL/L (21.0-29.0) 11/22/19 13:07 ABG O2 Saturation 93 % (94-98) L 11/22/19 13:07 ABG Base Excess 2.7 mmol/L (-2.0-3.0) 11/22/19 13:07 Ugo Test NOT APPLICABLE 11/22/19 13:07 O2 Delivery Device NON REBREATHER MASK 11/22/19 13:07 O2 Liters/Min 15.00 LPM 11/22/19 13:07 Sodium 140 mmol/L (135-145) 11/25/19 05:15 Potassium 3.2 mmol/L (3.5-5.0) L 11/25/19 05:15 Chloride 107 mmol/L (101-111) 11/25/19 05:15 Carbon Dioxide 27 mmol/L (21-32) 11/25/19 05:15 Anion Gap 6.0 (6-13) 11/25/19 05:15 BUN 17 mg/dL (6-20) 11/25/19 05:15 Creatinine 0.6 mg/dL (0.4-1.0) 11/25/19 05:15 Estimated GFR (MDRD) 101 (>89) 11/25/19 05:15 Glucose 135 mg/dL (70-100) H 11/25/19 05:15 Lactic Acid 0.9 mmol/L (0.5-2.2) 11/22/19 17:30 Calcium 8.2 mg/dL (8.5-10.3) L 11/25/19 05:15 Phosphorus 4.0 mg/dL (2.5-4.6) 11/23/19 05:10 Magnesium 2.1 mg/dL (1.7-2.8) 11/23/19 05:10 Iron 22 ug/dL (28-170) L 11/23/19 05:10 TIBC 269 ug/dL (250-450) 11/23/19 05:10 % Saturation 8 % (20-50) L 11/23/19 05:10 Transferrin 192 mg/dL (192-382) 11/23/19 05:10 Total Bilirubin 0.7 mg/dL (0.2-1.0) 11/22/19 12:49 AST 26 IU/L (10-42) 11/22/19 12:49 ALT 15 IU/L (10-60) 11/22/19 12:49 Alkaline Phosphatase 61 IU/L (42-121) 11/22/19 12:49 Troponin I High Sens 2.8 ng/L (2.3-14.8) 11/22/19 17:30 B-Natriuretic Peptide 88 pg/mL (5-100) 11/22/19 17:30 Total Protein 6.4 g/dL (6.7-8.2) L 11/22/19 12:49 Albumin 3.3 g/dL (3.2-5.5) 11/22/19 12:49 Globulin 3.1 g/dL (2.1-4.2) 11/22/19 12:49 Albumin/Globulin Ratio 1.1 (1.0-2.2) 11/22/19 12:49 Lipase 26 U/L (22-51) 11/22/19 12:49 Vitamin B12 446 pg/mL (180-914) 11/23/19 05:10 Folate 16.79 ng/mL (5.90 - >24.8) 11/23/19 05:10 TSH 0.43 uIU/mL (0.34-5.60) 11/22/19 17:30 Urine Color YELLOW 11/22/19 21:44 Urine Clarity CLEAR (CLEAR) 11/22/19 21:44 Urine pH 6.0 PH (5.0-7.5) 11/22/19 21:44 Ur Specific [place] <=1.005 (1.002-1.030) 11/22/19 21:44 Urine Protein NEGATIVE mg/dL (NEGATIVE) 11/22/19 21:44 Urine Glucose (UA) NEGATIVE mg/dL (NEGATIVE) 11/22/19 21:44 Urine Ketones NEGATIVE mg/dL (NEGATIVE) 11/22/19 21:44 Urine Occult Blood NEGATIVE (NEGATIVE) 11/22/19 21:44 Urine Nitrite POSITIVE (NEGATIVE) H 11/22/19 21:44 Urine Bilirubin NEGATIVE (NEGATIVE) 11/22/19 21:44 Urine Urobilinogen 0.2 (NORMAL) E.U./dL (NORMAL) 11/22/19 21:44 Ur Leukocyte Esterase SMALL (NEGATIVE) H 11/22/19 21:44 Urine RBC None Seen /HPF (0-5) 11/22/19 21:44 Urine WBC 6-10 /HPF (0-5) H 11/22/19 21:44 Ur Squamous Epith Cells NONE SEEN (<= Few) 11/22/19 21:44 Urine Bacteria Few /HPF (None Seen) 11/22/19 21:44 Ur Microscopic Review INDICATED 11/22/19 21:44 Urine Culture Comments INDICATED 11/22/19 21:44 Nasal Screen MRSA (PCR) NEGATIVE (NEGATIVE) 11/22/19 18:41 Coronavirus (PCR) NEGATIVE 11/22/19 18:41
[2019-11-26] MEDS: IPRATROPIUM 0.2 MG/ML NEB INH SCH ×4 (13:36→19:55)
[2019-11-26] MEDS: BUDESONIDE 0.5 MG/2 ML NEB INH SCH ×2 (13:37→19:58)
[2019-11-26] MEDS: LEVALBUTEROL 1.25 MG/3 ML NEB INH SCH ×4 (13:37→19:58)
[2019-11-26] MEDS: BENZONATATE 100 MG CAPSULE PO PRN (15:58)
[2019-11-26] MEDS: ATORVASTATIN 40 MG TABLET PO SCH (21:02)
[2019-11-26] MEDS: traZODone 50 MG TABLET PO SCH (21:02)
[2019-11-26] MEDS: MONTELUKAST 10 MG TABLET PO SCH (21:03)
[2019-11-27] MEDS: SODIUM CHLORIDE FLUSH 0.9% 10 ML SYRINGE IVP PRN ×5 (04:59→13:39)
[2019-11-27] MEDS: MORPHINE 2 MG/ML CARPUJECT IVP PRN ×3 (04:59→11:04)
[2019-11-27] MEDS: BENZONATATE 100 MG CAPSULE PO PRN (04:59)
[2019-11-27] MEDS: busPIRone 5 MG TABLET PO SCH ×2 (06:27→13:35)
[2019-11-27] MEDS: methylPREDNISolone SUCCINATE 40 MG/ML VIAL IVP SCH ×2 (06:27→12:41)
[2019-11-27] MEDS: HYDROcod/ACETAM 5/325 MG TABLET PO PRN ×2 (06:27→10:07)
[2019-11-27] MEDS: PANTOPRAZOLE 40 MG VIAL IVP SCH (06:28)
[2019-11-27] MEDS: SACCHAROMYCES BOULARDII 250 MG CAPSULE PO SCH (08:05)
[2019-11-27] MEDS: guaiFENesin 600 MG TABLET PO SCH (08:05)
[2019-11-27] MEDS: MULTIVITAMIN TABLET PO SCH (08:06)
[2019-11-27] MEDS ORDERED: POTASSIUM CHLORIDE 20 MEQ TABLET PO SCH (08:06)
[2019-11-27] MEDS: CITALOPRAM 10 MG TABLET PO SCH (08:08)
[2019-11-27] MEDS: ALPRAZolam 0.25 MG TABLET PO SCH (08:09)
[2019-11-27] MEDS: SODIUM CHLORIDE FLUSH 0.9% 10 ML SYRINGE IVP SCH (08:14)
[2019-11-27] MEDS: METOPROLOL SUCCINATE 25 MG TABLET PO SCH (08:15)
[2019-11-27] MEDS: cefTRIAXone 2 GM in SODIUM CHLORIDE 0.9% MINIBAG 100 ML IV SCH (08:16)
[2019-11-27] MEDS: ENOXAPARIN 40 MG/0.4 ML SYRINGE SUBQ SCH (08:29)
[2019-11-27] MEDS: BALSALAZIDE DISODIUM PO SCH (08:30)
[2019-11-27] MEDS: FLUTICASONE NASAL SPRAY NAS SCH (08:31)
[2019-11-27] MEDS ORDERED: MORPHINE SOL 10 MG/0.5 ML SYRINGE PO PRN (10:41)
--- NOTE | 2019-11-27 10:54 | Discharge Plan ---
Discharge Plan Problem Reviewed?: Yes Disposition: Home Health Service Prescriptions: Ciprofloxacin [Cipro] 250 mg PO Q12H #8 tablet Morphine Sulfate [Morphine Sulf Oral (Roxanol)] 10 mg PO Q4H PRN #30 ml PRN Reason: Pain/Dyspnea predniSONE [Prednisone 21-TAB dose pack] 10 mg PO UD #1 each Diet: Regular Activity Restrictions: Activity as Tolerated Shower Restrictions: Yes (beside bath) Driving Restrictions: Yes (no driving) Assistance Devices: Wheelchair, Other (diego lift) Weight Bearing: Full Weight Health Concerns: You were admitted to the hospital because of severe shortness of breath. You have a known history of emphysema and a lung tumor. And this has caused you to have more more shortness of breath over time. This time, your shortness of breath seems to be caused by obstruction of part of your lung bronchial tube from tumor causing it to close off and causing pneumonia. Treatment has consisted of IV antibiotics, steroids, and nebulizers. Unfortunately you have severe anxiety, and your helps you tremendously with that. While you were here we treated you with Ativan. Plan of Treatment: 1. You will need to finish antibiotics at home. E. coli grew in your sputum, which is a bacteria. You will take 4 more days of antibiotics by mouth to complete therapy. 2. You will be sent home on a prednisone taper. You are familiar with and have done that before 3. We have asked our wonderful colleagues from palliative care to see you in consultation. You and your have spoken briefly to them today. They will follow-up with you at home. They are recommending that we change your pain medicine to Roxanol drops which are morphine drops. 4. Because you are still severely short of breath and desaturate on your oxygen level with simple movement, I will be ordering home health to help you with things such as bedside bathing, physical therapy, and watching your lung exam. 5. One of the things it causes you to be severely short of breath is to have to get out of bed to urinate. As such we have inserted a De Souza catheter before you left. Home health will be able to check on the status of your De Souza catheter every time they see you. 6. Please try to see your primary care provider to update him on your condition. See if they can visit with your via Telemedicine visit. Care Goals: Our goal is to keep you as comfortable as possible and reduce the amount of stress you are living with. With that in mind, palliative care consultation will continue to see you at home. We also hope that home health will help you with simple things such as bathing so that you do not get short of breath. Assessment: This current plan was discussed with her . The patient herself has severe anxiety and usually does not want to have these conversations and will put her on the phone for us to discuss this over speaker phone. He and she understand the plan and will follow through. Follow-Up Care: Home Health - RN No Smoking: If you smoke, Please STOP! Call for help. Follow-up with: Haydee MONCADA, Nicola [Other]
[2019-11-27] MEDS: LORazepam 2 MG/ML VIAL IVP PRN (13:36)
[2019-11-27 16:37] VITALS: BP 126/74
--- NOTE | 2019-12-02 12:07 | DISCHARGE SUMMARY ---
Physician: Laya Mosqueda MD DATE OF ADMISSION: 11/22/2019 DATE OF DISCHARGE: 11/27/2019 DISCHARGE DIAGNOSES: 1. Sepsis. 2. Postobstructive pneumonia. 3. [id number] respiratory failure with hypoxia. 4. Chronic obstructive pulmonary disease exacerbation. 5. Lung cancer. 6. Anxiety disorder. 7. Iron-deficiency anemia. 8. Ulcerative colitis. DISCHARGE MEDICATIONS: 1. Alprazolam 0.25 mg tablet, 1-2 tablets daily as needed for anxiety. 2. Atorvastatin 80 mg daily. 3. Balsalazide disodium 3750 mg daily. 4. Symbicort 84/4.5 2 puffs b.i.d. 5. Buspirone 20 mg p.o. t.i.d. 6. Citalopram 40 mg daily. 7. Flonase nasal spray 2 sprays each nostril daily. 8. Vicodin 5/325 one tablet 4 times a day as needed for pain. 9. Atrovent inhaler via nebulizer 4 times a day as needed for wheezing. 10. Zestril 5 mg daily. 11. Mesalamine 4 gram per rectum at night. 12. Metoprolol succinate 25 mg daily. 13. Theragran Multivitamin daily. 14. Sumatriptan 20 mg nasally once a day as needed for migraine headache, may repeat x1. 15. Spiriva 1 puff in the evening. 16. Trazodone 100 mg in the evening. 17. Cipro 250 b.i.d. 18. Mucinex 1200 mg b.i.d. 19. Prednisone taper. 20. Roxanol drops 10 mg every 2 hours as needed. DIAGNOSTIC DATA: 1. Chest x-ray compared to 09/2019 showing similar appearance of interstitial and airspace opacities in the left mid lung and bilateral lung bases. Could be due to edema, chronic fibrotic changes, mul tifocal pneumonia or aspiration. Blunting of left costophrenic sulci suspicious for small left pleur al effusion. Prominent left hilar contour raising the possibility of left hilar adenopathy. 2. Chest thorax CTA without pulmonary emboli. Complete consolidation of the left lower lobe with le ft lower lobe segmental airway narrowing. Peripheral consolidation within the posterior aspect of th e left upper lobe. Moderate reticular opacities throughout both lungs. Moderate emphysema. No pneu mothorax. Several nonspecific ground glass and ovoid nodules in the right lower lobe and left upper lobe. Hilar and mediastinal lymphadenopathy noted. Multiple enlarged left hilar lymph nodes. Subca rinal lymph node. 3. Followup chest x-ray 2 days later showed persistent bilateral interstitial infiltrates. No signi ficant improvement. 4. Urine cultures with polymicrobial growth. 5. Gram stain of respiratory culture canceled. Unable to obtain. 6. Second sputum culture showed Escherichia coli. 7. Echocardiogram with normal left ventricular size, ejection fraction 65%-70%. Right ventricle nor mal in size and function. Mild tricuspid regurgitation and probably mildly abnormal right heart pres sure with an RVSP at rest not well quantified. HOSPITAL COURSE: The patient is a 64-year-old female who has known lung cancer and is a heavy smoker and also has COPD. She was admitted 2 months ago with pneumonia and COPD exacerbation and had marke d anxiety. She would not even allow a CT scan because of claustrophobia and anxiety. Two months ago, COVID testing was negative. At this time, she presents with 2 days of worsening shortness of breath , cough and in spite of increasing her inhaler treatments and her own oxygen settings, she has had no improvement and presents to the Emergency Room. She describes white blood-tinged sputum with her co ugh. O2 saturations were in the 70s despite being 6 liters. Put on a nonrebreather mask, given Ativ an and chest x-ray shows possible left-sided infiltrates. She agreed to undergo a CT angiogram, whic h showed no emboli but had probable community-acquired pneumonia, most likely due to postobstructive pneumonia and her cancer. For her hospital course, it was mainly the pneumonia treatment and dealing with her anxiety. We were instructed by her and her to not discuss any of her case with her. [facility] and, discuss the case and then he would interpret and then tell her what was going on. They did do t his on a daily basis and she was aware of her overall condition. Advanced care planning conversation was held at length and she is DO NOT RESUSCITATE. She eventually responded to the antibiotic therapy and returned to baseline hypoxemia. COPD exacerba tion and acute respiratory failure gradually resolved. She was sent home to finish her Escherichia c magda treatment that was growing in her sputum. The pharmacy called and asked me to change her prednis one taper to a Depo-Medrol taper and I did so. The pharmacy also initially called to tell me that the y could not fill her Roxanol because it was not covered by insurance. The patient decided to self-pa y and she ended up getting her Roxanol. Because of severe dyspnea on exertion with just simple activ ities such as sitting up to transfer, she asked for a De Souza catheter to go home with. Considering th is patient is transitioning to palliative if not hospice care, we felt that was a reasonable request. She is sent home with home health to have the status of her De Souza checked. I have asked her to see her Primary Care provider via telemedicine. I have asked her Primary Care provider to please refer her to Palliative Care. She is discharged in stable condition with a poor prognosis. PHYSICAL EXAMINATION: VITAL SIGNS: Temperature is 37.1, pulse is 95, blood pressure 126/74, respirations 90% saturated on er 6 liters Oxymizer. This is baseline for her. GENERAL: She is 5 feet tall and weighs 76.5 kg. Short-statured, morbidly obese female who is marko ative but any anxiety on her part results in a flood of tears, hyperventilation and desaturation. At this time, she is stable. LUNGS: Coarse lung sounds still present diffusely. Dull left base. Scattered wheezing. At rest, she has no labored respiration, no respiratory distress. With sitting up to transfer or walk, she desatu rates and gets tachypneic. It takes her about 4 minutes to recover. She says this is her baseline at home. CARDIOVASCULAR: PMI is normally placed, distant cardiac tones with a regular rate and rhythm. ABDOMEN: Obese, soft, nontender. EXTREMITIES: Legs with trace edema. Greater than 30 minutes were spent coordinating discharge and the case was discussed at length with h er , so that he could communicate all of this to her. TD: 12/02/2019 10:33
== END 2019-11-27 16:36 | disposition home health service (06) | DRG 871 ==
LOC: EDUNIT# → ED 12:09 → ICU 16:59
PROVIDERS: ADMIT Internal Medicine; ATTEND Specialist
DX: A41.51 Sepsis due to Escherichia coli [E. coli] (principal); J96.21 Acute and chronic respiratory failure with hypoxia; J15.5 Pneumonia due to Escherichia coli; C34.92 Malignant neoplasm of unspecified part of left bronchus or lung; K51.90 Ulcerative colitis, unspecified, without complications; J43.9 Emphysema, unspecified; F41.9 Anxiety disorder, unspecified; D50.9 Iron deficiency anemia, unspecified; I95.9 Hypotension, unspecified; R59.0 Localized enlarged lymph nodes; R32 Unspecified urinary incontinence; R35.1 Nocturia; R35.0 Frequency of micturition; Z66 Do not resuscitate; Z20.828 Contact with and (suspected) exposure to other viral communicable diseases; E66.01 Morbid (severe) obesity due to excess calories; Z68.32 Body mass index [BMI] 32.0-32.9, adult; Z99.81 Dependence on supplemental oxygen; Z87.891 Personal history of nicotine dependence; Z79.51 Long term (current) use of inhaled steroids; Z79.891 Long term (current) use of opiate analgesic
CPT/HCPCS: 36415; 36600; 71045; 71275; 80048; 80053; 81001; 82607; 82746; 82803; 83540; 83605; 83690; 83735; 83880; 84100; 84443; 84466; 84484; 85025; 85610; 87070; 87077; 87086; 87150; 87181; 87205; 87635; 93005; 93306; 94640; 96374; 96375; 97162; 97530; 99285; A9270; J1650; J2060; J7626; Q9967; 81003; 81599

== ENCOUNTER 2019-11-27 16:39 | Outpatient (CLI) | payer MEDICAID | END 2019-11-27 16:40 | disposition home or self-care (01) | LOC: EMS 16:39 | PROVIDERS: ATTEND Surgery | DX: J18.9 Pneumonia, unspecified organism (principal); C34.90 Malignant neoplasm of unspecified part of unspecified bronchus or lung; Z74.01 Bed confinement status; Z99.81 Dependence on supplemental oxygen | CPT/HCPCS: A0425; A0428 ==

== ENCOUNTER 2020-01-17 08:42 | Outpatient (CLI) | payer MEDICAID | END 2020-01-17 08:43 | disposition critical access hospital (66) | LOC: EMS 08:42 | PROVIDERS: ATTEND Surgery | DX: R05 Cough (principal); R06.02 Shortness of breath | CPT/HCPCS: A0425; A0429; A0999 ==

== ENCOUNTER 2020-01-17 09:22 | Emergency (ER) | payer MEDICAID ==
--- NOTE | 2020-01-17 09:37 | ED Physician Documentation ---
History of Present Illness - Stated complaint Stated Complaint: COUGH - Chief complaint Chief Complaint: Resp - History obtained from History obtained from: Patient, Family, EMS - Additonal information Additional information: Patient is brought to the emergency department by EMS for chief complaint of "I think I am getting pneumonia again". The patient states that she has a history of lung cancer which is not currently being treated with any modality. She is currently considered palliative care, but is not hospice. The patient has a caregiver that comes in once a week, but is otherwise cared for by her . She states that her and the caregiver were concerned because the patient has had increased "gurgling" in the evenings and is coughing more at night. Patient states that this is happened previously when she is gotten pneumonia. Per medics, the stated they wanted to "head it off" before the pneumonia becomes more severe, as the patient prefers not to be hospitalized if at all possible. Patient states that right now, she feels "great". She denies any shortness of breath. She states she is not having any gurgling, and that her cough is at its normal. The patient uses 6 L of oxygen per nasal cannula [id number] at home, and states that her oxygen saturation has actually been quite good, by her standards. She states that she has not had any fevers. Medics have noted good oxygen saturation en route. No other complaints at this time. Review of Systems Ten Systems: 10 systems reviewed and negative Constitutional: reports: Reviewed and negative Eyes: reports: Reviewed and negative Ears: reports: Reviewed and negative Nose: reports: Reviewed and negative Throat: reports: Reviewed and negative Cardiac: reports: Reviewed and negative Respiratory: reports: Cough GI: reports: Reviewed and negative : reports: Reviewed and negative Skin: reports: Reviewed and negative Musculoskeletal: reports: Reviewed and negative Neurologic: reports: Reviewed and negative Psychiatric: reports: Reviewed and negative Endocrine: reports: Reviewed and negative Immunocompromised: reports: Reviewed and negative PD PAST MEDICAL HISTORY - Past Medical History Cardiovascular: Hypertension, High cholesterol, Coronary artery disease, Peripheral Vascular Disease, Murmur Respiratory: COPD, Emphysema, Shortness of breath, Other Neuro: Headaches, Migraines Endocrine/Autoimmune: None GI: GERD, Ulcerative colitis [employer]: None : Incontinence, Nocturia, Frequency HEENT: Chronic vision loss, Chronic sinusitis, Chronic hearing loss Psych: Anxiety Musculoskeletal: Osteoarthritis, Fatigue, Chronic back pain Derm: None - Past Surgical History Past Surgical History: Yes General: Colonoscopy, EGD - Present Medications Home Medications: Ambulatory Orders Medication Instructions Recorded Confirmed Atorvastatin Calcium 80 mg PO QPM 09/15/19 11/22/19 Balsalazide Disodium 3,750 mg PO DAILY 09/15/19 11/22/19 Budesonide/Formoterol Fumarate 2 puffs INH BID 09/15/19 11/22/19 [Symbicort 80-4.5 Mcg Inhaler] Buspirone HCl 20 mg PO TID 09/15/19 11/22/19 Citalopram Hydrobromide 40 mg PO DAILY 09/15/19 11/22/19 [Citalopram HBr] Fluticasone [Flonase] 2 sprays JEANNE DAILY 09/15/19 11/22/19 Hydrocodone/Acetaminophen 1 tab PO QID PRN 09/15/19 11/22/19 [Hydrocodone-Acetamin 5-325 mg] Ipratropium [Atrovent] 0.2 mg INH QID PRN 09/15/19 11/22/19 Mesalamine 4 gm TN QPM 09/15/19 11/22/19 Metoprolol Succinate 25 mg PO DAILY 09/15/19 11/22/19 SUMAtriptan [Sumatriptan] 20 mg JEANNE Q24H PRN MDD 40MG 09/15/19 11/22/19 Tiotropium Melber [Spiriva] 1 puffs INH QPM 09/15/19 11/22/19 Trazodone HCl 100 mg PO QPM 09/15/19 11/22/19 lisinopriL [Zestril] 5 mg PO DAILY 09/15/19 11/22/19 Balsalazide Disodium 3,000 mg PO QPM 09/17/19 11/22/19 ALPRAZolam [Alprazolam] 0.25 - 0.5 mg PO DAILY 11/22/19 11/22/19 Multivitamin [Theragran] 1 tab PO DAILY 11/22/19 11/22/19 Ciprofloxacin [Cipro] 250 mg PO Q12H #8 tablet 11/27/19 Hydrocodone/Acetaminophen [Kayenta 1 each PO Q6H PRN #30 tablet 05/26/20 5-325 Tablet] guaiFENesin [Mucinex] 1,200 mg PO BID tablet 11/27/19 predniSONE [Prednisone 21-TAB dose 10 mg PO UD #1 each 11/27/19 pack] Azithromycin [Zithromax] 0 mg PO DAILY #6 tablet 01/17/20 - Allergies Allergies/Adverse Reactions: Allergies Allergy/AdvReac Type Severity Reaction Status Date / Time Penicillins Allergy Rash Verified 01/17/20 09:34 - Social History Does the pt smoke?: No Smoking Status: Never smoker Does the pt drink ETOH?: Yes Does the pt have substance abuse?: No - Immunizations Immunizations are current?: No - POLST Patient has POLST: No POLST Status: Full Code PD ED PE NORMAL - Vitals Vital signs reviewed: Yes - General General: Alert and oriented X 3, No acute distress, Well developed/nourished - HEENT HEENT: Atraumatic, PERRL, EOMI, Moist mucous membranes - Neck Neck: Supple, no meningeal sign - Cardiac Cardiac: RRR, No murmur, Strong equal pulses - Respiratory Respiratory: No respiratory distress, Clear bilaterally - Abdomen Abdomen: Soft, Non tender, Non distended - Derm Derm: Normal color, Warm and dry, No rash - Extremities Extremities: No deformity, No edema, No calf tenderness / cord - Neuro Neuro: Alert and oriented X 3, Other (Grossly normal) - Psych Psych: Normal mood, Normal affect Results - Vitals Vitals: Vital Signs - 24 hr 01/17/20 01/17/20 09:22 09:32 Temperature 36.7 C 37 C Heart Rate 88 80 Respiratory 20 16 Rate Blood Pressure 112/62 126/74 O2 Saturation 98 100 Oxygen O2 Source [With Activity] Nasal cannula O2 Source Room air Oxygen Flow Rate 6 - Rads (name of study) chest xr Radiology: Final report received, EMP read indepedently, See rad report (Final radiologist impression: Bilateral interstitial and alveolar airspace opacities, possibly pulmonary edema, infectious infiltration, hemorrhage, or cancer related. Findings of malignancy also noted.) PD MEDICAL DECISION MAKING - ED course Complexity details: reviewed results, re-evaluated patient, considered differential, d/w patient ED course: The patient was worked up in the emergency department with a chest x-ray. She was very well-appearing, and her oxygen saturation on her usual 6 L of oxygen was 98%. She displayed no respiratory distress, and was afebrile here. Chest x-ray did show changes consistent with a cancer and radiologist's interpretation stated that pneumonia cannot be ruled out. Was given doses of Rocephin and Zithromax here in the emergency department. I have reevaluated the patient who continues to do well. Patient's significant other was also in the room. I did not feel the patient needed admission to the hospital, and it is the patient's preference that she be treated at home anyway. I will place her on Zithromax as an outpatient and she is advised to follow-up with her primary care physician if needed. Patient and are agreeable to this plan. We have discussed the usual indications for return. Departure - Departure Disposition: 01 Home, Self Care Clinical Impression: Pneumonia Qualifiers: Pneumonia type: due to unspecified organism Laterality: bilateral Lung location: lower lobe of lung Qualified Code(s): J18.9 - Pneumonia, unspecified organism Condition: Stable Instructions: ED Pneumonia Adult Prescriptions: Azithromycin [Zithromax] 0 mg PO DAILY #6 tablet Comments: Your chest x-ray shows changes secondary to the cancer, which you are already aware of. The possibility of pneumonia is there, though it is difficult to tell for sure, secondary to your underlying condition. Given that you are at risk for pneumonia and have had some changes in your respiratory status over the last few days, we will go ahead and treat you with antibiotics to be on the safe side. You have been given your first doses here in the emergency department. Please take the azithromycin course, as directed until complete. Please follow- up with your primary care physician if you are not feeling better after this. If you develop high fevers or severe shortness of breath, please return to the emergency department immediately.
[2020-01-17] MEDS ORDERED: cefTRIAXone 2 GM VIAL IM STA (09:52)
[2020-01-17] MEDS ORDERED: AZITHROMYCIN 250 MG TABLET PO STA (09:53)
--- NOTE | 2020-01-17 10:06 | XRAY Report ---
PROCEDURE: Chest 1 View X-Ray INDICATIONS: Cough TECHNIQUE: One view of the chest was acquired. COMPARISON: 11/24/2019 chest radiograph; 11/22/2019 CT angiogram of the chest FINDINGS: There are bilateral interstitial and alveolar airspace opacities, left greater than right. Spiculated mass in the left apex seen on the comparison CT angiogram has no definite radiographic correlate. Th ere does appear to be mediastinal and perhaps hilar adenopathy, left greater than right. Heart size i s within normal limits. IMPRESSION: Bilateral interstitial and alveolar airspace opacities. This could represent pulmonary edema, infecti ous infiltration, pulmonary hemorrhage, or lymphangitic carcinomatosis. Findings may be secondary to obstructing bronchogenic neoplasm, as discussed on the comparison CT angiogram. Spiculated masslike opacity in the left upper lobe on the comparison CT chest as no definite radiogra phic correlate. Probable mediastinal and hilar lymphadenopathy, also suspicious for metastatic disease. Consider a CT of the chest with IV contrast if not already performed recently to evaluate the multipl e suspicious findings. Reviewed by: Aldair Pool MD on 01/17/2020 10:05 AM PDT Approved by: Aldair Pool MD on 01/17/2020 10:05 AM PDT Station ID: [id number]
[2020-01-17] MEDS ORDERED: LIDOCAINE 1% 2 ML VIAL SUBQ STA (10:07)
[2020-01-17] MEDS ORDERED: HYDROcod/ACETAM 5/325 MG TABLET PO STA (11:05)
[2020-01-17 11:50] VITALS: BP 118/74
== END 2020-01-17 11:50 | disposition home or self-care (01) ==
LOC: EDUNIT# → ED 09:22
DX: J18.9 Pneumonia, unspecified organism (principal); C34.90 Malignant neoplasm of unspecified part of unspecified bronchus or lung; J43.9 Emphysema, unspecified; Z99.81 Dependence on supplemental oxygen; I10 Essential (primary) hypertension
CPT/HCPCS: 71045; 96372; 99283; 99284; A9270

== ENCOUNTER 2020-01-17 11:51 | Outpatient (CLI) | payer MEDICAID | END 2020-01-17 11:52 | disposition home or self-care (01) | LOC: EMS 11:51 | PROVIDERS: ATTEND Surgery | DX: J18.9 Pneumonia, unspecified organism (principal); C34.90 Malignant neoplasm of unspecified part of unspecified bronchus or lung; Z99.81 Dependence on supplemental oxygen; R53.1 Weakness | CPT/HCPCS: A0425; A0428 ==